=== PATIENT | male | born 1975 | race Caucasian/White ===

== ENCOUNTER 2019-08-04 17:36 | Inpatient (IN) | payer SELFPAY ==
[~2019-08-04] VITALS: Ht 182.9 cm; Wt 83.3 kg
[2019-08-04] MEDS ORDERED: IV NORMAL SALINE 1000ML BAG 1,000 ML IV ONE ×3 (18:00→19:30)
[2019-08-04 18:09] LABS: BASO % 0 % (0-3); EOS % 0 % (0-3); HEMATOCRIT 42.1 % (39.0-53.0); HEMOGLOBIN 14.2 g/dL (13.0-17.5); LYMPH # 1.2 x10^3/uL (1.0-4.8); LYMPH % 12 % (24-48); MEAN CORPUSCULAR HEMOGLOBIN 35 pg (25-35); MEAN CORPUSCULAR HGB CONC 34 g/dL (31-37); MEAN CORPUSCULAR VOLUME 105 fL (79-100); MONO # 1.1 x10^3/uL (0.0-1.1); MONO % 11 % (0-9); NEUT # 7.7 x10^3/uL (1.8-7.7); NEUT % 77 % (31-73); PLATELET COUNT 104 x10^3/uL (140-400); RED BLOOD COUNT 4.02 x10^6/uL (4.30-5.70); RED CELL DISTRIBUTION WIDTH 13.3 % (11.5-14.5)
[2019-08-04 18:19] LABS: PROTHROMBIN TIME PATIENT 12.9 SEC (11.7-14.0)
[2019-08-04 18:31] LABS: ALBUMIN 3.5 g/dL (3.4-5.0); ALBUMIN/GLOBULIN RATIO 0.7 (1.0-1.7); CREATININE 1.1 mg/dL (0.7-1.3); GFR 73.1; MAGNESIUM 1.5 mg/dL (1.8-2.4); TOTAL BILIRUBIN 0.8 mg/dL (0.2-1.0); TOTAL PROTEIN 8.7 g/dL (6.4-8.2)
--- NOTE | 2019-08-04 18:35 | RAD ---
PORTABLE CHEST 1V History: Fever Comparison: None. Findings: No consolidation or pleural effusion. Normal heart size. No pneumothorax. Impression: 1. No acute cardiopulmonary process. Electronically signed by: Lisandro Rodriguez DO (08/04/2019 6:32 PM) [facility]
[2019-08-04 18:36] LABS: POTASSIUM 2.9 mmol/L (3.5-5.1)
[2019-08-04] MEDS ORDERED: POTASSIUM BICARB 20 MEQ EFFERVESCENT TABLET. PO ONE (18:45)
[2019-08-04 19:17] LABS: C-REACTIVE PROTEIN 22.3 mg/L (0-3.3)
--- NOTE | 2019-08-04 19:29 | PHYS DOC ---
Past Medical History Past Medical History: No Pertinent History Past Surgical History: No Surgical History Smoking Status: Never Smoker Alcohol Use: Occasionally General Adult EDM: Chief Complaint: DYSPNEA/RESPIRATOY DISTRESS HPI: HPI: Patient is a 43 year old male with unknown medical history who presents to the ED today with multiple complaints. Patient appears altered. He himself states he has had nausea, vomiting ,cough, SOA, fevers and chills for 1 month. He states he has been quarantining at his house for the last 1 month. He then wonders of another conversations that is not related to the visit, at times does not follow directions trying to get out of bed. At some point he stated he felt weak and hence the reason he called 911. Review of Systems: Review of Systems: Constitutional: Reports fever and chills Eyes: Denies change in visual acuity. [] HENT: Denies nasal congestion or sore throat. [] Respiratory: Reports cough and shortness of breath Cardiovascular: Denies chest pain or edema. [] GI: Denies abdominal pain, nausea, vomiting, bloody stools or diarrhea. [] : Denies dysuria. [] Musculoskeletal: Denies back pain or joint pain. [] Integument: Denies rash. [] Neurologic: Altered mental status. Denies headache, focal weakness or sensory changes. [] Endocrine: Denies polyuria or polydipsia. [] Lymphatic: Denies swollen glands. [] Psychiatric: Denies depression or anxiety. [] Heart Score: Risk Factors: Risk Factors: DM, Current or recent (<one month) smoker, HTN, HLP, family history of CAD, obesity. Risk Scores: Score 0 - 3: 2.5% MACE over next 6 weeks - Discharge Home Score 4 - 6: 20.3% MACE over next 6 weeks - Admit for Clinical Observation Score 7 - 10: 72.7% MACE over next 6 weeks - Early Invasive Strategies Current Medications: Current Medications Medications (Trade) Dose Ordered Sig/Cris Start Time Stop Time Status Last Admin Dose Admin Acetaminophen (Tylenol) 650 mg PRN Q4HRS PRN 08/04/19 19:30 08/05/19 19:29 Azithromycin 250 ml @ 250 mls/hr 1X ONCE 08/04/19 19:30 08/04/19 20:29 Ceftriaxone Sodium (Rocephin) 1 gm 1X ONCE 08/04/19 19:30 08/04/19 19:31 Ondansetron HCl (Zofran) 4 mg PRN Q8HRS PRN 08/04/19 19:30 08/05/19 19:29 Potassium Bicarbonate (Potassium Effervescent Tablet) 40 meq 1X ONCE 08/04/19 18:45 08/04/19 18:47 DC 08/04/19 19:02 40 MEQ Potassium Chloride/Sodium Chloride 1,000 ml @ 75 mls/hr 1X ONCE 08/04/19 21:00 08/05/19 10:19 Sodium Chloride 1,000 ml @ 1,000 mls/hr 1X ONCE 08/04/19 19:30 08/04/19 20:29 Allergies: Allergies: Allergies Coded Allergies Type Severity Reaction Last Updated Verified No Known Drug Allergies 08/04/19 No Physical Exam: PE: Constitutional: Well developed, well nourished, no acute distress, non-toxic appearance. [] HENT: Normocephalic, atraumatic, bilateral external ears normal, oropharynx moist, no oral exudates, nose normal. [] Eyes: PERRLA, EOMI, conjunctiva normal, no discharge. [] Neck: Normal range of motion, no tenderness, supple, no stridor. [] Cardiovascular:Heart rate regular rhythm, no murmur [] Lungs & Thorax: Bilateral breath sounds clear to auscultation [] Abdomen: Bowel sounds normal, soft, no tenderness, no masses, no pulsatile masses. [] Skin: Warm, dry, no erythema, no rash. [] Back: No tenderness, no CVA tenderness. [] Extremities: No tenderness, no cyanosis, no clubbing, ROM intact, no edema. [] Neurologic: Alert and oriented X 1, not following directions at times, normal motor function, normal sensory function, no focal deficits noted. [] Psychologic: flat Current Patient Data: Labs: Laboratory Tests Test 08/04/19 17:50 08/04/19 18:35 White Blood Count 10.0 x10^3/uL (4.0-11.0) Red Blood Count 4.02 x10^6/uL (4.30-5.70) L Hemoglobin 14.2 g/dL (13.0-17.5) Hematocrit 42.1 % (39.0-53.0) Mean Corpuscular Volume 105 fL (79-100) H Mean Corpuscular Hemoglobin 35 pg (25-35) Mean Corpuscular Hemoglobin Concent 34 g/dL (31-37) Red Cell Distribution Width 13.3 % (11.5-14.5) Platelet Count 104 x10^3/uL (140-400) L Neutrophils (%) (Auto) 77 % (31-73) H Lymphocytes (%) (Auto) 12 % (24-48) L Monocytes (%) (Auto) 11 % (0-9) H Eosinophils (%) (Auto) 0 % (0-3) Basophils (%) (Auto) 0 % (0-3) Neutrophils # (Auto) 7.7 x10^3/uL (1.8-7.7) Lymphocytes # (Auto) 1.2 x10^3/uL (1.0-4.8) Monocytes # (Auto) 1.1 x10^3/uL (0.0-1.1) Eosinophils # (Auto) 0.0 x10^3/uL (0.0-0.7) Basophils # (Auto) 0.0 x10^3/uL (0.0-0.2) Prothrombin Time 12.9 SEC (11.7-14.0) Prothrombin Time INR 1.0 (0.8-1.1) Activated Partial Thromboplast Time 28 SEC (24-38) Sodium Level 137 mmol/L (136-145) Potassium Level 2.9 mmol/L (3.5-5.1) *L Chloride Level 94 mmol/L (98-107) L Carbon Dioxide Level 20 mmol/L (21-32) L Anion Gap 23 (6-14) H Blood Urea Nitrogen 7 mg/dL (8-26) L Creatinine 1.1 mg/dL (0.7-1.3) Estimated GFR (Cockcroft-Gault) 73.1 BUN/Creatinine Ratio 6 (6-20) Glucose Level 153 mg/dL (70-99) H Lactic Acid Level 14.5 mmol/L (0.4-2.0) *H Calcium Level 9.0 mg/dL (8.5-10.1) Magnesium Level 1.5 mg/dL (1.8-2.4) L Ferritin 1689 ng/mL (26-388) H Total Bilirubin 0.8 mg/dL (0.2-1.0) Aspartate Amino Transferase (AST) 186 U/L (15-37) H Alanine Aminotransferase (ALT) 128 U/L (16-63) H Alkaline Phosphatase 106 U/L (46-116) Creatine Kinase 1184 U/L (39-308) H Creatine Kinase MB (Mass) 12.4 ng/mL (0.0-3.6) H Creatine Kinase MB Relative Index 1.0 % (0-4) Troponin I Quantitative < 0.017 ng/mL (0.000-0.055) C-Reactive Protein, Quantitative 22.3 mg/L (0-3.3) H UZ-Wbs-L-Type Natriuretic Peptide 58 pg/mL (0-124) Total Protein 8.7 g/dL (6.4-8.2) H Albumin 3.5 g/dL (3.4-5.0) Albumin/Globulin Ratio 0.7 (1.0-1.7) L Lipase 359 U/L (73-393) Procalcitonin 0.23 ng/mL (0.00-0.10) H Thyroid Stimulating Hormone (TSH) 1.181 uIU/mL (0.358-3.74) Ammonia 32 mcmol/L (11-34) Laboratory Tests 08/04/19 17:50 Laboratory Tests 08/04/19 17:50 Vital Signs: Vital Signs Date Time Temp Pulse Resp B/P (MAP) Pulse Ox O2 Delivery O2 Flow Rate FiO2 08/04/19 18:37 107 170/97 (121) 95 08/04/19 18:01 98.9 32 Room Air 98.9 EKG: EKG: [] Radiology/Procedures: Radiology/Procedures: []PROCEDURE: PORTABLE CHEST 1V PORTABLE CHEST 1V History: Fever Comparison: None. Findings: No consolidation or pleural effusion. Normal heart size. No pneumothorax. Impression: 1. No acute cardiopulmonary process. Electronically signed by: Lisandro Haas DO (08/04/2019 6:32 PM) [facility] DICTATED and SIGNED BY: LISANDRO HAAS DO DATE: 08/04/191831 Course & Med Decision Making: Course & Med Decision Making Pertinent Labs and Imaging studies reviewed. (See chart for details) This is a 43-year-old male patient presenting to the ED today with multiple complaints. Patient is altered on arrival to the ED. He is able to state he has had nausea vomiting fever chills for 1 month and today he was weak. He w joshua off into other conversations very easily and sometimes hard to reorient. Vitals on arrival to the ED temperature 98.9, heart rate 115, blood pressure 176/113, respirations 32 on room air, O2 sats 95% Chest x-ray interpreted by radiologist is negative for any acute findings, CT of the head is still pending. CBC with a normal WBC, CMP with K of 2.9 given 40 meq of K in the ED, glucose 153 with Anion gap of 23 likely dehydration, AST 186, ALT 128, CK 1184, lactic 14.5 repeat lactic ordered with IV fluids, Ferritin 1689, C-reactive 22.3 COVID 19 ordered Rocephin and Azithromycin ordered Spoke with Dr. Ayala who accepted patient for admission Dragon Disclaimer: Radha Disclaimer: This electronic medical record was generated, in whole or in part, using a voice recognition dictation system. Date and Time of Reassessment Date: August 04, 2019 Time: 19:40 Fluid Challenge Is the fluid challenge complet: No IBW Target Volume Used: Yes BMI > 30: No Vital Signs Vital Signs: Vital Signs Date Time Temp Pulse Resp B/P (MAP) Pulse Ox O2 Delivery O2 Flow Rate FiO2 08/04/19 18:37 107 170/97 (121) 95 08/04/19 18:01 98.9 32 Room Air 98.9 Temperature Source: Oral Respirations Respiratory Effort: Normal Respiratory Pattern: Normal Cardiovascular Pulse Rhythm: Regular Heart: Nml rate, reg. rhythm Lung Sounds Breath Sounds: Clear Capillary Refil Capillary Refill: Rt Hand > 3 seconds Peripheral Pulse Pulse Location: Monitor Pulse Strength: Normal (2+) Pulse Assessment Method: Monitor Integumentary Skin: Warm Skin Moisture: Dry Skin Turgor: Normal Skin Color: warm Fingernail Color: WNL Departure Departure Impression: Primary Impression: AMS (altered mental status) Qualified Codes: R41.82 - Altered mental status, unspecified Additional Impressions: Person under investigation for COVID-19 Shortness of breath Cough Rhabdomyolysis Qualified Codes: M62.82 - Rhabdomyolysis Sepsis Qualified Codes: A41.9 - Sepsis, unspecified organism Hypokalemia Disposition: ADMITTED INPATIENT Condition: STABLE Referrals: UNKNOWN PCP NAME (PCP) CHIO JORDAN APRN August 04, 2019 19:29
[2019-08-04] MEDS ORDERED: ONDANSETRON PF 4 MG/2 ML VIAL. IV PRN ×2 (19:30→20:30)
[2019-08-04] MEDS ORDERED: AZITHRMYCN 500MG IVPB FOR OMNI 250 ML IV ONE (19:30)
[2019-08-04] MEDS ORDERED: ACETAMINOPHEN 325 MG TABLET. PO PRN (19:30)
[2019-08-04] MEDS ORDERED: cefTRIAXone IV Push 1 GM VIAL. IVP ONE (19:30)
[2019-08-04] MEDS ORDERED: ALBUTEROL SULFATE 2.5 MG/3 ML NEBU. NEB PRN (20:30)
[2019-08-04] MEDS ORDERED: DOCUSATE SODIUM 100 MG CAPSULE. PO PRN (20:30)
[2019-08-04] MEDS: IV NORMAL SALINE 1000ML BAG 1,000 ML IV SCH ×3 (20:30→21:22)
[2019-08-04] MEDS ORDERED: SODIUM PHOSPHATES 19/7GM 133 ML ENEMA. PR PRN (20:30)
[2019-08-04] MEDS ORDERED: guaiFENesin ORAL 200 MG/10 ML LIQUID. PO PRN (20:30)
[2019-08-04] MEDS ORDERED: MAG HYDROX/ALUMINUM HYD/SIMETH 30 ML ORAL.SUSP PO PRN (20:30)
[2019-08-04] MEDS ORDERED: 0.9 % SODIUM CHLORIDE 10 ML DISP.SYRIN. IV PRN (20:30)
[2019-08-04] MEDS ORDERED: VANCOMYCIN 1GM IVPB FOR OMNI 250 ML IV ONE (21:00)
[2019-08-04] MEDS: hydrALAZINE 20 MG/ML VIAL. IVP PRN (21:14)
[2019-08-04] MEDS: ENOXAPARIN 40 MG/0.4 ML SYRINGE. SQ SCH (21:15)
[2019-08-04 21:16] LABS: D-DIMER 3.69 ug/mlFEU (0.00-0.50)
[2019-08-04] MEDS ORDERED: IV NORMAL SALINE 500ML BAG 500 ML IV PRN (21:30)
[2019-08-04] MEDS ORDERED: CEFEPIME HCL IV Push 1 GM VIAL. IVP SCH (22:00)
--- NOTE | 2019-08-04 23:25 | RAD ---
CT scan of the head without contrast 08/04/2019 Clinical History: Altered mental status. Technique: Unenhanced, contiguous, 5 mm axial sections were obtained through the head. One or more of the following individualized dose reduction techniques were utilized for this study: 1. Automated exposure control. 2. Adjustment of the mA and/or kV according to patient size. 3. Use of iterative reconstruction technique. Findings: There is generalized parenchymal atrophy. No acute parenchymal abnormality is seen. No extra-axial fluid collection is noted. No skull fracture is seen. Impression: No acute intracranial abnormality is seen. Electronically signed by: Domingo Reynolds MD (08/04/2019 11:22 PM) [id number]
--- NOTE | 2019-08-04 23:30 | NUR ---
The patient, ZHAO MCLEAN, 43 y/o, M admitted by [facility] SMITH MD, was given written information regarding hospital policies, unit procedures and contact persons. Valuables were checked and left with him.
[2019-08-04 23:45] VITALS: BP 134/80
[2019-08-05] VITALS (7 sets, daily range): BP systolic 125–182; BP diastolic 72–104
[2019-08-05] MEDS: CEFEPIME HCL IV Push 2 GM VIAL. IVP SCH ×4 (00:50→21:32)
[2019-08-05] MEDS: IV NORMAL SALINE 1000ML BAG 1,000 ML IV SCH ×2 (00:58→21:30)
[2019-08-05] MEDS: ACETAMINOPHEN 325 MG TABLET. PO PRN ×2 (01:33→11:41)
[2019-08-05 04:55] LABS: BASO % 0 % (0-3); EOS % 0 % (0-3); HEMATOCRIT 37.4 % (39.0-53.0); HEMOGLOBIN 12.8 g/dL (13.0-17.5); LYMPH # 0.9 x10^3/uL (1.0-4.8); LYMPH % 10 % (24-48); MEAN CORPUSCULAR HEMOGLOBIN 35 pg (25-35); MEAN CORPUSCULAR HGB CONC 34 g/dL (31-37); MEAN CORPUSCULAR VOLUME 102 fL (79-100); MONO # 0.9 x10^3/uL (0.0-1.1); MONO % 10 % (0-9); NEUT # 7.5 x10^3/uL (1.8-7.7); NEUT % 80 % (31-73); PLATELET COUNT 85 x10^3/uL (140-400); RED BLOOD COUNT 3.66 x10^6/uL (4.30-5.70); RED CELL DISTRIBUTION WIDTH 13.2 % (11.5-14.5); WHITE BLOOD COUNT 9.4 x10^3/uL (4.0-11.0)
[2019-08-05 05:12] LABS: CALCIUM 8.1 mg/dL (8.5-10.1); CREATININE 0.7 mg/dL (0.7-1.3); GFR 123.1
[2019-08-05 05:21] LABS: POTASSIUM 2.8 mmol/L (3.5-5.1)
--- NOTE | 2019-08-05 06:57 | EKG ---
[facility] [address] [place] [address] Test Date: 2019-08-04 Test Time: 17:48:51 Pat Name: ZHAO MCLEAN Department: Room: 2 Gender: M Manager Business Information: : 1975 Requested By: CHIO JORDAN Order Number: [id number] Reading MD: Solo Horton Measurements Intervals [place] Rate: 117 P: -62 MA: 100 QRS: 79 QRSD: 78 T: 56 QT: 302 QTc: 425 Interpretive Statements SINUS TACHYCARDIA Electronically Signed On 08-05-2019 8:27:44 CDT by Solo Horton
[2019-08-05] MEDS ORDERED: POTASSIUM BICARB 20 MEQ EFFERVESCENT TABLET. PO ONE ×2 (07:30→09:30)
[2019-08-05] MEDS: hydrALAZINE 20 MG/ML VIAL. IVP PRN ×2 (09:16→13:17)
[2019-08-05 11:35] LABS: BILIRUBIN,URINE NEGATIVE (NEG); CLARITY,URINE CLEAR; COLOR,URINE YELLOW; NITRITE,URINE NEGATIVE (NEG); PH,URINE 7.5 (<5.0-8.0); PROTEIN,URINE 30 mg/dL (NEG-TRACE); UROBILINOGEN,URINE 0.2 mg/dL (0.2 mg/dL)
[2019-08-05] MEDS: cloNIDine HCL 0.1 MG TABLET PO PRN (11:41)
[2019-08-05 11:42] LABS: BARBITURATES NEG (NEG); BENZODIAZEPINES NEG (NEG); CANNABINOIDS NEG (NEG); COCAINE NEG (NEG); METHADONE NEG (NEG); OPIATES NEG (NEG); PHENCYCLIDINE NEG (NEG)
[2019-08-05 11:43] LABS: AMPHETAMINE/METHAMPHETAMINE NEG (NEG)
[2019-08-05] MEDS ORDERED: VANCOMYCIN 1 GM in IV NORMAL SALINE 250ML 250 ML IV SCH (12:00)
[2019-08-05] MEDS: VANCOMYCIN PER PHARMACY MC PRN (12:02)
--- NOTE | 2019-08-05 12:16 | NUR ---
SS following for discharge planning. SS reviewed pt chart and discussed with pt RN. Pt is from home and is currently on room air. Pt is COVID19 pending. SS will continue to follow for discharge planning.
[2019-08-05 12:21] LABS: BACTERIA,URINE 0 /HPF (0-FEW); RBC,URINE 0 /HPF (0-2); SQUAMOUS EPITHELIAL CELL,UR FEW /LPF; WBC,URINE 0 /HPF (0-4)
--- NOTE | 2019-08-05 12:26 | NUR ---
Pharmacy Vancomycin Dosing Note S:Consulted to monitor and dose vancomycin started 08/05/19. O:ZHAO MCLEAN is a 43 year old M with Bacteremia . Height: 6 feet, 0 inches Weight: 86.3 kg [place] Body Weight: 73.10 Adjusted Body Weight: 78.38 Dosing Weight: Actual Other Antibiotics: CEFEPIME LABS: Last BUN: 5 Last Creatinine: 0.7 Creatinine Clearance: >120 mL/min Last WBC: 9.4 Last Procalcitonin: 0.23 Tmax (past 24 hours): 99.6 Microbiology: 08/04 GPC 03/19 BLOOD I/O: 2710/650 Drug Levels: Last level: on at Last dose given 08/05/19 at 0057 Vancomycin Dosing: Loading Dose: x1 Dosing Weight: Actual Target Trough: 15-20 A: Based on: WEIGHT, PHYSICIAN PREFERENCE FOR Q12H DOSING, P: 1. INITIATE Vancomycin 1250 mg IV q12h 2. Follow up Trough level on 08/07/19 at 0000 3. Pharmacy will continue to monitor, follow and adjust therapy as needed. ANUJ PAL RPH, 08/05/19 [id number]
[2019-08-05] MEDS ORDERED: VANCOMYCIN 1.25 GM in IV NORMAL SALINE 250ML 250 ML IV SCH (12:30)
[2019-08-05] MEDS: VANCOMYCIN 1.25 GM in IV NORMAL SALINE 250ML 250 ML IV SCH ×2 (12:45→23:57)
--- NOTE | 2019-08-05 13:54 | CONS ---
DATE OF CONSULTATION: 08/05/2019 REFERRING PHYSICIAN: Christopher Ayala MD REASON FOR CONSULTATION: COVID suspect. HISTORY OF PRESENT ILLNESS: A 43-year-old male with no significant past medical history, comes to the ED with multiple complaints. He has not been feeling well for the last 3 weeks with nausea, vomiting, diarrhea, cough, shortness of breath, some intermittent fever and chills. He has been quarantined at home for about 3 weeks and has been wondering that he may have caught up something at work. He feels weak. He was found to have a fever of 99.6. White count of 10, hemoglobin of 14.2, hematocrit 42, platelets of 104. Potassium of 2.9, sodium of 137, creatinine of 1.1. Lactate of 14.5, ferritin 1689, bilirubin 0.8, AST 186, ALT 128, alkaline phosphatase 106. CK 1184, albumin 3.5, lipase 359. Procalcitonin 0.23. Ammonia 32. The patient got a dose of azithromycin, was started on cefepime. ID consult has been requested for antibiotic management. Blood culture today 1/4 bottles is positive for Gram-positive cocci in clusters. The patient underwent a head CT for altered mental status, which did not show any acute intracranial process. Chest x-ray showed no acute cardiopulmonary process. ID consult has been requested for antibiotic management. Today, the patient states he continues to have nausea, vomiting, diarrhea. Denies any abdominal pain. Denies any headache. Has some cough. Denies any chest pain. Does have generalized aches and pains. Denies any sick contact. Denies any new medication. PAST MEDICAL HISTORY: Positive for borderline high blood pressure. ALLERGIES: No known drug allergies. SOCIAL HISTORY: Denies smoking, ETOH or illicit drug use. Lives with his father, his and two kids. 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 REVIEW OF SYSTEMS: Negative except for above in HPI. PHYSICAL EXAMINATION: VITAL SIGNS: Temperature 99.2, T-max 99.6, pulse 96, respiratory rate 18, blood pressure 169/100, oxygen saturation 98% on room air. GENERAL: Alert, oriented x 3 male, in no acute distress, lying comfortably in bed, nontoxic appearing. HEENT: Normocephalic, atraumatic, anicteric. No thrush. NECK: Supple, no JVD. LUNGS: Clear bilaterally. No wheezing. HEART: S1, S2. No gallops or murmurs. ABDOMEN: Soft, nontender, nondistended, no rebound, no guarding. EXTREMITIES: No edema, no cyanosis. DERMATOLOGIC: Warm, dry. No generalized rash. NEUROLOGIC: Alert and oriented x 3, grossly nonfocal. PSYCHIATRIC: Cooperative, appropriate for mood and affect. LABORATORY DATA: WBC 9.4, hemoglobin 12.8, it was 14.2, hematocrit 37.4, platelets 85. Sodium 137, potassium 2.9, chloride 94, bicarbonate 20, BUN 7, creatinine 1.1. Lactate was 14.5, repeat is 1.3, ferritin 1689. C-reactive protein 22.3. Procalcitonin 0.23. AST 186, ALT 128. CK 1184. Troponin normal. Total protein 8.7, albumin 3.5, lipase 359. TSH within normal limits. UDS negative. MICROBIOLOGY: Blood culture 1/4 bottles positive for Gram-positive cocci in clusters. IMAGING: CT head as above. Chest x-ray negative for acute infiltrate. IMPRESSION: 1. Febrile illness present prior to admission. 2. Nausea, vomiting, diarrhea. 3. Abnormal liver function tests. 4. Anemia and thrombocytopenia. 5. Lactic acidosis, now resolved. 6. Bacteremia 1/4 bottles, Gram-positive cocci in clusters could be contaminant. 7. Rhabdomyolysis. 8. Hypokalemia. RECOMMENDATIONS: 1. Continue empiric cefepime. 2. dose IV vancomycin for now. 3. Monitor renal functions per pharmacy protocol. 4. Maintain fluid and electrolyte balance. 5. Obtain stool cultures,WBC, stool for C. diff, Cryptosporidium and Giardia antigen. 6. Follow up abdominal ultrasound. 7. Maintain aspiration precaution. 8. Follow up labs and cultures. 9. Continue supportive care. Thank you for allowing me to participate in this patient's care. If you have any questions, do not hesitate to contact me. ZAK BREEN MD DR: GENARO/carla JOB#: [id number] / [id number] DIANA
--- NOTE | 2019-08-05 14:44 | PDOC1 ---
History and Physical Date of Admission Date of Admission 08/05/2019 Identification/Chief Complaint Chief Complaint Fever Source Source: Chart review, Patient History of Present Illness History of Present Illness Patient is a 43 yea rold male with nos significant past medical history who was in his usual state of health until more or less 3 weeks prior to his admission when he reportes hsaving intermittent "sweating episodes". He seems quite upset durint the interview and has a myriad of complaints which do not seem to correlate to one another. He referes having headaches some post nasal drip but no history of allergies or post nasal drip. He does refer some cough and sputum production with clear sputum but no pleurisy. he denies sick contacts, he denies quantified fever but does refer feeling intermittently "feverish". Patient denies odynophagia no lymphadenopathy, no shortness of breath at the beginning of his symptoms but now has progressed to feeling quite dyspneic with minimal exertion. He refers feeling "wiped out" He also refers having nausea and vomiting over the last week with very little intake, some loose stools as well, which have subsided as of the time of my visit. Patient denies hematemesis, no hematochezia no black tarry stools. The patient denies travels outside the area. He believes he may have contracted "something" at his worksite, he has been furloughed for 3 weeks now. The patient refers having "collapsed" on several ocassions while trying to go to the bathroom and he felt so weak to the point he could not get up from the floor. the family members had to call EMS and he gets quite teary eyed relating the story especially when he tells how EMs had to "pick him up" from the ground and carry him on a stretcher to the ambulance. He was worked up n the Ed for altered mental status and had a ct of the head done with no significant findings. no real incfectious proces seeemsto be isolated at the present time but did have one out of 4 BC bottles positive. We will continue to provide supportive measures, plan of care discussed in detail I ahve addressed all concerns to the best of my abilities. Past Medical History Past Medical History Reviewed and found negative Family History Family History: Family History Unknown, Other (Reviewed and found negative noncontributory to the present) Current Problem List Problem List Problems Medical Problems: (1) AMS (altered mental status) Status: Acute (2) Cough Status: Acute (3) Hypokalemia Status: Acute (4) Person under investigation for COVID-19 Status: Acute (5) Rhabdomyolysis Status: Acute (6) Sepsis Status: Acute (7) Shortness of breath Status: Acute Current Medications Current Medications Current Medications Medications (Trade) Dose Ordered Sig/Cris Start Time Stop Time Status Last Admin Dose Admin Acetaminophen (Tylenol) 650 mg PRN Q4HRS PRN 08/04/19 20:30 08/05/19 11:41 650 MG Al Hydroxide/Mg Hydroxide (Mylanta Plus Xs) 30 ml PRN DAILY PRN 08/04/19 20:30 Albuterol Sulfate (Ventolin Neb Soln) 2.5 mg PRN Q4HRS PRN 08/04/19 20:30 Azithromycin 250 ml @ 250 mls/hr 1X ONCE 08/04/19 19:30 08/04/19 20:29 DC 08/04/19 19:30 250 MLS/HR Cefepime HCl (Maxipime) 2 gm Q8HRS 08/04/19 22:00 08/05/19 13:16 2 GM Ceftriaxone Sodium (Rocephin) 1 gm 1X ONCE 08/04/19 19:30 08/04/19 19:31 DC 08/04/19 20:34 1 GM Clonidine HCl (Catapres) 0.1 mg PRN Q6HRS PRN 08/04/19 20:30 08/05/19 11:41 0.1 MG Docusate Sodium (Colace) 100 mg PRN BID PRN 08/04/19 20:30 Enoxaparin Sodium (Lovenox 40mg Syringe) 40 mg Q24H 08/04/19 21:00 08/04/19 21:15 40 MG Guaifenesin (Robitussin) 200 mg PRN Q4HRS PRN 08/04/19 20:30 Hydralazine HCl (Apresoline Inj) 10 mg PRN Q4HRS PRN 08/04/19 20:30 08/05/19 13:17 10 MG Ondansetron HCl (Zofran) 4 mg PRN Q4HRS PRN 08/04/19 20:30 Potassium Bicarbonate (Potassium Effervescent Tablet) 20 meq 1X ONCE 08/05/19 09:30 08/05/19 09:31 DC 08/05/19 11:15 20 MEQ Potassium Chloride/Sodium Chloride 1,000 ml @ 75 mls/hr 1X ONCE 08/04/19 21:00 08/05/19 10:19 DC 08/04/19 21:56 75 MLS/HR Sodium Monofluorophosphate (Fleet Adult) 133 ml PRN DAILY PRN 08/04/19 20:30 Sodium Chloride 1,000 ml @ 100 mls/hr Q10H 08/05/19 11:00 08/05/19 00:58 100 MLS/HR Sodium Chloride (Normal Saline Flush) 3 ml QSHIFT PRN 08/04/19 20:30 Vancomycin HCl (Vanco Per Pharmacy) 1 each PRN DAILY PRN 08/05/19 12:00 08/05/19 12:02 1 EACH Vancomycin HCl (Vancomycin Trough Level) 1 each 1X ONCE 08/07/19 00:00 08/07/19 00:01 Vancomycin HCl 1.25 gm/Sodium Chloride 250 ml @ 167 mls/hr Q12H 08/05/19 12:30 08/05/19 12:45 167 MLS/HR Vancomycin HCl 1 gm/Sodium Chloride 250 ml @ 250 mls/hr Q12H 08/05/19 12:00 UNV Allergies Allergies Allergies Coded Allergies Type Severity Reaction Last Updated Verified No Known Drug Allergies 08/04/19 No ROS Review of System CONSTITUTIONAL: No fever or chills EYES: No recent changes SKIN: No rash or itching CARDIOVASCULAR: No chest pain, syncope, palpitations, or edema RESPIRATORY: No SOB or cough GASTROINTESTINAL: No nausea, vomiting or abdominal pain NEUROLOGICAL: No headaches or weakness ENDOCRINE: No cold or heat intolerance GENITOURINARY: No urgency or frequency of urination MUSCULOSKELETAL: No back pain or joint pain LYMPHATICS: No enlarged lymph nodes PSYCHIATRIC: No anxiety or depression Physical Exam Physical Exam GEN.: No apparent distress. Alert and oriented. HEENT: Head is normocephalic, atraumatic NECK: Supple. LUNGS: Clear to auscultation. HEART: RRR, S1, S2 present. Peripheral pulses intact ABDOMEN: Soft, nontender. Positive bowel sounds. EXTREMITIES: Without any cyanosis. NEUROLOGIC: Normal speech, normal tone PSYCHIATRIC: Normal affect, normal mood. SKIN: No ulcerations Vitals Vitals Vital Signs Date Time Temp Pulse Resp B/P (MAP) Pulse Ox O2 Delivery O2 Flow Rate FiO2 08/05/19 13:17 120 196/101 08/05/19 11:58 Room Air 08/05/19 11:00 98.8 16 98 98.8 Labs Labs Laboratory Tests Test 08/04/19 17:50 08/04/19 18:35 08/05/19 04:00 08/05/19 04:05 White Blood Count 10.0 x10^3/uL (4.0-11.0) 9.4 x10^3/uL (4.0-11.0) Red Blood Count 4.02 x10^6/uL (4.30-5.70) 3.66 x10^6/uL (4.30-5.70) Hemoglobin 14.2 g/dL (13.0-17.5) 12.8 g/dL (13.0-17.5) Hematocrit 42.1 % (39.0-53.0) 37.4 % (39.0-53.0) Mean Corpuscular Volume 105 fL (79-100) 102 fL (79-100) Mean Corpuscular Hemoglobin 35 pg (25-35) 35 pg (25-35) Mean Corpuscular Hemoglobin Concent 34 g/dL (31-37) 34 g/dL (31-37) Red Cell Distribution Width 13.3 % (11.5-14.5) 13.2 % (11.5-14.5) Platelet Count 104 x10^3/uL (140-400) 85 x10^3/uL (140-400) Neutrophils (%) (Auto) 77 % (31-73) 80 % (31-73) Lymphocytes (%) (Auto) 12 % (24-48) 10 % (24-48) Monocytes (%) (Auto) 11 % (0-9) 10 % (0-9) Eosinophils (%) (Auto) 0 % (0-3) 0 % (0-3) Basophils (%) (Auto) 0 % (0-3) 0 % (0-3) Neutrophils # (Auto) 7.7 x10^3/uL (1.8-7.7) 7.5 x10^3/uL (1.8-7.7) Lymphocytes # (Auto) 1.2 x10^3/uL (1.0-4.8) 0.9 x10^3/uL (1.0-4.8) Monocytes # (Auto) 1.1 x10^3/uL (0.0-1.1) 0.9 x10^3/uL (0.0-1.1) Eosinophils # (Auto) 0.0 x10^3/uL (0.0-0.7) 0.0 x10^3/uL (0.0-0.7) Basophils # (Auto) 0.0 x10^3/uL (0.0-0.2) 0.0 x10^3/uL (0.0-0.2) Prothrombin Time 12.9 SEC (11.7-14.0) Prothromb Time International Ratio 1.0 (0.8-1.1) Activated Partial Thromboplast Time 28 SEC (24-38) Fibrinogen 830 mg/dL (200-440) D-Dimer (Opal) 3.69 ug/mlFEU (0.00-0.50) Sodium Level 137 mmol/L (136-145) 136 mmol/L (136-145) Potassium Level 2.9 mmol/L (3.5-5.1) 2.8 mmol/L (3.5-5.1) Chloride Level 94 mmol/L (98-107) 99 mmol/L (98-107) Carbon Dioxide Level 20 mmol/L (21-32) 26 mmol/L (21-32) Anion Gap 23 (6-14) 11 (6-14) Blood Urea Nitrogen 7 mg/dL (8-26) 5 mg/dL (8-26) Creatinine 1.1 mg/dL (0.7-1.3) 0.7 mg/dL (0.7-1.3) Estimated GFR (Cockcroft-Gault) 73.1 123.1 BUN/Creatinine Ratio 6 (6-20) Glucose Level 153 mg/dL (70-99) 85 mg/dL (70-99) Lactic Acid Level 14.5 mmol/L (0.4-2.0) 1.3 mmol/L (0.4-2.0) Calcium Level 9.0 mg/dL (8.5-10.1) 8.1 mg/dL (8.5-10.1) Magnesium Level 1.5 mg/dL (1.8-2.4) Ferritin 1689 ng/mL (26-388) Total Bilirubin 0.8 mg/dL (0.2-1.0) Aspartate Amino Transf (AST/SGOT) 186 U/L (15-37) Alanine Aminotransferase (ALT/SGPT) 128 U/L (16-63) Alkaline Phosphatase 106 U/L (46-116) Creatine Kinase 1184 U/L (39-308) Creatine Kinase MB (Mass) 12.4 ng/mL (0.0-3.6) Creatine Kinase MB Relative Index 1.0 % (0-4) Troponin I Quantitative < 0.017 ng/mL (0.000-0.055) C-Reactive Protein, Quantitative 22.3 mg/L (0-3.3) ML-Lcu-R-Type Natriuretic Peptide 58 pg/mL (0-124) Total Protein 8.7 g/dL (6.4-8.2) Albumin 3.5 g/dL (3.4-5.0) Albumin/Globulin Ratio 0.7 (1.0-1.7) Lipase 359 U/L (73-393) Procalcitonin 0.23 ng/mL (0.00-0.10) Thyroid Stimulating Hormone (TSH) 1.181 uIU/mL (0.358-3.74) Ammonia 32 mcmol/L (11-34) Test 08/05/19 11:00 Urine Collection Type Unknown Urine Color Yellow Urine Clarity Clear Urine pH 7.5 (<5.0-8.0) Urine Specific [place] 1.015 (1.000-1.030) Urine Protein 30 mg/dL (NEG-TRACE) Urine Glucose (UA) Negative mg/dL (NEG) Urine Ketones (Stick) 15 mg/dL (NEG) Urine Blood Trace (NEG) Urine Nitrite Negative (NEG) Urine Bilirubin Negative (NEG) Urine Urobilinogen Dipstick 0.2 mg/dL (0.2 mg/dL) Urine Leukocyte Esterase Negative (NEG) Urine RBC 0 /HPF (0-2) Urine WBC 0 /HPF (0-4) Urine Squamous Epithelial Cells Few /LPF Urine Bacteria 0 /HPF (0-FEW) Urine Opiates Screen Neg (NEG) Urine Methadone Screen Neg (NEG) Urine Barbiturates Neg (NEG) Urine Phencyclidine Screen Neg (NEG) Urine Amphetamine/Methamphetamine Neg (NEG) Urine Benzodiazepines Screen Neg (NEG) Urine Cocaine Screen Neg (NEG) Urine Cannabinoids Screen Neg (NEG) Urine Ethyl Alcohol Neg (NEG) Laboratory Tests Test 08/04/19 17:50 08/04/19 18:35 08/05/19 04:00 08/05/19 04:05 White Blood Count 10.0 x10^3/uL (4.0-11.0) 9.4 x10^3/uL (4.0-11.0) Red Blood Count 4.02 x10^6/uL (4.30-5.70) 3.66 x10^6/uL (4.30-5.70) Hemoglobin 14.2 g/dL (13.0-17.5) 12.8 g/dL (13.0-17.5) Hematocrit 42.1 % (39.0-53.0) 37.4 % (39.0-53.0) Mean Corpuscular Volume 105 fL (79-100) 102 fL (79-100) Mean Corpuscular Hemoglobin 35 pg (25-35) 35 pg (25-35) Mean Corpuscular Hemoglobin Concent 34 g/dL (31-37) 34 g/dL (31-37) Red Cell Distribution Width 13.3 % (11.5-14.5) 13.2 % (11.5-14.5) Platelet Count 104 x10^3/uL (140-400) 85 x10^3/uL (140-400) Neutrophils (%) (Auto) 77 % (31-73) 80 % (31-73) Lymphocytes (%) (Auto) 12 % (24-48) 10 % (24-48) Monocytes (%) (Auto) 11 % (0-9) 10 % (0-9) Eosinophils (%) (Auto) 0 % (0-3) 0 % (0-3) Basophils (%) (Auto) 0 % (0-3) 0 % (0-3) Neutrophils # (Auto) 7.7 x10^3/uL (1.8-7.7) 7.5 x10^3/uL (1.8-7.7) Lymphocytes # (Auto) 1.2 x10^3/uL (1.0-4.8) 0.9 x10^3/uL (1.0-4.8) Monocytes # (Auto) 1.1 x10^3/uL (0.0-1.1) 0.9 x10^3/uL (0.0-1.1) Eosinophils # (Auto) 0.0 x10^3/uL (0.0-0.7) 0.0 x10^3/uL (0.0-0.7) Basophils # (Auto) 0.0 x10^3/uL (0.0-0.2) 0.0 x10^3/uL (0.0-0.2) Prothrombin Time 12.9 SEC (11.7-14.0) Prothromb Time International Ratio 1.0 (0.8-1.1) Activated Partial Thromboplast Time 28 SEC (24-38) Fibrinogen 830 mg/dL (200-440) D-Dimer (Opal) 3.69 ug/mlFEU (0.00-0.50) Sodium Level 137 mmol/L (136-145) 136 mmol/L (136-145) Potassium Level 2.9 mmol/L (3.5-5.1) 2.8 mmol/L (3.5-5.1) Chloride Level 94 mmol/L (98-107) 99 mmol/L (98-107) Carbon Dioxide Level 20 mmol/L (21-32) 26 mmol/L (21-32) Anion Gap 23 (6-14) 11 (6-14) Blood Urea Nitrogen 7 mg/dL (8-26) 5 mg/dL (8-26) Creatinine 1.1 mg/dL (0.7-1.3) 0.7 mg/dL (0.7-1.3) Estimated GFR (Cockcroft-Gault) 73.1 123.1 BUN/Creatinine Ratio 6 (6-20) Glucose Level 153 mg/dL (70-99) 85 mg/dL (70-99) Lactic Acid Level 14.5 mmol/L (0.4-2.0) 1.3 mmol/L (0.4-2.0) Calcium Level 9.0 mg/dL (8.5-10.1) 8.1 mg/dL (8.5-10.1) Magnesium Level 1.5 mg/dL (1.8-2.4) Ferritin 1689 ng/mL (26-388) Total Bilirubin 0.8 mg/dL (0.2-1.0) Aspartate Amino Transf (AST/SGOT) 186 U/L (15-37) Alanine Aminotransferase (ALT/SGPT) 128 U/L (16-63) Alkaline Phosphatase 106 U/L (46-116) Creatine Kinase 1184 U/L (39-308) Creatine Kinase MB (Mass) 12.4 ng/mL (0.0-3.6) Creatine Kinase MB Relative Index 1.0 % (0-4) Troponin I Quantitative < 0.017 ng/mL (0.000-0.055) C-Reactive Protein, Quantitative 22.3 mg/L (0-3.3) ND-Hqx-M-Type Natriuretic Peptide 58 pg/mL (0-124) Total Protein 8.7 g/dL (6.4-8.2) Albumin 3.5 g/dL (3.4-5.0) Albumin/Globulin Ratio 0.7 (1.0-1.7) Lipase 359 U/L (73-393) Procalcitonin 0.23 ng/mL (0.00-0.10) Thyroid Stimulating Hormone (TSH) 1.181 uIU/mL (0.358-3.74) Ammonia 32 mcmol/L (11-34) Test 08/05/19 11:00 Urine Collection Type Unknown Urine Color Yellow Urine Clarity Clear Urine pH 7.5 (<5.0-8.0) Urine Specific [place] 1.015 (1.000-1.030) Urine Protein 30 mg/dL (NEG-TRACE) Urine Glucose (UA) Negative mg/dL (NEG) Urine Ketones (Stick) 15 mg/dL (NEG) Urine Blood Trace (NEG) Urine Nitrite Negative (NEG) Urine Bilirubin Negative (NEG) Urine Urobilinogen Dipstick 0.2 mg/dL (0.2 mg/dL) Urine Leukocyte Esterase Negative (NEG) Urine RBC 0 /HPF (0-2) Urine WBC 0 /HPF (0-4) Urine Squamous Epithelial Cells Few /LPF Urine Bacteria 0 /HPF (0-FEW) Urine Opiates Screen Neg (NEG) Urine Methadone Screen Neg (NEG) Urine Barbiturates Neg (NEG) Urine Phencyclidine Screen Neg (NEG) Urine Amphetamine/Methamphetamine Neg (NEG) Urine Benzodiazepines Screen Neg (NEG) Urine Cocaine Screen Neg (NEG) Urine Cannabinoids Screen Neg (NEG) Urine Ethyl Alcohol Neg (NEG) VTE Prophylaxis Ordered VTE Prophylaxis Devices: No VTE Pharmacological Prophylaxi: Yes Assessment/Plan Assessment/Plan Altered mental status resolved Positive blood culture Febrile illness? rule out COVID 19 Nausea, vomiting, diarrhea. seems to have subsided, will continue to monitor Macrocytic anemia elevated lactic acid which is resolved, porbably secondary to emesis and poor oral intake with moderate to severe dehydration One set of blood cultures positive. Contaminant most likely Elevated CPK secondary to dehydration and retching effort Hypokalemia secondary to emesis and diarrhea Melania: replace electrolytes, Supportive measures Follow results of blood cultures Follow results of COVID-19 testing IV fluid resuscitation Further recommendations based on the clinical course Reassess in the a.m. DVT prophylaxis with LovenoGIOVANY Mccormick MD August 05, 2019 14:44
[2019-08-05] MEDS ORDERED: ENOXAPARIN 40 MG/0.4 ML SYRINGE. SQ SCH (14:45)
[2019-08-05] MEDS ORDERED: LORazepam 1 MG TABLET PO PRN (15:15)
[2019-08-05] MEDS ORDERED: METOPROLOL TARTRATE 5 MG/5 ML VIAL. IVP PRN (17:30)
--- NOTE | 2019-08-05 18:27 | NUR ---
CALLED pt sON (Alden) [phone] NO ANSWER AND MAILBOX FULL; CALLED PT DAUGHTER (MARQUEZ) [phone] NO ANSWER AND MAILBOX FULL; NOTIFIED PATRICIA PINEDA REGARDING PATIENT WILL BE TRANSFERRED TO [facility] ON 08/05. Addendum: 08/05/19 at 1846 by NBA MAYFIELD RN RN WRONG PATIENT RECORD---
[2019-08-05] MEDS: LACTOBACILLUS RHAMNOSUS GG 1 CAPSULE. PO SCH (20:36)
[2019-08-05] MEDS: ENOXAPARIN 40 MG/0.4 ML SYRINGE. SQ SCH (20:37)
[2019-08-05] MEDS: LORazepam 1 MG TABLET PO PRN (20:37)
[2019-08-05] MEDS: NICOTINE 21MG PATCH. TD SCH (20:38)
[2019-08-06] MEDS ORDERED: LORazepam 1 MG TABLET PO PRN (02:30)
[2019-08-06] MEDS ORDERED: diphenhydrAMINE 50 MG/ML VIAL IVP PRN (02:30)
[2019-08-06] MEDS: HALOPERIDOL LACTATE 5 MG/ML VIAL. IVP PRN ×2 (02:50→22:21)
[2019-08-06 03:00] VITALS: BP 135/92
[2019-08-06] MEDS: THIAMINE INJ 100 MG in IV DEXTROSE 5% 50 ML IV SCH ×2 (03:13→08:05)
[2019-08-06] MEDS: ZIPRASIDONE IM 20 MG VIAL. IM ONE ×2 (03:17→04:31)
[2019-08-06 05:08] LABS: CREATININE 0.9 mg/dL (0.7-1.3); GFR 92.1
[2019-08-06] MEDS: CEFEPIME HCL IV Push 2 GM VIAL. IVP SCH ×2 (05:37→13:58)
[2019-08-06 07:00] VITALS: BP 151/97
[2019-08-06] MEDS: NICOTINE 21MG PATCH. TD SCH (08:04)
[2019-08-06] MEDS: IV NORMAL SALINE 1000ML BAG 1,000 ML IV SCH ×2 (08:05→20:42)
[2019-08-06] MEDS: LACTOBACILLUS RHAMNOSUS GG 1 CAPSULE. PO SCH ×2 (08:05→20:46)
[2019-08-06 10:57] VITALS: BP 134/79
[2019-08-06] MEDS: VANCOMYCIN 1.25 GM in IV NORMAL SALINE 250ML 250 ML IV SCH (11:19)
[2019-08-06] MEDS: VANCOMYCIN PER PHARMACY MC PRN (11:32)
--- NOTE | 2019-08-06 12:44 | PDOC ---
Infectious Disease Note Subjective: Subjective Patient is confused and paranoid this morning Says" held against his will here at the hospital" Wants to be discharged AMA Discussed with nursing staff Patient was alert oriented x3 as per night nurse ,but this morning as above behavior Patient refuses to answer any ROS questions Vital Signs: Vital Signs Vital Signs Date Time Temp Pulse Resp B/P (MAP) Pulse Ox O2 Delivery O2 Flow Rate FiO2 08/06/19 10:57 97.0 81 18 134/79 (97) 97 Room Air 97.0 Physical Exam: PHYSICAL EXAM GENERAL: Alert, awake, lying in bed Appears comfortable nontoxic appearing. Patient refused for exam On room air Heart regular rhythm on telemetry Abdomen appears flat No edema Derm no generalized rash Medications: Inpatient Meds: Current Medications Medications (Trade) Dose Ordered Sig/Cris Start Time Stop Time Status Last Admin Dose Admin Acetaminophen (Tylenol) 650 mg PRN Q4HRS PRN 08/04/19 20:30 08/05/19 11:41 650 MG Al Hydroxide/Mg Hydroxide (Mylanta Plus Xs) 30 ml PRN DAILY PRN 08/04/19 20:30 Albuterol Sulfate (Ventolin Neb Soln) 2.5 mg PRN Q4HRS PRN 08/04/19 20:30 Azithromycin 250 ml @ 250 mls/hr 1X ONCE 08/04/19 19:30 08/04/19 20:29 DC 08/04/19 19:30 250 MLS/HR Cefepime HCl (Maxipime) 2 gm Q8HRS 08/04/19 22:00 08/06/19 05:37 2 GM Ceftriaxone Sodium (Rocephin) 1 gm 1X ONCE 08/04/19 19:30 08/04/19 19:31 DC 08/04/19 20:34 1 GM Clonidine HCl (Catapres) 0.1 mg PRN Q6HRS PRN 08/04/19 20:30 08/05/19 11:41 0.1 MG Diphenhydramine HCl (Benadryl) 25 mg PRN Q15MIN PRN 08/06/19 02:30 08/06/19 02:50 25 MG Docusate Sodium (Colace) 100 mg PRN BID PRN 08/04/19 20:30 Enoxaparin Sodium (Lovenox 40mg Syringe) 40 mg Q24H 08/05/19 14:45 UNV Guaifenesin (Robitussin) 200 mg PRN Q4HRS PRN 08/04/19 20:30 Haloperidol Lactate (Haldol Inj) 5 mg PRN Q4HRS PRN 08/06/19 02:30 08/06/19 02:50 5 MG Hydralazine HCl (Apresoline Inj) 10 mg PRN Q4HRS PRN 08/04/19 20:30 08/05/19 13:17 10 MG Lactobacillus Rhamnosus (Culturelle) 1 cap BID 08/05/19 21:00 08/06/19 08:05 1 CAP Lorazepam (Ativan Inj) 4 mg PRN Q1HR PRN 08/06/19 03:15 08/06/19 12:03 4 MG Lorazepam (Ativan) 4 mg PRN Q1HR PRN 08/06/19 02:30 Metoprolol Tartrate (Lopressor Vial) 5 mg PRN Q5MIN PRN 08/05/19 17:30 08/05/19 17:33 5 MG Nicotine (Nicoderm Cq 21mg) 1 patch DAILY 08/05/19 20:30 08/06/19 08:04 1 PATCH Ondansetron HCl (Zofran) 4 mg PRN Q4HRS PRN 08/04/19 20:30 Potassium Bicarbonate (Potassium Effervescent Tablet) 20 meq 1X ONCE 08/05/19 09:30 08/05/19 09:31 DC 08/05/19 11:15 20 MEQ Potassium Chloride/Sodium Chloride 1,000 ml @ 75 mls/hr 1X ONCE 08/04/19 21:00 08/05/19 10:19 DC 08/04/19 21:56 75 MLS/HR Sodium Monofluorophosphate (Fleet Adult) 133 ml PRN DAILY PRN 08/04/19 20:30 Sodium Chloride 1,000 ml @ 100 mls/hr Q10H 08/05/19 11:00 08/06/19 08:05 100 MLS/HR Sodium Chloride (Normal Saline Flush) 3 ml QSHIFT PRN 08/04/19 20:30 Thiamine HCl 100 mg/Dextrose 51 ml @ 102 mls/hr DAILY 08/06/19 03:30 08/06/19 08:05 102 MLS/HR Vancomycin HCl (Vanco Per Pharmacy) 1 each PRN DAILY PRN 08/05/19 12:00 08/06/19 11:49 DC 08/06/19 11:32 1 EACH Vancomycin HCl (Vancomycin Trough Level) 1 each 1X ONCE 08/07/19 00:00 08/06/19 11:48 DC Vancomycin HCl 1.25 gm/Sodium Chloride 250 ml @ 167 mls/hr Q12H 08/05/19 12:30 08/06/19 11:47 DC 08/06/19 11:19 167 MLS/HR Vancomycin HCl 1 gm/Sodium Chloride 250 ml @ 250 mls/hr Q12H 08/05/19 12:00 UNV Ziprasidone (Geodon Im) 20 mg 1X ONCE 08/06/19 03:30 08/06/19 03:31 DC 08/06/19 04:31 20 MG Labs: Lab Laboratory Tests Test 08/05/19 15:05 08/06/19 04:30 Potassium Level 3.2 mmol/L (3.5-5.1) Creatinine 0.9 mg/dL (0.7-1.3) Estimated GFR (Cockcroft-Gault) 92.1 Objective: Assessment: Encephalopathy fluctuating Paranoia History of nausea and vomiting improved Diarrhea present on admission Abnormal liver function test Anemia and thrombocytopenia Lactic acidosis, now resolved. Staph hominis bacteremia 1/4 bottles, likely contaminant. Rhabdomyolysis. Hypokalemia. Plan: Plan of Care Follow-up COVID-19 Maintain isolation precautions per protocol DC IV cefepime and vancomycin Follow-up labs and cultures including stool studies Follow up abdominal ultrasound still pending. Maintain aspiration precaution. Continue supportive care. Discussed with nursing staff ZAK BREEN MD August 06, 2019 12:44
--- NOTE | 2019-08-06 13:00 | NUR ---
Nursing: Patient confused, impulsive, hallucinating, reaching for things in the air, talking to himself, thinking he is riding in an elevator. See [place] documentation, PRN ativan given. Patient called the [facility] police department from his cell phone stating he is trapped in a room. 1:1 observation. High fall risk. Will continue to monitor.
--- NOTE | 2019-08-06 13:44 | NUR ---
Covid result negative per lab documentation
[2019-08-06 15:00] VITALS: BP 133/78
--- NOTE | 2019-08-06 16:10 | RAD ---
Complete abdominal ultrasound dated 08/06/2019. No comparison available. Clinical data indication: Elevated liver function tests. FINDINGS: Liver is of diffuse increased echogenicity, compatible with fatty infiltration. No apparent hepatic mass. Intrahepatic and extra hepatic biliary tree are normal in caliber. The common bile duct measures 4 mm. The gallbladder is contracted. No apparent gallstone or gallbladder wall thickening. No pericholecystic fluid. Right kidney measures 12.1 cm in length. Left kidney measures 13.3 cm in length. No hydronephrosis. Pancreas appears somewhat enlarged and is of decreased echogenicity relative to the liver. No apparent mass or peripancreatic inflammatory changes. Spleen is homogeneous in echogenicity and measures 10.7 cm in length. Limited visualized portions of aorta and IVC unremarkable. No significant ascites. IMPRESSION: 1. Pancreas is somewhat enlarged and of decreased echogenicity, nonspecific. Consider acute pancreatitis. Correlate with amylase and lipase. 2. Hepatomegaly and hepatic steatosis. 3. Limited evaluation the gallbladder due to gallbladder collapse. No apparent cholelithiasis or gallbladder wall thickening. Electronically signed by: Jacinto Kennedy MD (08/06/2019 4:07 PM) OMARI
--- NOTE | 2019-08-06 16:40 | NUR ---
ASSUMED PATIENT CARE AT THIS TIME PATIENT WAS TRANSFERRED FROM ROOM 672 TO 648 DUE TO NEGATIVE COVID-19 RESULT, PATIENT IS A 1;1 WITH SITTER AT THE BEDSIDE, PATIENT IS CONFUSED AND HALLUCINATING AT THIS TIME, BELIEVES HE IS SOMEWHERE ELSE AND TALKING TO PEOPLE WHO ARE NOT HERE. PATIENT IS THRASHING AROUND IN THE BED AND WAILING HIS ARMS AND LEGS ALL OVER, SIDRAILS PADDED PER THIS BODYWORK THERAPIST AND SITTER, COMFORT MEASURES GIVEN AND REASSURANCE, WILL REVIEW MEDICATIONS AT THIS TIME.
--- NOTE | 2019-08-06 18:55 | PDOC ---
PROGRESS NOTES Chief Complaint Chief Complaint Altered mental status resolved Positive blood culture Febrile illness etiology undetermined his COVID 19 is negative. Nausea, vomiting, diarrhea. seems to have subsided, will continue to monitor Macrocytic anemia elevated lactic acid which is resolved, porbably secondary to emesis and poor o ral intake with moderate to severe dehydration One set of blood cultures positive. Contaminant most likely Elevated CPK secondary to dehydration and retching effort Hypokalemia secondary to emesis and diarrhea Melania: replace electrolytes, Supportive measures Follow results of blood cultures d c antibiotics and observe IV fluid resuscitation Further recommendations based on the clinical course Reassess in the a.m. DVT prophylaxis with Lovenox History of Present Illness History of Present Illness Agitated earlier in the day please see sales consultant insurance notes at the time of my visit the patient seems to be calm cool and collected. No acute events reported overnight, case discussed with nursing staff patient in no acute distress no c omplaints during my visit Vitals Vitals Vital Signs Date Time Temp Pulse Resp B/P (MAP) Pulse Ox O2 Delivery O2 Flow Rate FiO2 08/06/19 15:00 98.0 92 20 133/78 (96) 97 Room Air 98.0 Physical Exam Physical Exam GENERAL: Alert, awake, lying in bed Appears comfortable nontoxic appearing. Patient refused for exam On room air Heart regular rhythm on telemetry Abdomen appears flat No edema Derm no generalized rash Labs LABS Laboratory Tests Test 08/06/19 04:30 Creatinine 0.9 mg/dL (0.7-1.3) Estimated GFR (Cockcroft-Gault) 92.1 Gamma Glutamyl Transpeptidase 494 U/L (10-85) Review of Systems Review of Systems Pertinent as per HPI otherwise 14 point review of system is negative Assessment and Plan Assessmemt and Plan Problems Medical Problems: (1) AMS (altered mental status) Status: Acute (2) Cough Status: Acute (3) Hypokalemia Status: Acute (4) Person under investigation for COVID-19 Status: Acute (5) Rhabdomyolysis Status: Acute (6) Sepsis Status: Acute (7) Shortness of breath Status: Acute Comment Review of Relevant I have reviewed the following items bonnie (where applicable) has been applied. Labs Laboratory Tests Test 08/05/19 04:00 08/05/19 04:05 08/05/19 11:00 08/05/19 12:21 White Blood Count 9.4 x10^3/uL (4.0-11.0) Red Blood Count 3.66 x10^6/uL (4.30-5.70) Hemoglobin 12.8 g/dL (13.0-17.5) Hematocrit 37.4 % (39.0-53.0) Mean Corpuscular Volume 102 fL (79-100) Mean Corpuscular Hemoglobin 35 pg (25-35) Mean Corpuscular Hemoglobin Concent 34 g/dL (31-37) Red Cell Distribution Width 13.2 % (11.5-14.5) Platelet Count 85 x10^3/uL (140-400) Neutrophils (%) (Auto) 80 % (31-73) Lymphocytes (%) (Auto) 10 % (24-48) Monocytes (%) (Auto) 10 % (0-9) Eosinophils (%) (Auto) 0 % (0-3) Basophils (%) (Auto) 0 % (0-3) Neutrophils # (Auto) 7.5 x10^3/uL (1.8-7.7) Lymphocytes # (Auto) 0.9 x10^3/uL (1.0-4.8) Monocytes # (Auto) 0.9 x10^3/uL (0.0-1.1) Eosinophils # (Auto) 0.0 x10^3/uL (0.0-0.7) Basophils # (Auto) 0.0 x10^3/uL (0.0-0.2) Sodium Level 136 mmol/L (136-145) Potassium Level 2.8 mmol/L (3.5-5.1) Chloride Level 99 mmol/L (98-107) Carbon Dioxide Level 26 mmol/L (21-32) Anion Gap 11 (6-14) Blood Urea Nitrogen 5 mg/dL (8-26) Creatinine 0.7 mg/dL (0.7-1.3) Estimated GFR (Cockcroft-Gault) 123.1 Glucose Level 85 mg/dL (70-99) Calcium Level 8.1 mg/dL (8.5-10.1) Lactic Acid Level 1.3 mmol/L (0.4-2.0) Urine Collection Type Unknown Urine Color Yellow Urine Clarity Clear Urine pH 7.5 (<5.0-8.0) Urine Specific [place] 1.015 (1.000-1.030) Urine Protein 30 mg/dL (NEG-TRACE) Urine Glucose (UA) Negative mg/dL (NEG) Urine Ketones (Stick) 15 mg/dL (NEG) Urine Blood Trace (NEG) Urine Nitrite Negative (NEG) Urine Bilirubin Negative (NEG) Urine Urobilinogen Dipstick 0.2 mg/dL (0.2 mg/dL) Urine Leukocyte Esterase Negative (NEG) Urine RBC 0 /HPF (0-2) Urine WBC 0 /HPF (0-4) Urine Squamous Epithelial Cells Few /LPF Urine Bacteria 0 /HPF (0-FEW) Urine Opiates Screen Neg (NEG) Urine Methadone Screen Neg (NEG) Urine Barbiturates Neg (NEG) Urine Phencyclidine Screen Neg (NEG) Urine Amphetamine/Methamphetamine Neg (NEG) Urine Benzodiazepines Screen Neg (NEG) Urine Cocaine Screen Neg (NEG) Urine Cannabinoids Screen Neg (NEG) Urine Ethyl Alcohol Neg (NEG) Clostridium difficile Toxin (PCR) Negative (NEGATIVE) Giardia Antigen Negative (Negative) Test 08/05/19 15:05 08/06/19 04:30 Potassium Level 3.2 mmol/L (3.5-5.1) Creatinine 0.9 mg/dL (0.7-1.3) Estimated GFR (Cockcroft-Gault) 92.1 Gamma Glutamyl Transpeptidase 494 U/L (10-85) Laboratory Tests Test 08/06/19 04:30 Creatinine 0.9 mg/dL (0.7-1.3) Estimated GFR (Cockcroft-Gault) 92.1 Gamma Glutamyl Transpeptidase 494 U/L (10-85) Microbiology 08/05/19 Fecal Leukocyte Stain - Final, Complete 08/04/19 Blood Culture - Preliminary, Resulted NO GROWTH AFTER 2 DAYS Medications Current Medications Sodium Chloride 1,000 ml @ 1,000 mls/hr 1X ONCE IV Last administered on 08/04/19at 18:40; Start 08/04/19 at 18:00; Stop 08/04/19 at 18:59; Status DC Potassium Bicarbonate (Potassium Effervescent Tablet) 40 meq 1X ONCE PO Last administered on 08/04/19at 19:02; Start 08/04/19 at 18:45; Stop 08/04/19 at 18:47; Status DC Sodium Chloride 1,000 ml @ 1,000 mls/hr 1X ONCE IV Last administered on 08/04/19at 20:35; Start 08/04/19 at 19:30; Stop 08/04/19 at 20:29; Status DC Ondansetron HCl (Zofran) 4 mg PRN Q8HRS PRN IV NAUSEA/VOMITING; Start 08/04/19 at 19:30; Stop 08/04/19 at 20:26; Status DC Acetaminophen (Tylenol) 650 mg PRN Q4HRS PRN PO FEVER > 100.3'F; Start 08/04/19 at 19:30; Stop 08/04/19 at 20:26; Status DC Potassium Chloride/Sodium Chloride 1,000 ml @ 75 mls/hr 1X ONCE IV Last administered on 08/04/19at 21:56; Start 08/04/19 at 21:00; Stop 08/05/19 at 10:19; Status DC Sodium Chloride 1,000 ml @ 1,000 mls/hr 1X ONCE IV Last administered on 08/04/19at 22:01; Start 08/04/19 at 19:30; Stop 08/04/19 at 20:29; Status DC Ceftriaxone Sodium (Rocephin) 1 gm 1X ONCE IVP Last administered on 08/04/19at 20:34; Start 08/04/19 at 19:30; Stop 08/04/19 at 19:31; Status DC Azithromycin 250 ml @ 250 mls/hr 1X ONCE IV Last administered on 08/04/19at 19:30; Start 08/04/19 at 19:30; Stop 08/04/19 at 20:29; Status DC Cefepime HCl (Maxipime) 1 gm Q8HRS IVP ; Start 08/04/19 at 22:00; Stop 08/04/19 at 20:18; Status DC Sodium Chloride 1,000 ml @ 2,340 mls/hr Q26M IV ; Start 08/04/19 at 20:30; Stop 08/04/19 at 21:30; Status DC Sodium Chloride 500 ml @ 1,000 mls/hr PRN Q30MIN PRN IV SEE COMMENTS; Start 08/04/19 at 21:30 Cefepime HCl (Maxipime) 2 gm Q8HRS IVP Last administered on 08/06/19at 13:58; Start 08/04/19 at 22:00; Stop 08/06/19 at 15:03; Status DC Hydralazine HCl (Apresoline Inj) 10 mg PRN Q4HRS PRN IVP ELEVATED BP, SEE COMMENTS Last administered on 08/05/19at 13:17; Start 08/04/19 at 20:30 Sodium Chloride (Normal Saline Flush) 3 ml QSHIFT PRN IV AFTER MEDS AND BLOOD DRAWS; Start 08/04/19 at 20:30 Sodium Chloride 1,000 ml @ 100 mls/hr Q10H IV Last administered on 08/06/19at 08:05; Start 08/05/19 at 11:00 Ondansetron HCl (Zofran) 4 mg PRN Q4HRS PRN IV NAUSEA/VOMITING; Start 08/04/19 at 20:30 Acetaminophen (Tylenol) 650 mg PRN Q4HRS PRN PO TEMP OVER 100.4F OR MILD PAIN Last administered on 08/05/19at 11:41; Start 08/04/19 at 20:30 Al Hydroxide/Mg Hydroxide (Mylanta Plus Xs) 30 ml PRN DAILY PRN PO HEARTBURN / GAS; Start 08/04/19 at 20:30 Clonidine HCl (Catapres) 0.1 mg PRN Q6HRS PRN PO SBP>160 OR DBP>90 Last administered on 08/05/19at 11:41; Start 08/04/19 at 20:30 Sodium Monofluorophosphate (Fleet Adult) 133 ml PRN DAILY PRN NC CONSTIPATION; Start 08/04/19 at 20:30 Docusate Sodium (Colace) 100 mg PRN BID PRN PO HARD STOOLS; Start 08/04/19 at 20:30 Albuterol Sulfate (Ventolin Neb Soln) 2.5 mg PRN Q4HRS PRN NEB SHORTNESS OF BREATH; Start 08/04/19 at 20:30 Guaifenesin (Robitussin) 200 mg PRN Q4HRS PRN PO COUGH; Start 08/04/19 at 20:30 Enoxaparin Sodium (Lovenox 40mg Syringe) 40 mg Q24H SQ Last administered on 08/05/19at 20:37; Start 08/04/19 at 21:00 Vancomycin HCl 250 ml @ 250 mls/hr 1X ONCE IV Last administered on 08/05/19at 00:57; Start 08/04/19 at 21:00; Stop 08/04/19 at 21:59; Status DC Potassium Bicarbonate (Potassium Effervescent Tablet) 40 meq 1X ONCE PO Last administered on 08/05/19at 09:15; Start 08/05/19 at 07:30; Stop 08/05/19 at 07:31; Status DC Potassium Bicarbonate (Potassium Effervescent Tablet) 20 meq 1X ONCE PO Last administered on 08/05/19at 11:15; Start 08/05/19 at 09:30; Stop 08/05/19 at 09:31; Status DC Vancomycin HCl 1 gm/Sodium Chloride 250 ml @ 250 mls/hr Q12H IV ; Start 08/05/19 at 12:00; Status UNV Vancomycin HCl (Vanco Per Pharmacy) 1 each PRN DAILY PRN MC SEE COMMENTS Last administered on 08/06/19at 11:32; Start 08/05/19 at 12:00; Stop 08/06/19 at 11:49; Status DC Vancomycin HCl 1.25 gm/Sodium Chloride 250 ml @ 167 mls/hr Q12H IV ; Start 08/05/19 at 12:30; Stop 08/05/19 at 12:01; Status DC Vancomycin HCl (Vancomycin Trough Level) 1 each 1X ONCE MC ; Start 08/07/19 at 00:00; Stop 08/06/19 at 11:48; Status DC Vancomycin HCl 1.25 gm/Sodium Chloride 250 ml @ 167 mls/hr Q12H IV Last administered on 08/06/19at 11:19; Start 08/05/19 at 12:30; Stop 08/06/19 at 11:4 7; Status DC Enoxaparin Sodium (Lovenox 40mg Syringe) 40 mg Q24H SQ ; Start 08/05/19 at 14:45; Status UNV Lorazepam (Ativan) 1 mg PRN Q8HRS PRN PO ANXIETY / AGITATION Last administered on 08/05/19at 15:15; Start 08/05/19 at 15:15; Stop 08/05/19 at 20:06; Status DC Lactobacillus Rhamnosus (Culturelle) 1 cap BID PO Last administered on 08/06/19at 08:05; Start 08/05/19 at 21:00 Metoprolol Tartrate (Lopressor Vial) 5 mg PRN Q5MIN PRN IVP TACHYCARDIA Last administered on 08/05/19at 17:33; Start 08/05/19 at 17:30 Lorazepam (Ativan) 1 mg PRN Q4HRS PRN PO ANXIETY / AGITATION Last administered on 08/05/19at 20:37; Start 08/05/19 at 20:15 Nicotine (Nicoderm Cq 21mg) 1 patch DAILY TD Last administered on 08/06/19at 08:04; Start 08/05/19 at 20:30 Lorazepam (Ativan Inj) 2 mg PRN Q1HR PRN IV For CIWA 8-14 Last administered on 08/06/19at 02:50; Start 08/05/19 at 22:30 Lorazepam (Ativan) 4 mg PRN Q1HR PRN PO For CIWA 8-14; Start 08/06/19 at 02:30 Haloperidol Lactate (Haldol Inj) 5 mg PRN Q4HRS PRN IVP Hallucinatns,Confu sn,Delirium Last administered on 08/06/19at 02:50; Start 08/06/19 at 02:30 Diphenhydramine HCl (Benadryl) 25 mg PRN Q15MIN PRN IVP EPS symptoms 2'Haldol admin Last administered on 08/06/19at 02:50; Start 08/06/19 at 02:30 Ziprasidone (Geodon Im) 20 mg 1X ONCE IM Last administered on 08/06/19 04:31; Start 08/06/19 at 03:30; Stop 08/06/19 at 03:31; Status DC Thiamine HCl 100 mg/Dextrose 51 ml @ 102 mls/hr DAILY IV Last administered on 08/06/19at 08:05; Start 08/06/19 at 03:30 Lorazepam (Ativan Inj) 4 mg PRN Q1HR PRN IV For CIWA 15 or greater Last administered on 08/06/19at 17:40; Start 08/06/19 at 03:15 Vitals/I & O Vital Sign - Last 24 Hours 08/05/19 08/05/19 08/05/19 08/06/19 19:44 19:48 23:01 03:00 Temp 99.4 99.4 98.9 99.4 99.4 98.9 Pulse 110 84 98 Resp 16 18 20 B/P (MAP) 125/73 (90) 134/72 (92) 135/92 (106) Pulse Ox 97 96 98 O2 Delivery Room Air Room Air Room Air Room Air 08/06/19 08/06/19 08/06/19 08/06/19 07:00 08:10 10:57 15:00 Temp 96.5 97.0 98.0 96.5 97.0 98.0 Pulse 100 81 92 Resp 20 18 20 B/P (MAP) 151/97 (115) 134/79 (97) 133/78 (96) Pulse Ox 100 97 97 O2 Delivery Room Air Room Air Room Air Room Air Intake and Output 08/05/19 08/05/19 08/06/19 14:59 22:59 06:59 Intake Total 500 ml 320 ml 1450 ml Output Total 450 ml 300 ml 500 ml Balance 50 ml 20 ml 950 ml GIOVANY HAZEL MD August 06, 2019 18:55
[2019-08-06] MEDS ORDERED: POTASSIUM CHLORIDE 20MEQ 100 ML IV ONE ×2 (20:15→22:15)
[2019-08-06] MEDS ORDERED: MAGNESIUM SULFATE 2GM 50 ML IV ONE (20:15)
[2019-08-06 20:25] VITALS: BP 148/97
[2019-08-06] MEDS: ENOXAPARIN 40 MG/0.4 ML SYRINGE. SQ SCH (20:37)
[2019-08-06] MEDS: cloNIDine HCL 0.2 MG TABLET PO SCH (20:46)
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
[2019-08-06 23:18] VITALS: BP 127/87
[2019-08-07] MEDS: HALOPERIDOL LACTATE 5 MG/ML VIAL. IVP PRN ×2 (02:29→10:39)
[2019-08-07 03:54] VITALS: BP 140/89
[2019-08-07] MEDS: IV NORMAL SALINE 1000ML BAG 1,000 ML IV SCH ×2 (06:36→13:00)
[2019-08-07 07:08] VITALS: BP 130/93
[2019-08-07] MEDS: cloNIDine HCL 0.2 MG TABLET PO SCH ×3 (07:21→21:32)
--- NOTE | 2019-08-07 07:55 | NUR ---
Notified by Charge Nurse of pt with lab results of blood cultures positive. Called and left message with answering service and Physician paged before this nurse left and received ok orders to start Vanco. by pharmacy.
[2019-08-07] MEDS: LACTOBACILLUS RHAMNOSUS GG 1 CAPSULE. PO SCH ×2 (07:56→21:00)
[2019-08-07] MEDS: NICOTINE 21MG PATCH. TD SCH (07:56)
[2019-08-07] MEDS: VANCOMYCIN PER PHARMACY MC PRN (08:35)
--- NOTE | 2019-08-07 08:38 | NUR ---
Pharmacy Vancomycin Dosing Note S: Consulted to monitor and dose vancomycin started 08/05/19. O: ZHAO MCLEAN is a 43 year old M with bacteremia. Other Antibiotics: N/A LABS: Last BUN: 5 Last Creatinine: 0.8 Creatinine Clearance: > 100 mL/min Last WBC: 9.4 Last Procalcitonin: 0.23 Tmax (past 24 hours): 98.1 Microbiology: BLOOD CX (08/04): STAPH HOMINIS I/O: 2270/1250 Vancomycin Dosing: Dosing Weight: Actual Target Trough: 15-20 A: Patient requires restart of vancomycin due to new positive blood cultures on 08/06. Patient's SCr is 0.8 with an eCrCl of > 100 ml/min. Initiate the following, dosed with aggressive frequency for bacteremia: P: 1. Initiate Vancomycin 1000 mg IV q8h 2. Follow up Trough level on 08/08/19 at 0730 3. Pharmacy will continue to monitor, follow and adjust therapy as needed. LIZBETH AGUILAR [facility], 08/07/19 [id number]
[2019-08-07] MEDS: THIAMINE INJ 100 MG in IV DEXTROSE 5% 50 ML IV SCH (09:00)
[2019-08-07] MEDS: VANCOMYCIN 1 GM in IV NORMAL SALINE 250ML 250 ML IV SCH ×2 (09:03→16:29)
[2019-08-07] MEDS: MULTIVIT INFUSN,ADULT 4,VIT K 10 ML, THIAMINE INJ 100 MG, FOLIC ACID INJ 1 MG in IV NOR... IV SCH (09:03)
--- NOTE | 2019-08-07 09:14 | PDOC ---
Infectious Disease Note Subjective Subjective 1:1 observation + confusion and hallucination No fever, vomiting or diarrhea reported ROS ROS unobtainable Vital Sign Vital Signs Vital Signs Date Time Temp Pulse Resp B/P (MAP) Pulse Ox O2 Delivery O2 Flow Rate FiO2 08/07/19 07:21 130/93 08/07/19 07:08 97.7 98 18 99 Room Air 97.7 Physical Exam PHYSICAL EXAM GENERAL: Resting quietly, did not awaken LUNGS: Clear, nonlabored CV: S1 S2 ABD: Nondistended EXT: No edema Labs Lab Laboratory Tests Test 08/07/19 04:15 Creatinine 0.8 mg/dL (0.7-1.3) Estimated GFR (Cockcroft-Gault) 105.5 IMPRESSION: 1. Pancreas is somewhat enlarged and of decreased echogenicity, nonspecific. Consider acute pancreatitis. Correlate with amylase and lipase. 2. Hepatomegaly and hepatic steatosis. 3. Limited evaluation the gallbladder due to gallbladder collapse. No apparent cholelithiasis or gallbladder wall thickening. Micro Microbiology 08/06/19 Blood Culture - Preliminary, Resulted NO GROWTH AFTER 1 DAY 08/03. BLOOD CULTURE Final GRAM POSITIVE COCCI IN CLUSTERS IN 1 OF 4 BOTTLES(AEROBIC);REPRESENTING 2 SETS DRAWN. THE RESULT WAS CALLED TO [facility]()ON 08/05/19 AT 0957 BY Mian HEADLEY. THE BLOOD CULTURE HAS BEEN SENT TO [facility] FOR FURTHER WORKUP. AMMENDED REPORT: SECOND BOTTLE OF THIS SET IS NOW POSITIVE, ALSO WITH GRAM POSITIVE COCCI IN CLUSTERS. 2 OF 4 BOTTLES. ONE OF TWO SETS. CALLED TO JOSE CARLOS CHAVEZ RN ON 6 SOUTH AT 6:30 ON 08/07/19 [facility] BLOOD CULTURE LC Final Final [STAPHYLOCOCCUS HOMINIS] Growth of organism in only one of multiple sets; isolation does not necessarily indicate infection. Contact Objective Assessment Encephalopathy fluctuating Paranoia History of nausea and vomiting improved Diarrhea present on admission. C. diff & Giardia negative Abnormal liver function test; abnormal ultrasound report Anemia and thrombocytopenia Lactic acidosis, now resolved. Staph hominis bacteremia 1/4 bottles, likely contaminant from 08/03. Now reported 2 of 4 bottles. Rhabdomyolysis. Hypokalemia. Plan Plan of Care vanc per pharmacy protocol, restarted 08/06 f/u [facility] COVID-19 neg, 08/03 Monitor labs and cultures Maintain aspiration precautions Supportive care. D/w nursing Attending Co-Sign The patient was seen and examined at the bedside. The chart was reviewed. The case was discussed with SNAKE CHARMER. Agree with the plan of care f/u bc ,likely contaminant monitor renal functions closely maintain adequate fluid balance U/S Abn pancreas ИРИНА BRITTON APRN August 07, 2019 09:14 ZAK BREEN MD August 07, 2019 12:26
--- NOTE | 2019-08-07 10:24 | NUR ---
IP:Pt is COVID negative.
--- NOTE | 2019-08-07 10:38 | PDOC ---
PROGRESS NOTES Chief Complaint Chief Complaint IMPRESSION Altered mental status hx severe alcohol abuse ACUTE METABOLIC ENCEPHALOPATHY Positive blood culture? contaminent Febrile illness etiology undetermined his COVID 19 is negative. Blood culture 1/4 bottles is positive for Gram-positive cocci in clusters.SECOND BOTTLE OF THIS SET IS NOW POSITIVE, ALSO WITh GRAM POSITIVE COCCI IN CLUSTERS. Nausea, vomiting, diarrhea. seems to have subsided, will continue to monitor Macrocytic anemia WITH THROMBOCYTOPENIA elevated lactic acid which is resolved, porbably secondary to emesis and poor oral intake with moderate to severe dehydration Elevated CPK secondary to dehydration and retching effort Hypokalemia secondary to emesis and diarrhea transaminitis sec to ETOH likely Hepatomegaly and hepatic steatosis. ELEVATED D-DIMER 08/06 drinks 2 pints a day of vodka, denies tick bites, or exposure to deers, rabbits, has not hunted since he was a child Plan: replace electrolytes, banana bag Supportive measures Follow results of blood cultures cont iv vancomycin IV fluid resuscitation 1:1 nursing DVT prophylaxis with Lovenox GI CONSULT NEUROLOGY CONSULT CARDIOLOGY CONSULT ECHO CPK B12 38 min pt exam, chart review, > 50% of time spent with exam, chart review, pt care coordination History of Present Illness History of Present Illness Agitated earlier in the day please see eligibility consultant notes at the time of my visit the patient seems to be calm cool and collected. No acute events reported overnight, case discussed with nursing staff patient in no acute distress no complaints during my visit Vitals Vitals Vital Signs Date Time Temp Pulse Resp B/P (MAP) Pulse Ox O2 Delivery O2 Flow Rate FiO2 08/07/19 07:21 130/93 08/07/19 07:08 97.7 98 18 99 Room Air 97.7 Physical Exam Physical Exam GENERAL: Resting quietly, thinks he is at home, known current year LUNGS: Clear, nonlabored CV: S1 S2 ABD: Nondistended EXT: No edema + confusion and hallucination General: Alert, Cooperative, mild distress, Other (mild-mod tremor , not oriented to place) Heart: Regular rate, Normal S1 Lungs: Clear Abdomen: Normal bowel sounds, Soft Extremities: No cyanosis, No edema, No tenderness/swelling Skin: No rashes Labs LABS REASON: TRANSAMINITIS PROCEDURE: ABDOMEN COMPLETE Complete abdominal ultrasound dated 08/06/2019. No comparison available. Clinical data indication: Elevated liver function tests. FINDINGS: Liver is of diffuse increased echogenicity, compatible with fatty infiltration. No apparent hepatic mass. Intrahepatic and extra hepatic biliary tree are normal in caliber. The common bile duct measures 4 mm. The gallbladder is contracted. No apparent gallstone or gallbladder wall thickening. No pericholecystic fluid. Right kidney measures 12.1 cm in length. Left kidney measures 13.3 cm in length. No hydronephrosis. Pancreas appears somewhat enlarged and is of decreased echogenicity relative to the liver. No apparent mass or peripancreatic inflammatory changes. Spleen is homogeneous in echogenicity and measures 10.7 cm in length. Limited visualized portions of aorta and IVC unremarkable. No significant ascites. IMPRESSION: 1. Pancreas is somewhat enlarged and of decreased echogenicity, nonspecific. Consider acute pancreatitis. Correlate with amylase and lipase. 2. Hepatomegaly and hepatic steatosis. 3. Limited evaluation the gallbladder due to gallbladder collapse. No apparent cholelithiasis or gallbladder wall thickening. Electronically signed by: Jacinto Kennedy MD (08/06/2019 4:07 PM) [facility] [place] and SIGNED BY: AJCINTO KENNEDY MD DATE: 08/06/191606 Procedure Result BLOOD CULTURE Final GRAM POSITIVE COCCI IN CLUSTERS IN 1 OF 4 BOTTLES(AEROBIC);REPRESENTING 2 SETS DRAWN. THE RESULT WAS CALLED TO [facility] [place](6)ON 08/05/19 AT 0957 BY Mian HEADLEY. THE BLOOD CULTURE HAS BEEN SENT TO [facility] FOR FURTHER WORKUP. AMMENDED REPORT: SECOND BOTTLE OF THIS SET IS NOW POSITIVE, ALSO WITH GRAM POSITIVE COCCI IN CLUSTERS. 2 OF 4 BOTTLES. ONE OF TWO SETS. CALLED TO JOSE CARLOS CHAVEZ RN ON 6 [address]OUTH AT 6:30 ON 08/07/19 [facility] * This is a corrected result. * A prior result that was reported as final has been changed. -------- ---- STATUS: ADM IN ORD. PHYSICIAN: CHIO JORDAN APRN REASON: AMS PROCEDURE: CT HEAD WO CONTRAST CT scan of the head without contrast 08/04/2019 Clinical History: Altered mental status. Technique: Unenhanced, contiguous, 5 mm axial sections were obtained through the head. One or more of the following individualized dose reduction techniques were utilized for this study: 1. Automated exposure control. 2. Adjustment of the mA and/or kV according to patient size. 3. Use of iterative reconstruction technique. Findings: There is generalized parenchymal atrophy. No acute parenchymal abnormality is seen. No extra-axial fluid collection is noted. No skull fracture is seen. Impression: No acute intracranial abnormality is seen. Electronically signed by: Domingo Reynolds MD (08/04/2019 11:22 PM) [id number] DICTATED and SIGNED BY: DOMINGO REYNOLDS MD DATE: 08/04/192321 Laboratory Tests Test 08/07/19 04:15 Creatinine 0.8 mg/dL (0.7-1.3) Estimated GFR (Cockcroft-Gault) 105.5 Assessment and Plan Assessmemt and Plan Problems Medical Problems: (1) AMS (altered mental status) Status: Acute (2) Cough Status: Acute (3) Hypokalemia Status: Acute (4) Person under investigation for COVID-19 Status: Acute (5) Rhabdomyolysis Status: Acute (6) Sepsis Status: Acute (7) Shortness of breath Status: Acute Comment Review of Relevant I have reviewed the following items bonnie (where applicable) has been applied. Labs Laboratory Tests Test 08/05/19 11:00 08/05/19 12:21 08/05/19 15:05 08/06/19 04:30 Urine Collection Type Unknown Urine Color Yellow Urine Clarity Clear Urine pH 7.5 (<5.0-8.0) Urine Specific [place] 1.015 (1.000-1.030) Urine Protein 30 mg/dL (NEG-TRACE) Urine Glucose (UA) Negative mg/dL (NEG) Urine Ketones (Stick) 15 mg/dL (NEG) Urine Blood Trace (NEG) Urine Nitrite Negative (NEG) Urine Bilirubin Negative (NEG) Urine Urobilinogen Dipstick 0.2 mg/dL (0.2 mg/dL) Urine Leukocyte Esterase Negative (NEG) Urine RBC 0 /HPF (0-2) Urine WBC 0 /HPF (0-4) Urine Squamous Epithelial Cells Few /LPF Urine Bacteria 0 /HPF (0-FEW) Urine Opiates Screen Neg (NEG) Urine Methadone Screen Neg (NEG) Urine Barbiturates Neg (NEG) Urine Phencyclidine Screen Neg (NEG) Urine Amphetamine/Methamphetamine Neg (NEG) Urine Benzodiazepines Screen Neg (NEG) Urine Cocaine Screen Neg (NEG) Urine Cannabinoids Screen Neg (NEG) Urine Ethyl Alcohol Neg (NEG) Clostridium difficile Toxin (PCR) Negative (NEGATIVE) Giardia Antigen Negative (Negative) Potassium Level 3.2 mmol/L (3.5-5.1) Creatinine 0.9 mg/dL (0.7-1.3) Estimated GFR (Cockcroft-Gault) 92.1 Gamma Glutamyl Transpeptidase 494 U/L (10-85) Test 08/07/19 04:15 Creatinine 0.8 mg/dL (0.7-1.3) Estimated GFR (Cockcroft-Gault) 105.5 Laboratory Tests Test 08/07/19 04:15 Creatinine 0.8 mg/dL (0.7-1.3) Estimated GFR (Cockcroft-Gault) 105.5 Microbiology 08/06/19 Blood Culture - Preliminary, Resulted NO GROWTH AFTER 1 DAY 08/05/19 Fecal Leukocyte Stain - Final, Complete Medications Current Medications Sodium Chloride 1,000 ml @ 1,000 mls/hr 1X ONCE IV Last administered on 08/04/19at 18:40; Start 08/04/19 at 18:00; Stop 08/04/19 at 18:59; Status DC Potassium Bicarbonate (Potassium Effervescent Tablet) 40 meq 1X ONCE PO Last administered on 08/04/19at 19:02; Start 08/04/19 at 18:45; Stop 08/04/19 at 18:47; Status DC Sodium Chloride 1,000 ml @ 1,000 mls/hr 1X ONCE IV Last administered on 08/04/19at 20:35; Start 08/04/19 at 19:30; Stop 08/04/19 at 20:29; Status DC Ondansetron HCl (Zofran) 4 mg PRN Q8HRS PRN IV NAUSEA/VOMITING; Start 08/04/19 at 19:30; Stop 08/04/19 at 20:26; Status DC Acetaminophen (Tylenol) 650 mg PRN Q4HRS PRN PO FEVER > 100.3'F; Start 08/04/19 at 19:30; Stop 08/04/19 at 20:26; Status DC Potassium Chloride/Sodium Chloride 1,000 ml @ 75 mls/hr 1X ONCE IV Last a dministered on 08/04/19at 21:56; Start 08/04/19 at 21:00; Stop 08/05/19 at 10:19; Status DC Sodium Chloride 1,000 ml @ 1,000 mls/hr 1X ONCE IV Last administered on 08/04/19at 22:01; Start 08/04/19 at 19:30; Stop 08/04/19 at 20:29; Status DC Ceftriaxone Sodium (Rocephin) 1 gm 1X ONCE IVP Last administered on 08/04/19at 20:34; Start 08/04/19 at 19:30; Stop 08/04/19 at 19:31; Status DC Azithromycin 250 ml @ 250 mls/hr 1X ONCE IV Last administered on 08/04/19at 19:30; Start 08/04/19 at 19:30; Stop 08/04/19 at 20:29; Status DC Cefepime HCl (Maxipime) 1 gm Q8HRS IVP ; Start 08/04/19 at 22:00; Stop 08/04/19 at 20:18; Status DC Sodium Chloride 1,000 ml @ 2,340 mls/hr Q26M IV ; Start 08/04/19 at 20:30; Stop 08/04/19 at 21:30; Status DC Sodium Chloride 500 ml @ 1,000 mls/hr PRN Q30MIN PRN IV SEE COMMENTS; Start 08/04/19 at 21:30 Cefepime HCl (Maxipime) 2 gm Q8HRS IVP Last administered on 08/06/19at 13:58; Start 08/04/19 at 22:00; Stop 08/06/19 at 15:03; Status DC Hydralazine HCl (Apresoline Inj) 10 mg PRN Q4HRS PRN IVP ELEVATED BP, SEE COMMENTS Last administered on 08/05/19at 13:17; Start 08/04/19 at 20:30 Sodium Chloride (Normal Saline Flush) 3 ml QSHIFT PRN IV AFTER MEDS AND BLOOD DRAWS; Start 08/04/19 at 20:30 Sodium Chloride 1,000 ml @ 100 mls/hr Q10H IV Last administered on 08/07/19at 06:36; Start 08/05/19 at 11:00 Ondansetron HCl (Zofran) 4 mg PRN Q4HRS PRN IV NAUSEA/VOMITING; Start 08/04/19 at 20:30 Acetaminophen (Tylenol) 650 mg PRN Q4HRS PRN PO TEMP OVER 100.4F OR MILD PAIN Last administered on 08/05/19at 11:41; Start 08/04/19 at 20:30 Al Hydroxide/Mg Hydroxide (Mylanta Plus Xs) 30 ml PRN DAILY PRN PO HEARTBURN / GAS; Start 08/04/19 at 20:30 Clonidine HCl (Catapres) 0.1 mg PRN Q6HRS PRN PO SBP>160 OR DBP>90 Last administered on 08/05/19at 11:41; Start 08/04/19 at 20:30 Sodium Monofluorophosphate (Fleet Adult) 133 ml PRN DAILY PRN WI CONSTIPATION; Start 08/04/19 at 20:30 Docusate Sodium (Colace) 100 mg PRN BID PRN PO HARD STOOLS; Start 08/04/19 at 20:30 Albuterol Sulfate (Ventolin Neb Soln) 2.5 mg PRN Q4HRS PRN NEB SHORTNESS OF BREATH; Start 08/04/19 at 20:30 Guaifenesin (Robitussin) 200 mg PRN Q4HRS PRN PO COUGH; Start 08/04/19 at 20:30 Enoxaparin Sodium (Lovenox 40mg Syringe) 40 mg Q24H SQ Last administered on 08/06/19at 20:37; Start 08/04/19 at 21:00 Vancomycin HCl 250 ml @ 250 mls/hr 1X ONCE IV Last administered on 08/05/19at 00:57; Start 08/04/19 at 21:00; Stop 08/04/19 at 21:59; Status DC Potassium Bicarbonate (Potassium Effervescent Tablet) 40 meq 1X ONCE PO Last administered on 08/05/19at 09:15; Start 08/05/19 at 07:30; Stop 08/05/19 at 07:31; Status DC Potassium Bicarbonate (Potassium Effervescent Tablet) 20 meq 1X ONCE PO Last administered on 08/05/19at 11:15; Start 08/05/19 at 09:30; Stop 08/05/19 at 09:31; Status DC Vancomycin HCl 1 gm/Sodium Chloride 250 ml @ 250 mls/hr Q12H IV ; Start 08/05/19 at 12:00; Status UNV Vancomycin HCl (Vanco Per Pharmacy) 1 each PRN DAILY PRN MC SEE COMMENTS Last administered on 08/06/19at 11:32; Start 08/05/19 at 12:00; Stop 08/06/19 at 11:49; Status DC Vancomycin HCl 1.25 gm/Sodium Chloride 250 ml @ 167 mls/hr Q12H IV ; Start 08/05/19 at 12:30; Stop 08/05/19 at 12:01; Status DC Vancomycin HCl (Vancomycin Trough Level) 1 each 1X ONCE MC ; Start 08/07/19 at 00:00; Stop 08/06/19 at 11:48; Status DC Vancomycin HCl 1.25 gm/Sodium Chloride 250 ml @ 167 mls/hr Q12H IV Last administered on 08/06/19at 11:19; Start 08/05/19 at 12:30; Stop 08/06/19 at 11:47; Status DC Enoxaparin Sodium (Lovenox 40mg Syringe) 40 mg Q24H SQ ; Start 08/05/19 at 14:45; Status UNV Lorazepam (Ativan) 1 mg PRN Q8HRS PRN PO ANXIETY / AGITATION Last administered on 08/05/19at 15:15; Start 08/05/19 at 15:15; Stop 08/05/19 at 20:06; Status DC Lactobacillus Rhamnosus (Culturelle) 1 cap BID PO Last administered on 08/06/19at 20:46; Start 08/05/19 at 21:00 Metoprolol Tartrate (Lopressor Vial) 5 mg PRN Q5MIN PRN IVP TACHYCARDIA Last administered on 08/05/19at 17:33; Start 08/05/19 at 17:30 Lorazepam (Ativan) 1 mg PRN Q4HRS PRN PO ANXIETY / AGITATION Last administered on 08/05/19at 20:37; Start 08/05/19 at 20:15 Nicotine (Nicoderm Cq 21mg) 1 patch DAILY TD Last administered on 08/07/19 07:56; Start 08/05/19 at 20:30 Lorazepam (Ativan Inj) 2 mg PRN Q1HR PRN IV For CIWA 8-14 Last administered on 08/06/19at 02:50; Start 08/05/19 at 22:30 Lorazepam (Ativan) 4 mg PRN Q1HR PRN PO For CIWA 8-14; Start 08/06/19 at 02:30 Haloperidol Lactate (Haldol Inj) 5 mg PRN Q4HRS PRN IVP Hallucinatns,Confusn,Delirium Last administered on 08/07/19at 02:29; Start 08/06/19 at 02:30 Diphenhydramine HCl (Benadryl) 25 mg PRN Q15MIN PRN IVP EPS symptoms 2'Haldol admin Last administered on 08/06/19at 02:50; Start 08/06/19 at 02:30 Ziprasidone (Geodon Im) 20 mg 1X ONCE IM Last administered on 08/06/19at 04:31; Start 08/06/19 at 03:30; Stop 08/06/19 at 03:31; Status DC Thiamine HCl 100 mg/Dextrose 51 ml @ 102 mls/hr DAILY IV Last administered on 08/06/19at 08:05; Start 08/06/19 at 03:30; Stop 08/07/19 at 09:52; Status DC Lorazepam (Ativan Inj) 4 mg PRN Q1HR PRN IV For CIWA 15 or greater Last administered on 08/07/19at 07:56; Start 08/06/19 at 03:15 Potassium Chloride/Water 100 ml @ 50 mls/hr 1X ONCE IV Last administered on 5/23/20at 20:38; Start 08/06/19 at 20:15; Stop 08/06/19 at 22:14; Status DC Potassium Chloride/Water 100 ml @ 50 mls/hr 1X ONCE IV Last administered on 08/06/19at 22:39; Start 08/06/19 at 22:15; Stop 08/07/19 at 00:14; Status DC Magnesium Sulfate 50 ml @ 25 mls/hr 1X ONCE IV Last administered on 08/06/19at 20:37; Start 08/06/19 at 20:15; Stop 08/06/19 at 22:14; Status DC Clonidine HCl (Catapres) 0.2 mg Q8HRS PO Last administered on 08/07/19at 07:21; Start 08/06/19 at 22:00 Multivitamins 10 ml/Thiamine HCl 100 mg/Folic Acid 1 mg/Sodium Chloride 1,011.2 ml @ 0 mls/hr DAILY IV Last administered on 08/07/19at 09:03; Start 08/07/19 at 09:00 Vancomycin HCl (Vanco Per Pharmacy) 1 each PRN DAILY PRN MC SEE COMMENTS Last administered on 08/07/19at 08:35; Start 08/07/19 at 08:00 Vancomycin HCl 1 gm/Sodium Chloride 250 ml @ 250 mls/hr Q8H IV Last administered on 08/07/19at 09:03; Start 08/07/19 at 08:00 Vancomycin HCl (Vancomycin Trough Level) 1 each 1X ONCE MC ; Start 08/08/19 at 07:30; Stop 08/08/19 at 07:31 Vitals/I & O Vital Sign - Last 24 Hours 08/06/19 08/06/19 08/06/19 08/06/19 10:57 15:00 20:00 20:25 Temp 97.0 98.0 98.1 97.0 98.0 98.1 Pulse 81 92 120 Resp 18 20 22 B/P (MAP) 134/79 (97) 133/78 (96) 148/97 (114) Pulse Ox 97 97 97 O2 Delivery Room Air Room Air Room Air Room Air 08/06/19 08/06/19 08/07/19 08/07/19 20:46 23:18 03:54 07:08 Temp 97.7 98.1 97.7 97.7 98.1 97.7 Pulse 95 110 98 Resp 18 20 18 B/P (MAP) 148/97 127/87 (100) 140/89 (106) 130/93 (105) Pulse Ox 96 97 99 O2 Delivery Room Air Room Air Room Air 08/07/19 07:21 B/P (MAP) 130/93 Intake and Output 08/06/19 08/06/19 08/07/19 15:00 23:00 07:00 Intake Total 200 ml 240 ml Output Total 200 ml Balance 200 ml 40 ml HOME SMITH MD August 07, 2019 10:38
[2019-08-07 10:54] VITALS: BP 137/86
[2019-08-07 11:00] LABS: BASO # 0.1 x10^3/uL (0.0-0.2); BASO % 1 % (0-3); EOS # 0.1 x10^3/uL (0.0-0.7); EOS % 2 % (0-3); HEMATOCRIT 39.5 % (39.0-53.0); HEMOGLOBIN 13.2 g/dL (13.0-17.5); LYMPH # 1.2 x10^3/uL (1.0-4.8); LYMPH % 17 % (24-48); MEAN CORPUSCULAR HEMOGLOBIN 36 pg (25-35); MEAN CORPUSCULAR HGB CONC 34 g/dL (31-37); MEAN CORPUSCULAR VOLUME 106 fL (79-100); MONO # 1.4 x10^3/uL (0.0-1.1); MONO % 19 % (0-9); NEUT # 4.6 x10^3/uL (1.8-7.7); NEUT % 62 % (31-73); PLATELET COUNT 133 x10^3/uL (140-400); RED BLOOD COUNT 3.73 x10^6/uL (4.30-5.70); RED CELL DISTRIBUTION WIDTH 13.3 % (11.5-14.5); WHITE BLOOD COUNT 7.4 x10^3/uL (4.0-11.0)
[2019-08-07 11:09] LABS: ALBUMIN 3.3 g/dL (3.4-5.0); ALBUMIN/GLOBULIN RATIO 0.8 (1.0-1.7); CALCIUM 8.7 mg/dL (8.5-10.1); CREATININE 0.8 mg/dL (0.7-1.3); GFR 105.5; POTASSIUM 3.9 mmol/L (3.5-5.1); TOTAL BILIRUBIN 0.9 mg/dL (0.2-1.0); TOTAL PROTEIN 7.7 g/dL (6.4-8.2)
[2019-08-07 11:58] LABS: % BANDS 5 % (0-9); % EOS 2 % (0-5); % LYMPHS 14 % (24-48); % MONOS 17 % (0-10); % SEGS 62 % (35-66)
[2019-08-07 12:00] LABS: PLT ESTIMATE DECREASED (ADEQUATE)
--- NOTE | 2019-08-07 12:33 | PDOC2 ---
GI CONSULT Reason For Consult: Elevated transaminases HPI: HPI: 43 y/o male initially admitted with prostrating illness associated with N, V, D. Developed AMS. Clinically seemed septic. Was COVID negative. Seems to be improving. Noted to have abnormal transaminases and we were asked to see. Seems fairly lucid today. Admits to daily alcohol use at home. Denies transfusion, IVDU, known exposure to viral agents, tattoos. No clear FH of liver issues. Denies heartburn, dysphagia, PUD, GB, pancreatic history. Smoker. Apart from current illness, free of chronic diarrhea or constipation. Denies any overt bleeding. No prior scopes. On labs, macrocytosis, thrombocytopenia, modest transaminitis with AST>ALT. AP and bilirubin normal. Ferritin elevated, but is rapid-phase reactant and not to be trusted in this setting. On sonogram, NAFLD. No biliary issues. Question of pancreatitis. PMH: PMH: None. No prior surgery. FH: Family History: No pertinent hx (GIFH negative) Social History: ALCOHOL: other (daily) Drugs: None ROS: GEN: Denies fevers, chills, sweats HEENT: Denies blurred vision, sore throat CV: Denies chest pain RESP: Denies shortness of air, cough GI: Per HPI : Denies hematuria, dysuria ENDO: Denies weight changes NEURO: Denies confusion, dizziness MSK: Denies weakness, joint pain/swelling SKIN: Denies jaundice, pruritus Vitals: Vitals: Vital Signs Date Time Temp Pulse Resp B/P (MAP) Pulse Ox O2 Delivery O2 Flow Rate FiO2 08/07/19 10:54 97.7 117 20 137/86 (103) 96 Room Air 97.7 Labs: Labs: Laboratory Tests Test 08/07/19 04:15 White Blood Count 7.4 x10^3/uL (4.0-11.0) Red Blood Count 3.73 x10^6/uL (4.30-5.70) Hemoglobin 13.2 g/dL (13.0-17.5) Hematocrit 39.5 % (39.0-53.0) Mean Corpuscular Volume 106 fL (79-100) Mean Corpuscular Hemoglobin 36 pg (25-35) Mean Corpuscular Hemoglobin Concent 34 g/dL (31-37) Red Cell Distribution Width 13.3 % (11.5-14.5) Platelet Count 133 x10^3/uL (140-400) Neutrophils (%) (Auto) 62 % (31-73) Lymphocytes (%) (Auto) 17 % (24-48) Monocytes (%) (Auto) 19 % (0-9) Eosinophils (%) (Auto) 2 % (0-3) Basophils (%) (Auto) 1 % (0-3) Neutrophils # (Auto) 4.6 x10^3/uL (1.8-7.7) Lymphocytes # (Auto) 1.2 x10^3/uL (1.0-4.8) Monocytes # (Auto) 1.4 x10^3/uL (0.0-1.1) Eosinophils # (Auto) 0.1 x10^3/uL (0.0-0.7) Basophils # (Auto) 0.1 x10^3/uL (0.0-0.2) Segmented Neutrophils % 62 % (35-66) Band Neutrophils % 5 % (0-9) Lymphocytes % 14 % (24-48) Monocytes % 17 % (0-10) Eosinophils % 2 % (0-5) Platelet Estimate Decreased (ADEQUATE) Macrocytosis Slight Sodium Level 139 mmol/L (136-145) Potassium Level 3.9 mmol/L (3.5-5.1) Chloride Level 102 mmol/L (98-107) Carbon Dioxide Level 19 mmol/L (21-32) Anion Gap 18 (6-14) Blood Urea Nitrogen 8 mg/dL (8-26) Creatinine 0.8 mg/dL (0.7-1.3) Estimated GFR (Cockcroft-Gault) 105.5 BUN/Creatinine Ratio 10 (6-20) Glucose Level 76 mg/dL (70-99) Calcium Level 8.7 mg/dL (8.5-10.1) Total Bilirubin 0.9 mg/dL (0.2-1.0) Aspartate Amino Transf (AST/SGOT) 193 U/L (15-37) Alanine Aminotransferase (ALT/SGPT) 105 U/L (16-63) Alkaline Phosphatase 81 U/L (46-116) Creatine Kinase 3288 U/L (39-308) Total Protein 7.7 g/dL (6.4-8.2) Albumin 3.3 g/dL (3.4-5.0) Albumin/Globulin Ratio 0.8 (1.0-1.7) Allergies: Coded Allergies: No Known Drug Allergies (Unverified , 08/04/19) Medications: Current Medications Medications (Trade) Dose Ordered Sig/Cris Route PRN Reason Start Time Stop Time Status Last Admin Dose Admin Potassium Chloride/Water 100 ml @ 50 mls/hr 1X ONCE IV 08/06/19 20:15 08/06/19 22:14 DC 08/06/19 20:38 Potassium Chloride/Water 100 ml @ 50 mls/hr 1X ONCE IV 08/06/19 22:15 08/07/19 00:14 DC 08/06/19 22:39 Magnesium Sulfate 50 ml @ 25 mls/hr 1X ONCE IV 08/06/19 20:15 08/06/19 22:14 DC 08/06/19 20:37 Clonidine HCl (Catapres) 0.2 mg Q8HRS PO 08/06/19 22:00 08/07/19 07:21 Multivitamins 10 ml/Thiamine HCl 100 mg/Folic Acid 1 mg/Sodium Chloride 1,011.2 ml @ 0 mls/hr DAILY IV 08/07/19 09:00 08/07/19 09:03 Vancomycin HCl (Vanco Per Pharmacy) 1 each PRN DAILY PRN MC SEE COMMENTS 08/07/19 08:00 08/07/19 08:35 Vancomycin HCl 1 gm/Sodium Chloride 250 ml @ 250 mls/hr Q8H IV 08/07/19 08:00 08/07/19 09:03 PE: GEN: NAD HEENT: Atraumatic, PERRLA LUNGS: CTAB HEART: RRR, no murmurs ABD: NABS, S/ND/NT, no masses EXTREMITY: No edema SKIN: No rashes, no jaundice NEURO/PSYCH: A & O 3 A/P: A/P: IMP: History, labs favor alcoholic liver disease. Pancytopenia may be from this; no clear clinical signs of established cirrhosis. REC: Continue banana bag, other withdrawal precautions. Will check iron studies and viral markers for completeness' sake. Curtail drinking. Continue other support. JULIUS TIWARI MD August 07, 2019 12:33
--- NOTE | 2019-08-07 13:57 | PDOC2 ---
NEUROLOGY CONSULT Date of Admission Date of Admission DATE: 08/07/19 TIME: 13:48 Reason for Consult Reason for Consult: Metabolic encephalopathy Referring Physician Referring Physician: Dr. Ayala Source Source: Chart review History of Present Illness History of Present Illness The patient is a 43-year-old male admitted 2 days ago for various symptoms including sweating episodes, headaches, cough, sputum production, feeling feverish, dyspnea, feeling wiped out, nausea, vomiting, loose stools, episodes of intense weakness. He has been found to have positive blood cultures thought to be contaminant, COVID19 negative, fevers, macrocytic anemia with thrombocytopenia, lactic acidosis which resolved, elevated CPK, hypokalemia, transaminitis, hepatomegaly, hepatic steatosis, elevated d-dimer. As it turns out he drinks 2 pints a day of vodka per day. Currently he has received Ativan and Haldol and and is unable to provide me any further history. He is on 1:1 n ursing. Past Medical History GI: GERD Psych: Anxiety, Addictions, Depression Past Surgical History Past Surgical History: No pertinent history Family History Family History: Other (Unobtainable) Social History Social History Unobtainable Current Medications Current Medications Current Medications Sodium Chloride 1,000 ml @ 1,000 mls/hr 1X ONCE IV Last administered on 08/04/19at 18:40; Start 08/04/19 at 18:00; Stop 08/04/19 at 18:59; Status DC Potassium Bicarbonate (Potassium Effervescent Tablet) 40 meq 1X ONCE PO Last administered on 08/04/19at 19:02; Start 08/04/19 at 18:45; Stop 08/04/19 at 18:47; Status DC Sodium Chloride 1,000 ml @ 1,000 mls/hr 1X ONCE IV Last administered on 08/04/19at 20:35; Start 08/04/19 at 19:30; Stop 08/04/19 at 20:29; Status DC Ondansetron HCl (Zofran) 4 mg PRN Q8HRS PRN IV NAUSEA/VOMITING; Start 08/04/19 at 19:30; Stop 08/04/19 at 20:26; Status DC Acetaminophen (Tylenol) 650 mg PRN Q4HRS PRN PO FEVER > 100.3'F; Start 08/04/19 at 19:30; Stop 08/04/19 at 20:26; Status DC Potassium Chloride/Sodium Chloride 1,000 ml @ 75 mls/hr 1X ONCE IV Last administered on 08/04/19at 21:56; Start 08/04/19 at 21:00; Stop 08/05/19 at 10:19; Status DC Sodium Chloride 1,000 ml @ 1,000 mls/hr 1X ONCE IV Last administered on 08/04/19at 22:01; Start 08/04/19 at 19:30; Stop 08/04/19 at 20:29; Status DC Ceftriaxone Sodium (Rocephin) 1 gm 1X ONCE IVP Last administered on 08/04/19at 20:34; Start 08/04/19 at 19:30; Stop 08/04/19 at 19:31; Status DC Azithromycin 250 ml @ 250 mls/hr 1X ONCE IV Last administered on 08/04/19at 19:30; Start 08/04/19 at 19:30; Stop 08/04/19 at 20:29; Status DC Cefepime HCl (Maxipime) 1 gm Q8HRS IVP ; Start 08/04/19 at 22:00; Stop 08/04/19 at 20:18; Status DC Sodium Chloride 1,000 ml @ 2,340 mls/hr Q26M IV ; Start 08/04/19 at 20:30; Stop 08/04/19 at 21:30; Status DC Sodium Chloride 500 ml @ 1,000 mls/hr PRN Q30MIN PRN IV SEE COMMENTS; Start 08/04/19 at 21:30 Cefepime HCl (Maxipime) 2 gm Q8HRS IVP Last administered on 08/06/19at 13:58; Start 08/04/19 at 22:00; Stop 08/06/19 at 15:03; Status DC Hydralazine HCl (Apresoline Inj) 10 mg PRN Q4HRS PRN IVP ELEVATED BP, SEE COMMENTS Last administered on 08/05/19at 13:17; Start 08/04/19 at 20:30 Sodium Chloride (Normal Saline Flush) 3 ml QSHIFT PRN IV AFTER MEDS AND BLOOD DRAWS; Start 08/04/19 at 20:30 Sodium Chloride 1,000 ml @ 100 mls/hr Q10H IV Last administered on 08/07/19at 06:36; Start 08/05/19 at 11:00 Ondansetron HCl (Zofran) 4 mg PRN Q4HRS PRN IV NAUSEA/VOMITING; Start 08/04/19 at 20:30 Acetaminophen (Tylenol) 650 mg PRN Q4HRS PRN PO TEMP OVER 100.4F OR MILD PAIN Last administered on 08/05/19at 11:41; Start 08/04/19 at 20:30 Al Hydroxide/Mg Hydroxide (Mylanta Plus Xs) 30 ml PRN DAILY PRN PO HEARTBURN / GAS; Start 08/04/19 at 20:30 Clonidine HCl (Catapres) 0.1 mg PRN Q6HRS PRN PO SBP>160 OR DBP>90 Last administered on 08/05/19at 11:41; Start 08/04/19 at 20:30 Sodium Monofluorophosphate (Fleet Adult) 133 ml PRN DAILY PRN [place] CONSTIPATION; Start 08/04/19 at 20:30 Docusate Sodium (Colace) 100 mg PRN BID PRN PO HARD STOOLS; Start 08/04/19 at 20:30 Albuterol Sulfate (Ventolin Neb Soln) 2.5 mg PRN Q4HRS PRN NEB SHORTNESS OF BREATH; Start 08/04/19 at 20:30 Guaifenesin (Robitussin) 200 mg PRN Q4HRS PRN PO COUGH; Start 08/04/19 at 20:30 Enoxaparin Sodium (Lovenox 40mg Syringe) 40 mg Q24H SQ Last administered on 08/06/19at 20:37; Start 08/04/19 at 21:00 Vancomycin HCl 250 ml @ 250 mls/hr 1X ONCE IV Last administered on 08/05/19at 00:57; Start 08/04/19 at 21:00; Stop 08/04/19 at 21:59; Status DC Potassium Bicarbonate (Potassium Effervescent Tablet) 40 meq 1X ONCE PO Last administered on 08/05/19at 09:15; Start 08/05/19 at 07:30; Stop 08/05/19 at 07:31; Status DC Potassium Bicarbonate (Potassium Effervescent Tablet) 20 meq 1X ONCE PO Last administered on 08/05/19at 11:15; Start 08/05/19 at 09:30; Stop 08/05/19 at 09:31; Status DC Vancomycin HCl 1 gm/Sodium Chloride 250 ml @ 250 mls/hr Q12H IV ; Start 08/05/19 at 12:00; Status UNV Vancomycin HCl (Vanco Per Pharmacy) 1 each PRN DAILY PRN MC SEE COMMENTS Last administered on 08/06/19at 11:32; Start 08/05/19 at 12:00; Stop 08/06/19 at 11:49; Status DC Vancomycin HCl 1.25 gm/Sodium Chloride 250 ml @ 167 mls/hr Q12H IV ; Start 08/05/19 at 12:30; Stop 08/05/19 at 12:01; Status DC Vancomycin HCl (Vancomycin Trough Level) 1 each 1X ONCE MC ; Start 08/07/19 at 00:00; Stop 08/06/19 at 11:48; Status DC Vancomycin HCl 1.25 gm/Sodium Chloride 250 ml @ 167 mls/hr Q12H IV Last administered on 08/06/19at 11:19; Start 08/05/19 at 12:30; Stop 08/06/19 at 11:47; Status DC Enoxaparin Sodium (Lovenox 40mg Syringe) 40 mg Q24H SQ ; Start 08/05/19 at 14:45; Status UNV Lorazepam (Ativan) 1 mg PRN Q8HRS PRN PO ANXIETY / AGITATION Last administered on 08/05/19at 15:15; Start 08/05/19 at 15:15; Stop 08/05/19 at 20:06; Status DC Lactobacillus Rhamnosus (Culturelle) 1 cap BID PO Last administered on 08/06/19at 20:46; Start 08/05/19 at 21:00 Metoprolol Tartrate (Lopressor Vial) 5 mg PRN Q5MIN PRN IVP TACHYCARDIA Last administered on 08/05/19at 17:33; Start 08/05/19 at 17:30 Lorazepam (Ativan) 1 mg PRN Q4HRS PRN PO ANXIETY / AGITATION Last administered on 08/05/19at 20:37; Start 08/05/19 at 20:15 Nicotine (Nicoderm Cq 21mg) 1 patch DAILY TD Last administered on 08/07/19at 07:56; Start 08/05/19 at 20:30 Lorazepam (Ativan Inj) 2 mg PRN Q1HR PRN IV For CIWA 8-14 Last administered on 08/06/19at 02:50; Start 08/05/19 at 22:30 Lorazepam (Ativan) 4 mg PRN Q1HR PRN PO For CIWA 8-14; Start 08/06/19 at 02:30 Haloperidol Lactate (Haldol Inj) 5 mg PRN Q4HRS PRN IVP Hallucinatns,Confusn,Delirium Last administered on 08/07/19at 10:39; Start 08/06/19 at 02:30 Diphenhydramine HCl (Benadryl) 25 mg PRN Q15MIN PRN IVP EPS symptoms 2'Haldol admin Last administered on 08/06/19at 02:50; Start 08/06/19 at 02:30 Ziprasidone (Geodon Im) 20 mg 1X ONCE IM Last administered on 08/06/19 04:31; Start 08/06/19 at 03:30; Stop 08/06/19 at 03:31; Status DC Thiamine HCl 100 mg/Dextrose 51 ml @ 102 mls/hr DAILY IV Last administered on 08/06/19at 08:05; Start 08/06/19 at 03:30; Stop 08/07/19 at 09:52; Status DC Lorazepam (Ativan Inj) 4 mg PRN Q1HR PRN IV For CIWA 15 or greater Last administered on 08/07/19at 07:56; Start 08/06/19 at 03:15 Potassium Chloride/Water 100 ml @ 50 mls/hr 1X ONCE IV Last administered on 08/06/19at 20:38; Start 08/06/19 at 20:15; Stop 08/06/19 at 22:14; Status DC Potassium Chloride/Water 100 ml @ 50 mls/hr 1X ONCE IV Last administered on 08/06/19at 22:39; Start 08/06/19 at 22:15; Stop 08/07/19 at 00:14; Status DC Magnesium Sulfate 50 ml @ 25 mls/hr 1X ONCE IV Last administered on 08/06/19at 20:37; Start 08/06/19 at 20:15; Stop 08/06/19 at 22:14; Status DC Clonidine HCl (Catapres) 0.2 mg Q8HRS PO Last administered on 08/07/19at 07:21; Start 08/06/19 at 22:00 Multivitamins 10 ml/Thiamine HCl 100 mg/Folic Acid 1 mg/Sodium Chloride 1,011.2 ml @ 0 mls/hr DAILY IV Last administered on 08/07/19at 09:03; Start 08/07/19 at 09:00 Vancomycin HCl (Vanco Per Pharmacy) 1 each PRN DAILY PRN MC SEE COMMENTS Last administered on 08/07/19at 08:35; Start 08/07/19 at 08:00 Vancomycin HCl 1 gm/Sodium Chloride 250 ml @ 250 mls/hr Q8H IV Last administered on 08/07/19at 09:03; Start 08/07/19 at 08:00 Vancomycin HCl (Vancomycin Trough Level) 1 each 1X ONCE MC ; Start 08/08/19 at 07:30; Stop 08/08/19 at 07:31 Allergies Allergies: Coded Allergies: No Known Drug Allergies (Unverified , 08/04/19) ROS Review of System Unobtainable Physical Exam Physical Examination General: Well-developed, well-nourished white male in no acute distress HEENT: Normocephalic andatraumatic. Tympanic membranes clear. Neck: Supple without bruit, no meningismus Musculoskeletal: Stability:see neurologic. Gait exam:see neurologic. Tone:see neurologic.Strength:see neurologic. Neurological: Mental Status:orientation, memory, attention span/concentration, language, fund of knowledge: Sedated, barely stirs to loud voice, I did not want to awaken him as the one-to-one nurse says he just got to sleep after being agitated. Cranial Nerves:Pupils equal and reactive to light, extraocular movements areintact. There is no facial asymmetry.All other cranial related problems are negative except as mentioned before.Reflexes:1+ and symmetric with flexor plantar responses. Motor:Moves slightly, spontaneously, all extremities. Coordination and gait:Not cooperative. Sensory:Not cooperative. Vitals VITALS Vital Signs Date Time Temp Pulse Resp B/P (MAP) Pulse Ox O2 Delivery O2 Flow Rate FiO2 08/07/19 10:54 97.7 117 20 137/86 (103) 96 Room Air 97.7 Labs Labs Laboratory Tests Test 08/05/19 15:05 08/06/19 04:30 08/07/19 04:15 08/07/19 11:30 Potassium Level 3.2 mmol/L (3.5-5.1) 3.9 mmol/L (3.5-5.1) Creatinine 0.9 mg/dL (0.7-1.3) 0.8 mg/dL (0.7-1.3) Estimated GFR (Cockcroft-Gault) 92.1 105.5 Gamma Glutamyl Transpeptidase 494 U/L (10-85) White Blood Count 7.4 x10^3/uL (4.0-11.0) Red Blood Count 3.73 x10^6/uL (4.30-5.70) Hemoglobin 13.2 g/dL (13.0-17.5) Hematocrit 39.5 % (39.0-53.0) Mean Corpuscular Volume 106 fL (79-100) Mean Corpuscular Hemoglobin 36 pg (25-35) Mean Corpuscular Hemoglobin Concent 34 g/dL (31-37) Red Cell Distribution Width 13.3 % (11.5-14.5) Platelet Count 133 x10^3/uL (140-400) Neutrophils (%) (Auto) 62 % (31-73) Lymphocytes (%) (Auto) 17 % (24-48) Monocytes (%) (Auto) 19 % (0-9) Eosinophils (%) (Auto) 2 % (0-3) Basophils (%) (Auto) 1 % (0-3) Neutrophils # (Auto) 4.6 x10^3/uL (1.8-7.7) Lymphocytes # (Auto) 1.2 x10^3/uL (1.0-4.8) Monocytes # (Auto) 1.4 x10^3/uL (0.0-1.1) Eosinophils # (Auto) 0.1 x10^3/uL (0.0-0.7) Basophils # (Auto) 0.1 x10^3/uL (0.0-0.2) Segmented Neutrophils % 62 % (35-66) Band Neutrophils % 5 % (0-9) Lymphocytes % 14 % (24-48) Monocytes % 17 % (0-10) Eosinophils % 2 % (0-5) Platelet Estimate Decreased (ADEQUATE) Macrocytosis Slight Sodium Level 139 mmol/L (136-145) Chloride Level 102 mmol/L (98-107) Carbon Dioxide Level 19 mmol/L (21-32) Anion Gap 18 (6-14) Blood Urea Nitrogen 8 mg/dL (8-26) BUN/Creatinine Ratio 10 (6-20) Glucose Level 76 mg/dL (70-99) Calcium Level 8.7 mg/dL (8.5-10.1) Total Bilirubin 0.9 mg/dL (0.2-1.0) Aspartate Amino Transf (AST/SGOT) 193 U/L (15-37) Alanine Aminotransferase (ALT/SGPT) 105 U/L (16-63) Alkaline Phosphatase 81 U/L (46-116) Creatine Kinase 3288 U/L (39-308) Total Protein 7.7 g/dL (6.4-8.2) Albumin 3.3 g/dL (3.4-5.0) Albumin/Globulin Ratio 0.8 (1.0-1.7) Fibrinogen 702 mg/dL (200-440) Iron Level 53 ug/dL (65-175) Total Iron Binding Capacity 200 ug/dL (250-450) Iron Saturation 27 % (15-34) Test 08/07/19 12:35 Lactic Acid Level 0.8 mmol/L (0.4-2.0) Laboratory Tests Test 08/07/19 04:15 08/07/19 11:30 08/07/19 12:35 White Blood Count 7.4 x10^3/uL (4.0-11.0) Red Blood Count 3.73 x10^6/uL (4.30-5.70) Hemoglobin 13.2 g/dL (13.0-17.5) Hematocrit 39.5 % (39.0-53.0) Mean Corpuscular Volume 106 fL (79-100) Mean Corpuscular Hemoglobin 36 pg (25-35) Mean Corpuscular Hemoglobin Concent 34 g/dL (31-37) Red Cell Distribution Width 13.3 % (11.5-14.5) Platelet Count 133 x10^3/uL (140-400) Neutrophils (%) (Auto) 62 % (31-73) Lymphocytes (%) (Auto) 17 % (24-48) Monocytes (%) (Auto) 19 % (0-9) Eosinophils (%) (Auto) 2 % (0-3) Basophils (%) (Auto) 1 % (0-3) Neutrophils # (Auto) 4.6 x10^3/uL (1.8-7.7) Lymphocytes # (Auto) 1.2 x10^3/uL (1.0-4.8) Monocytes # (Auto) 1.4 x10^3/uL (0.0-1.1) Eosinophils # (Auto) 0.1 x10^3/uL (0.0-0.7) Basophils # (Auto) 0.1 x10^3/uL (0.0-0.2) Segmented Neutrophils % 62 % (35-66) Band Neutrophils % 5 % (0-9) Lymphocytes % 14 % (24-48) Monocytes % 17 % (0-10) Eosinophils % 2 % (0-5) Platelet Estimate Decreased (ADEQUATE) Macrocytosis Slight Sodium Level 139 mmol/L (136-145) Potassium Level 3.9 mmol/L (3.5-5.1) Chloride Level 102 mmol/L (98-107) Carbon Dioxide Level 19 mmol/L (21-32) Anion Gap 18 (6-14) Blood Urea Nitrogen 8 mg/dL (8-26) Creatinine 0.8 mg/dL (0.7-1.3) Estimated GFR (Cockcroft-Gault) 105.5 BUN/Creatinine Ratio 10 (6-20) Glucose Level 76 mg/dL (70-99) Calcium Level 8.7 mg/dL (8.5-10.1) Total Bilirubin 0.9 mg/dL (0.2-1.0) Aspartate Amino Transf (AST/SGOT) 193 U/L (15-37) Alanine Aminotransferase (ALT/SGPT) 105 U/L (16-63) Alkaline Phosphatase 81 U/L (46-116) Creatine Kinase 3288 U/L (39-308) Total Protein 7.7 g/dL (6.4-8.2) Albumin 3.3 g/dL (3.4-5.0) Albumin/Globulin Ratio 0.8 (1.0-1.7) Fibrinogen 702 mg/dL (200-440) Iron Level 53 ug/dL (65-175) Total Iron Binding Capacity 200 ug/dL (250-450) Iron Saturation 27 % (15-34) Lactic Acid Level 0.8 mmol/L (0.4-2.0) Images Images CT scan of the head without contrast 08/04/2019 Clinical History: Altered mental status. Technique: Unenhanced, contiguous, 5 mm axial sections were obtained through the head. One or more of the following individualized dose reduction techniques were utilized for this study: 1. Automated exposure control. 2. Adjustment of the mA and/or kV according to patient size. 3. Use of iterative reconstruction technique. Findings: There is generalized parenchymal atrophy. No acute parenchymal abnormality is seen. No extra-axial fluid collection is noted. No skull fracture is seen. Impression: No acute intracranial abnormality is seen. Assessment/Plan Assessment/Plan Impression: Alcoholism, hepatic encephalopathy, also has other medical issues as described Rhabdomyolysis, continues to have elevated CPK level Medical issues: fevers, macrocytic anemia with thrombocytopenia, lactic acidosis which resolved, elevated CPK, hypokalemia, transaminitis, hepatomegaly, hepatic steatosis, elevated d-dimer Recommendations: Reasonable to recheck ammonia level Hold on electroencephalogram as it would most likely simply show sedative artifact and my suspicion for ongoing seizures is very low. As you are doing, alcohol withdrawal protocol including sedatives and thiamine. Thank you for letting me help with the patient's care. DONAVON JENNINGS MD August 07, 2019 13:57
[2019-08-07 15:05] VITALS: BP 147/97
[2019-08-07 19:00] VITALS: BP 141/99
[2019-08-07] MEDS: ENOXAPARIN 40 MG/0.4 ML SYRINGE. SQ SCH (21:00)
[2019-08-07 23:30] VITALS: BP 141/93
[2019-08-08] MEDS: VANCOMYCIN 1 GM in IV NORMAL SALINE 250ML 250 ML IV SCH (00:36)
[2019-08-08 02:35] VITALS: BP 140/86
[2019-08-08] MEDS: IV NORMAL SALINE 1000ML BAG 1,000 ML IV SCH ×3 (03:49→19:00)
[2019-08-08] MEDS: cloNIDine HCL 0.2 MG TABLET PO SCH ×3 (06:00→20:02)
[2019-08-08 07:00] VITALS: BP 146/92
[2019-08-08 07:25] LABS: BASO # 0.1 x10^3/uL (0.0-0.2); BASO % 1 % (0-3); EOS # 0.4 x10^3/uL (0.0-0.7); EOS % 7 % (0-3); HEMATOCRIT 37.1 % (39.0-53.0); HEMOGLOBIN 12.7 g/dL (13.0-17.5); LYMPH % 19 % (24-48); MEAN CORPUSCULAR HEMOGLOBIN 36 pg (25-35); MEAN CORPUSCULAR HGB CONC 34 g/dL (31-37); MEAN CORPUSCULAR VOLUME 103 fL (79-100); MONO # 1.1 x10^3/uL (0.0-1.1); MONO % 19 % (0-9); NEUT % 54 % (31-73); PLATELET COUNT 152 x10^3/uL (140-400); RED BLOOD COUNT 3.59 x10^6/uL (4.30-5.70); RED CELL DISTRIBUTION WIDTH 12.8 % (11.5-14.5); WHITE BLOOD COUNT 5.6 x10^3/uL (4.0-11.0)
[2019-08-08 07:34] LABS: VANC TR 7.7 mcg/mL (10.0-20.0)
[2019-08-08 07:43] LABS: ALBUMIN 2.7 g/dL (3.4-5.0); ALBUMIN/GLOBULIN RATIO 0.7 (1.0-1.7); CREATININE 0.8 mg/dL (0.7-1.3); GFR 105.5; POTASSIUM 3.2 mmol/L (3.5-5.1); TOTAL BILIRUBIN 0.5 mg/dL (0.2-1.0); TOTAL PROTEIN 6.7 g/dL (6.4-8.2)
--- NOTE | 2019-08-08 08:21 | PDOC ---
Infectious Disease Note Subjective: Subjective 1:1 observation + confusion and hallucination No fever, vomiting or diarrhea reported Vital Signs: Vital Signs Vital Signs Date Time Temp Pulse Resp B/P (MAP) Pulse Ox O2 Delivery O2 Flow Rate FiO2 08/08/19 07:00 97.9 96 18 146/92 (110) 98 Room Air 97.9 Physical Exam: PHYSICAL EXAM GENERAL: Resting quietly, thinks he is at home, known current year LUNGS: Clear, nonlabored CV: S1 S2 ABD: Nondistended EXT: No edema + confusion and hallucination Medications: Inpatient Meds: Current Medications Medications (Trade) Dose Ordered Sig/Cris Start Time Stop Time Status Last Admin Dose Admin Acetaminophen (Tylenol) 650 mg PRN Q4HRS PRN 08/04/19 20:30 08/05/19 11:41 650 MG Al Hydroxide/Mg Hydroxide (Mylanta Plus Xs) 30 ml PRN DAILY PRN 08/04/19 20:30 Albuterol Sulfate (Ventolin Neb Soln) 2.5 mg PRN Q4HRS PRN 08/04/19 20:30 Azithromycin 250 ml @ 250 mls/hr 1X ONCE 08/04/19 19:30 08/04/19 20:29 DC 08/04/19 19:30 250 MLS/HR Cefepime HCl (Maxipime) 2 gm Q8HRS 08/04/19 22:00 08/06/19 15:03 DC 08/06/19 13:58 2 GM Ceftriaxone Sodium (Rocephin) 1 gm 1X ONCE 08/04/19 19:30 08/04/19 19:31 DC 08/04/19 20:34 1 GM Clonidine HCl (Catapres) 0.2 mg Q8HRS 08/06/19 22:00 08/07/19 14:56 0.2 MG Diphenhydramine HCl (Benadryl) 25 mg PRN Q15MIN PRN 08/06/19 02:30 08/06/19 02:50 25 MG Docusate Sodium (Colace) 100 mg PRN BID PRN 08/04/19 20:30 Enoxaparin Sodium (Lovenox 40mg Syringe) 40 mg Q24H 08/05/19 14:45 UNV Guaifenesin (Robitussin) 200 mg PRN Q4HRS PRN 08/04/19 20:30 Haloperidol Lactate (Haldol Inj) 5 mg PRN Q4HRS PRN 08/06/19 02:30 08/07/19 10:39 5 MG Hydralazine HCl (Apresoline Inj) 10 mg PRN Q4HRS PRN 08/04/19 20:30 08/05/19 13:17 10 MG Lactobacillus Rhamnosus (Culturelle) 1 cap BID 08/05/19 21:00 08/06/19 20:46 1 CAP Lorazepam (Ativan Inj) 4 mg PRN Q1HR PRN 08/06/19 03:15 08/07/19 16:23 4 MG Lorazepam (Ativan) 4 mg PRN Q1HR PRN 08/06/19 02:30 Magnesium Sulfate 50 ml @ 25 mls/hr 1X ONCE 08/06/19 20:15 08/06/19 22:14 DC 08/06/19 20:37 25 MLS/HR Metoprolol Tartrate (Lopressor Vial) 5 mg PRN Q5MIN PRN 08/05/19 17:30 08/05/19 17:33 5 MG Multivitamins 10 ml/Thiamine HCl 100 mg/Folic Acid 1 mg/Sodium Chloride 1,011.2 ml @ 0 mls/hr DAILY 08/07/19 09:00 08/07/19 09:03 100 MLS/HR Nicotine (Nicoderm Cq 21mg) 1 patch DAILY 08/05/19 20:30 08/07/19 07:56 1 PATCH Ondansetron HCl (Zofran) 4 mg PRN Q4HRS PRN 08/04/19 20:30 Potassium Bicarbonate (Potassium Effervescent Tablet) 20 meq 1X ONCE 08/05/19 09:30 08/05/19 09:31 DC 08/05/19 11:15 20 MEQ Potassium Chloride/Sodium Chloride 1,000 ml @ 75 mls/hr 1X ONCE 08/04/19 21:00 08/05/19 10:19 DC 08/04/19 21:56 75 MLS/HR Potassium Chloride/Water 100 ml @ 50 mls/hr 1X ONCE 08/06/19 22:15 08/07/19 00:14 DC 08/06/19 22:39 50 MLS/HR Sodium Monofluorophosphate (Fleet Adult) 133 ml PRN DAILY PRN 08/04/19 20:30 Sodium Chloride 1,000 ml @ 100 mls/hr Q10H 08/05/19 11:00 08/08/19 03:49 100 MLS/HR Sodium Chloride (Normal Saline Flush) 3 ml QSHIFT PRN 08/04/19 20:30 Thiamine HCl 100 mg/Dextrose 51 ml @ 102 mls/hr DAILY 08/06/19 03:30 08/07/19 09:52 DC 08/06/19 08:05 102 MLS/HR Vancomycin HCl (Vanco Per Pharmacy) 1 each PRN DAILY PRN 08/07/19 08:00 08/07/19 08:35 1 EACH Vancomycin HCl (Vancomycin Trough Level) 1 each 1X ONCE 08/08/19 07:30 08/08/19 07:31 DC Vancomycin HCl 1.25 gm/Sodium Chloride 250 ml @ 167 mls/hr Q12H 08/05/19 12:30 08/06/19 11:47 DC 08/06/19 11:19 167 MLS/HR Vancomycin HCl 1 gm/Sodium Chloride 250 ml @ 250 mls/hr Q8H 08/07/19 08:00 08/08/19 00:36 250 MLS/HR Ziprasidone (Geodon Im) 20 mg 1X ONCE 08/06/19 03:30 08/06/19 03:31 DC 08/06/19 04:31 20 MG Labs: Lab Laboratory Tests Test 08/07/19 11:30 08/07/19 12:35 08/08/19 07:14 Erythrocyte Sedimentation Rate 57 (0-15) Fibrinogen 702 mg/dL (200-440) Iron Level 53 ug/dL (65-175) Total Iron Binding Capacity 200 ug/dL (250-450) Iron Saturation 27 % (15-34) Lactic Acid Level 0.8 mmol/L (0.4-2.0) White Blood Count 5.6 x10^3/uL (4.0-11.0) Red Blood Count 3.59 x10^6/uL (4.30-5.70) Hemoglobin 12.7 g/dL (13.0-17.5) Hematocrit 37.1 % (39.0-53.0) Mean Corpuscular Volume 103 fL (79-100) Mean Corpuscular Hemoglobin 36 pg (25-35) Mean Corpuscular Hemoglobin Concent 34 g/dL (31-37) Red Cell Distribution Width 12.8 % (11.5-14.5) Platelet Count 152 x10^3/uL (140-400) Neutrophils (%) (Auto) 54 % (31-73) Lymphocytes (%) (Auto) 19 % (24-48) Monocytes (%) (Auto) 19 % (0-9) Eosinophils (%) (Auto) 7 % (0-3) Basophils (%) (Auto) 1 % (0-3) Neutrophils # (Auto) 3.0 x10^3/uL (1.8-7.7) Lymphocytes # (Auto) 1.0 x10^3/uL (1.0-4.8) Monocytes # (Auto) 1.1 x10^3/uL (0.0-1.1) Eosinophils # (Auto) 0.4 x10^3/uL (0.0-0.7) Basophils # (Auto) 0.1 x10^3/uL (0.0-0.2) Sodium Level 139 mmol/L (136-145) Potassium Level 3.2 mmol/L (3.5-5.1) Chloride Level 104 mmol/L (98-107) Carbon Dioxide Level 24 mmol/L (21-32) Anion Gap 11 (6-14) Blood Urea Nitrogen 12 mg/dL (8-26) Creatinine 0.8 mg/dL (0.7-1.3) Estimated GFR (Cockcroft-Gault) 105.5 BUN/Creatinine Ratio 15 (6-20) Glucose Level 106 mg/dL (70-99) Calcium Level 8.0 mg/dL (8.5-10.1) Total Bilirubin 0.5 mg/dL (0.2-1.0) Aspartate Amino Transf (AST/SGOT) 97 U/L (15-37) Alanine Aminotransferase (ALT/SGPT) 80 U/L (16-63) Alkaline Phosphatase 79 U/L (46-116) Ammonia 41 mcmol/L (11-34) Creatine Kinase 1660 U/L (39-308) Total Protein 6.7 g/dL (6.4-8.2) Albumin 2.7 g/dL (3.4-5.0) Albumin/Globulin Ratio 0.7 (1.0-1.7) Vancomycin Level Trough 7.7 mcg/mL (10.0-20.0) Vancomycin Last Dose Date 08/08/19 Vancomycin Last Dose Time 0000 Objective: Assessment: Encephalopathy fluctuating Paranoia History of nausea and vomiting improved Diarrhea present on admission. C. diff & Giardia negative Abnormal liver function test; abnormal ultrasound report, alcoholic liver disease Anemia and thrombocytopenia Lactic acidosis, now resolved. Staph hominis bacteremia 1/4 bottles, likely contaminant from 08/03. Now reported 2 of 4 bottles. Rhabdomyolysis. Hypokalemia. Plan: Plan of Care DC vancomycin COVID-19 neg, 08/03 Monitor labs and cultures Maintain aspiration precautions Undergoing treatment for alcohol withdrawal Supportive care. D/w nursing ZAK BREEN MD August 08, 2019 08:21
[2019-08-08] MEDS ORDERED: VANCOMYCIN 1.5 GM in IV NORMAL SALINE 500ML BAG 500 ML IV SCH (09:00)
[2019-08-08] MEDS: MULTIVIT INFUSN,ADULT 4,VIT K 10 ML, THIAMINE INJ 100 MG, FOLIC ACID INJ 1 MG in IV NOR... IV SCH (09:38)
[2019-08-08] MEDS: NICOTINE 21MG PATCH. TD SCH (09:39)
[2019-08-08] MEDS: LACTOBACILLUS RHAMNOSUS GG 1 CAPSULE. PO SCH ×2 (09:39→20:01)
--- NOTE | 2019-08-08 10:41 | PDOC ---
PROGRESS NOTES Chief Complaint Chief Complaint IMPRESSION Altered mental status hx severe alcohol abuse ACUTE METABOLIC ENCEPHALOPATHY Positive blood culture? contaminent Febrile illness etiology undetermined his COVID 19 is negative. Blood culture 1/4 bottles is positive for Gram-positive cocci in clusters.SECOND BOTTLE OF THIS SET IS NOW POSITIVE, ALSO WITh GRAM POSITIVE COCCI IN CLUSTERS. Nausea, vomiting, diarrhea. seems to have subsided, will continue to monitor Macrocytic anemia WITH THROMBOCYTOPENIA elevated lactic acid which is resolved, porbably secondary to emesis and poor oral intake with moderate to severe dehydration Elevated CPK secondary to dehydration and retching effort Hypokalemia secondary to emesis and diarrhea transaminitis sec to ETOH likely Hepatomegaly and hepatic steatosis. ELEVATED D-DIMER 08/06 drinks 2 pints a day of vodka, denies tick bites, or exposure to deers, rabbits, has not hunted since he was a child Plan: replace electrolytes, banana bag Supportive measures Follow results of blood cultures cont iv vancomycin IV fluid resuscitation 1:1 nursing DVT prophylaxis with Lovenox GI CONSULT NEUROLOGY CONSULT CARDIOLOGY CONSULT ECHO CPK B12 38 min pt exam, chart review, > 50% of time spent with exam, chart review, pt care coordination History of Present Illness History of Present Illness Mr Raymond is a 43 yo M w/ no PMHx comes to the ED with multiple complaints. He had not been feeling well for the last 3 weeks with nausea, vomiting, diarrhea, cough, shortness of breath, some intermittent fever and chills. He has been quarantined at home for about 3 weeks and has been wondering that he may have caught up something at work. He feels weak. He was found to have a fever of 99.6. White count of 10, hemoglobin of 14.2, hematocrit 42, platelets of 104. Potassium of 2.9, sodium of 137, creatinine of 1.1. Lactate of 14.5, ferritin 1689, bilirubin 0.8, AST 186, ALT 128, alkaline phosphatase 106. CK 1184, albumin 3.5, lipase 359. Procalcitonin 0.23. Ammonia 32. The patient got a dose of azithromycin, was started on cefepime. ID consult has been requested for antibiotic management. Neurology for confusion. Blood culture 1/4 bottles is positive for Gram-positive cocci in clusters. The patient underwent a head CT for altered mental status, which did not show any acute intracranial process. Chest x-ray showed no acute cardiopulmonary process. Abdominal imaging concerning for chronic pancreatitis and liver disease. 08/06: No acute events reported overnight, case discussed with nursing staff patient in no acute distress no complaints during my visit. Bowel movement x2 this morning. More alert today. He is shaking, weak. He tells me in the same sentence he was drinking 2 pints per day of hard alcohol, then tells me it has been 2 weeks, then notes it has been a month since he has had a drink. He notes his appetite has improved. Afebrile. Vitals Vitals Vital Signs Date Time Temp Pulse Resp B/P (MAP) Pulse Ox O2 Delivery O2 Flow Rate FiO2 08/08/19 07:00 97.9 96 18 146/92 (110) 98 Room Air 97.9 Physical Exam Physical Exam GENERAL: Resting quietly, thinks he is at home, known current year LUNGS: Clear, nonlabored CV: S1 S2 ABD: Nondistended EXT: No edema + confusion and hallucination General: Alert, Cooperative, mild distress, Other (mild-mod tremor , not oriented to place) Heart: Regular rate, Normal S1 Lungs: Clear Abdomen: Normal bowel sounds, Soft Extremities: No cyanosis, No edema, No tenderness/swelling Skin: No rashes Labs LABS Laboratory Tests Test 08/07/19 11:30 08/07/19 12:35 08/08/19 07:14 Erythrocyte Sedimentation Rate 57 (0-15) Fibrinogen 702 mg/dL (200-440) Iron Level 53 ug/dL (65-175) Total Iron Binding Capacity 200 ug/dL (250-450) Iron Saturation 27 % (15-34) Lactic Acid Level 0.8 mmol/L (0.4-2.0) White Blood Count 5.6 x10^3/uL (4.0-11.0) Red Blood Count 3.59 x10^6/uL (4.30-5.70) Hemoglobin 12.7 g/dL (13.0-17.5) Hematocrit 37.1 % (39.0-53.0) Mean Corpuscular Volume 103 fL (79-100) Mean Corpuscular Hemoglobin 36 pg (25-35) Mean Corpuscular Hemoglobin Concent 34 g/dL (31-37) Red Cell Distribution Width 12.8 % (11.5-14.5) Platelet Count 152 x10^3/uL (140-400) Neutrophils (%) (Auto) 54 % (31-73) Lymphocytes (%) (Auto) 19 % (24-48) Monocytes (%) (Auto) 19 % (0-9) Eosinophils (%) (Auto) 7 % (0-3) Basophils (%) (Auto) 1 % (0-3) Neutrophils # (Auto) 3.0 x10^3/uL (1.8-7.7) Lymphocytes # (Auto) 1.0 x10^3/uL (1.0-4.8) Monocytes # (Auto) 1.1 x10^3/uL (0.0-1.1) Eosinophils # (Auto) 0.4 x10^3/uL (0.0-0.7) Basophils # (Auto) 0.1 x10^3/uL (0.0-0.2) Sodium Level 139 mmol/L (136-145) Potassium Level 3.2 mmol/L (3.5-5.1) Chloride Level 104 mmol/L (98-107) Carbon Dioxide Level 24 mmol/L (21-32) Anion Gap 11 (6-14) Blood Urea Nitrogen 12 mg/dL (8-26) Creatinine 0.8 mg/dL (0.7-1.3) Estimated GFR (Cockcroft-Gault) 105.5 BUN/Creatinine Ratio 15 (6-20) Glucose Level 106 mg/dL (70-99) Calcium Level 8.0 mg/dL (8.5-10.1) Total Bilirubin 0.5 mg/dL (0.2-1.0) Aspartate Amino Transf (AST/SGOT) 97 U/L (15-37) Alanine Aminotransferase (ALT/SGPT) 80 U/L (16-63) Alkaline Phosphatase 79 U/L (46-116) Ammonia 41 mcmol/L (11-34) Creatine Kinase 1660 U/L (39-308) Total Protein 6.7 g/dL (6.4-8.2) Albumin 2.7 g/dL (3.4-5.0) Albumin/Globulin Ratio 0.7 (1.0-1.7) Vancomycin Level Trough 7.7 mcg/mL (10.0-20.0) Vancomycin Last Dose Date 08/08/19 Vancomycin Last Dose Time 0000 Assessment and Plan Assessmemt and Plan Problems Medical Problems: (1) AMS (altered mental status) Status: Acute (2) Cough Status: Acute (3) Hypokalemia Status: Acute (4) Person under investigation for COVID-19 Status: Acute (5) Rhabdomyolysis Status: Acute (6) Sepsis Status: Acute (7) Shortness of breath Status: Acute Comment Review of Relevant I have reviewed the following items bonnie (where applicable) has been applied. Labs Laboratory Tests Test 08/07/19 04:15 08/07/19 11:30 08/07/19 12:35 08/08/19 07:14 White Blood Count 7.4 x10^3/uL (4.0-11.0) 5.6 x10^3/uL (4.0-11.0) Red Blood Count 3.73 x10^6/uL (4.30-5.70) 3.59 x10^6/uL (4.30-5.70) Hemoglobin 13.2 g/dL (13.0-17.5) 12.7 g/dL (13.0-17.5) Hematocrit 39.5 % (39.0-53.0) 37.1 % (39.0-53.0) Mean Corpuscular Volume 106 fL (79-100) 103 fL (79-100) Mean Corpuscular Hemoglobin 36 pg (25-35) 36 pg (25-35) Mean Corpuscular Hemoglobin Concent 34 g/dL (31-37) 34 g/dL (31-37) Red Cell Distribution Width 13.3 % (11.5-14.5) 12.8 % (11.5-14.5) Platelet Count 133 x10^3/uL (140-400) 152 x10^3/uL (140-400) Neutrophils (%) (Auto) 62 % (31-73) 54 % (31-73) Lymphocytes (%) (Auto) 17 % (24-48) 19 % (24-48) Monocytes (%) (Auto) 19 % (0-9) 19 % (0-9) Eosinophils (%) (Auto) 2 % (0-3) 7 % (0-3) Basophils (%) (Auto) 1 % (0-3) 1 % (0-3) Neutrophils # (Auto) 4.6 x10^3/uL (1.8-7.7) 3.0 x10^3/uL (1.8-7.7) Lymphocytes # (Auto) 1.2 x10^3/uL (1.0-4.8) 1.0 x10^3/uL (1.0-4.8) Monocytes # (Auto) 1.4 x10^3/uL (0.0-1.1) 1.1 x10^3/uL (0.0-1.1) Eosinophils # (Auto) 0.1 x10^3/uL (0.0-0.7) 0.4 x10^3/uL (0.0-0.7) Basophils # (Auto) 0.1 x10^3/uL (0.0-0.2) 0.1 x10^3/uL (0.0-0.2) Segmented Neutrophils % 62 % (35-66) Band Neutrophils % 5 % (0-9) Lymphocytes % 14 % (24-48) Monocytes % 17 % (0-10) Eosinophils % 2 % (0-5) Platelet Estimate Decreased (ADEQUATE) Macrocytosis Slight Sodium Level 139 mmol/L (136-145) 139 mmol/L (136-145) Potassium Level 3.9 mmol/L (3.5-5.1) 3.2 mmol/L (3.5-5.1) Chloride Level 102 mmol/L (98-107) 104 mmol/L (98-107) Carbon Dioxide Level 19 mmol/L (21-32) 24 mmol/L (21-32) Anion Gap 18 (6-14) 11 (6-14) Blood Urea Nitrogen 8 mg/dL (8-26) 12 mg/dL (8-26) Creatinine 0.8 mg/dL (0.7-1.3) 0.8 mg/dL (0.7-1.3) Estimated GFR (Cockcroft-Gault) 105.5 105.5 BUN/Creatinine Ratio 10 (6-20) 15 (6-20) Glucose Level 76 mg/dL (70-99) 106 mg/dL (70-99) Calcium Level 8.7 mg/dL (8.5-10.1) 8.0 mg/dL (8.5-10.1) Total Bilirubin 0.9 mg/dL (0.2-1.0) 0.5 mg/dL (0.2-1.0) Aspartate Amino Transf (AST/SGOT) 193 U/L (15-37) 97 U/L (15-37) Alanine Aminotransferase (ALT/SGPT) 105 U/L (16-63) 80 U/L (16-63) Alkaline Phosphatase 81 U/L (46-116) 79 U/L (46-116) Creatine Kinase 3288 U/L (39-308) 1660 U/L (39-308) Total Protein 7.7 g/dL (6.4-8.2) 6.7 g/dL (6.4-8.2) Albumin 3.3 g/dL (3.4-5.0) 2.7 g/dL (3.4-5.0) Albumin/Globulin Ratio 0.8 (1.0-1.7) 0.7 (1.0-1.7) Erythrocyte Sedimentation Rate 57 (0-15) Fibrinogen 702 mg/dL (200-440) Iron Level 53 ug/dL (65-175) Total Iron Binding Capacity 200 ug/dL (250-450) Iron Saturation 27 % (15-34) Lactic Acid Level 0.8 mmol/L (0.4-2.0) Ammonia 41 mcmol/L (11-34) Vancomycin Level Trough 7.7 mcg/mL (10.0-20.0) Vancomycin Last Dose Date 08/08/19 Vancomycin Last Dose Time 0000 Laboratory Tests Test 08/07/19 11:30 08/07/19 12:35 08/08/19 07:14 Erythrocyte Sedimentation Rate 57 (0-15) Fibrinogen 702 mg/dL (200-440) Iron Level 53 ug/dL (65-175) Total Iron Binding Capacity 200 ug/dL (250-450) Iron Saturation 27 % (15-34) Lactic Acid Level 0.8 mmol/L (0.4-2.0) White Blood Count 5.6 x10^3/uL (4.0-11.0) Red Blood Count 3.59 x10^6/uL (4.30-5.70) Hemoglobin 12.7 g/dL (13.0-17.5) Hematocrit 37.1 % (39.0-53.0) Mean Corpuscular Volume 103 fL (79-100) Mean Corpuscular Hemoglobin 36 pg (25-35) Mean Corpuscular Hemoglobin Concent 34 g/dL (31-37) Red Cell Distribution Width 12.8 % (11.5-14.5) Platelet Count 152 x10^3/uL (140-400) Neutrophils (%) (Auto) 54 % (31-73) Lymphocytes (%) (Auto) 19 % (24-48) Monocytes (%) (Auto) 19 % (0-9) Eosinophils (%) (Auto) 7 % (0-3) Basophils (%) (Auto) 1 % (0-3) Neutrophils # (Auto) 3.0 x10^3/uL (1.8-7.7) Lymphocytes # (Auto) 1.0 x10^3/uL (1.0-4.8) Monocytes # (Auto) 1.1 x10^3/uL (0.0-1.1) Eosinophils # (Auto) 0.4 x10^3/uL (0.0-0.7) Basophils # (Auto) 0.1 x10^3/uL (0.0-0.2) Sodium Level 139 mmol/L (136-145) Potassium Level 3.2 mmol/L (3.5-5.1) Chloride Level 104 mmol/L (98-107) Carbon Dioxide Level 24 mmol/L (21-32) Anion Gap 11 (6-14) Blood Urea Nitrogen 12 mg/dL (8-26) Creatinine 0.8 mg/dL (0.7-1.3) Estimated GFR (Cockcroft-Gault) 105.5 BUN/Creatinine Ratio 15 (6-20) Glucose Level 106 mg/dL (70-99) Calcium Level 8.0 mg/dL (8.5-10.1) Total Bilirubin 0.5 mg/dL (0.2-1.0) Aspartate Amino Transf (AST/SGOT) 97 U/L (15-37) Alanine Aminotransferase (ALT/SGPT) 80 U/L (16-63) Alkaline Phosphatase 79 U/L (46-116) Ammonia 41 mcmol/L (11-34) Creatine Kinase 1660 U/L (39-308) Total Protein 6.7 g/dL (6.4-8.2) Albumin 2.7 g/dL (3.4-5.0) Albumin/Globulin Ratio 0.7 (1.0-1.7) Vancomycin Level Trough 7.7 mcg/mL (10.0-20.0) Vancomycin Last Dose Date 08/08/19 Vancomycin Last Dose Time 0000 Microbiology 08/06/19 Blood Culture - Preliminary, Resulted NO GROWTH AFTER 2 DAYS 08/05/19 Fecal Leukocyte Stain - Final, Complete Medications Current Medications Sodium Chloride 1,000 ml @ 1,000 mls/hr 1X ONCE IV Last administered on 08/04/19at 18:40; Start 08/04/19 at 18:00; Stop 08/04/19 at 18:59; Status DC Potassium Bicarbonate (Potassium Effervescent Tablet) 40 meq 1X ONCE PO Last administered on 08/04/19at 19:02; Start 08/04/19 at 18:45; Stop 08/04/19 at 18:47; Status DC Sodium Chloride 1,000 ml @ 1,000 mls/hr 1X ONCE IV Last administered on 08/04/19at 20:35; Start 08/04/19 at 19:30; Stop 08/04/19 at 20:29; Status DC Ondansetron HCl (Zofran) 4 mg PRN Q8HRS PRN IV NAUSEA/VOMITING; Start 08/04/19 at 19:30; Stop 08/04/19 at 20:26; Status DC Acetaminophen (Tylenol) 650 mg PRN Q4HRS PRN PO FEVER > 100.3'F; Start 08/04/19 at 19:30; Stop 08/04/19 at 20:26; Status DC Potassium Chloride/Sodium Chloride 1,000 ml @ 75 mls/hr 1X ONCE IV Last administered on 08/04/19at 21:56; Start 08/04/19 at 21:00; Stop 08/05/19 at 10:19; Status DC Sodium Chloride 1,000 ml @ 1,000 mls/hr 1X ONCE IV Last administered on 08/04/19at 22:01; Start 08/04/19 at 19:30; Stop 08/04/19 at 20:29; Status DC Ceftriaxone Sodium (Rocephin) 1 gm 1X ONCE IVP Last administered on 08/04/19at 20:34; Start 08/04/19 at 19:30; Stop 08/04/19 at 19:31; Status DC Azithromycin 250 ml @ 250 mls/hr 1X ONCE IV Last administered on 08/04/19at 19:30; Start 08/04/19 at 19:30; Stop 08/04/19 at 20:29; Status DC Cefepime HCl (Maxipime) 1 gm Q8HRS IVP ; Start 08/04/19 at 22:00; Stop 08/04/19 at 20:18; Status DC Sodium Chloride 1,000 ml @ 2,340 mls/hr Q26M IV ; Start 08/04/19 at 20:30; Stop 08/04/19 at 21:30; Status DC Sodium Chloride 500 ml @ 1,000 mls/hr PRN Q30MIN PRN IV SEE COMMENTS; Start 08/04/19 at 21:30 Cefepime HCl (Maxipime) 2 gm Q8HRS IVP Last administered on 08/06/19at 13:58; Start 08/04/19 at 22:00; Stop 08/06/19 at 15:03; Status DC Hydralazine HCl (Apresoline Inj) 10 mg PRN Q4HRS PRN IVP ELEVATED BP, SEE COMMENTS Last administered on 08/05/19at 13:17; Start 08/04/19 at 20:30 Sodium Chloride (Normal Saline Flush) 3 ml QSHIFT PRN IV AFTER MEDS AND BLOOD DRAWS; Start 08/04/19 at 20:30 Sodium Chloride 1,000 ml @ 100 mls/hr Q10H IV Last administered on 08/08/19at 09:39; Start 08/05/19 at 11:00 Ondansetron HCl (Zofran) 4 mg PRN Q4HRS PRN IV NAUSEA/VOMITING; Start 08/04/19 at 20:30 Acetaminophen (Tylenol) 650 mg PRN Q4HRS PRN PO TEMP OVER 100.4F OR MILD PAIN Last administered on 08/05/19at 11:41; Start 08/04/19 at 20:30 Al Hydroxide/Mg Hydroxide (Mylanta Plus Xs) 30 ml PRN DAILY PRN PO HEARTBURN / GAS; Start 08/04/19 at 20:30 Clonidine HCl (Catapres) 0.1 mg PRN Q6HRS PRN PO SBP>160 OR DBP>90 Last administered on 08/05/19at 11:41; Start 08/04/19 at 20:30 Sodium Monofluorophosphate (Fleet Adult) 133 ml PRN DAILY PRN [place] CONSTIPATION; Start 08/04/19 at 20:30 Docusate Sodium (Colace) 100 mg PRN BID PRN PO HARD STOOLS; Start 08/04/19 at 20:30 Albuterol Sulfate (Ventolin Neb Soln) 2.5 mg PRN Q4HRS PRN NEB SHORTNESS OF BREATH; Start 08/04/19 at 20:30 Guaifenesin (Robitussin) 200 mg PRN Q4HRS PRN PO COUGH; Start 08/04/19 at 20:30 Enoxaparin Sodium (Lovenox 40mg Syringe) 40 mg Q24H SQ Last administered on 08/06/19at 20:37; Start 08/04/19 at 21:00 Vancomycin HCl 250 ml @ 250 mls/hr 1X ONCE IV Last administered on 08/05/19at 00:57; Start 08/04/19 at 21:00; Stop 08/04/19 at 21:59; Status DC Potassium Bicarbonate (Potassium Effervescent Tablet) 40 meq 1X ONCE PO Last administered on 08/05/19at 09:15; Start 08/05/19 at 07:30; Stop 08/05/19 at 07:31; Status DC Potassium Bicarbonate (Potassium Effervescent Tablet) 20 meq 1X ONCE PO Last administered on 08/05/19at 11:15; Start 08/05/19 at 09:30; Stop 08/05/19 at 09:31; Status DC Vancomycin HCl 1 gm/Sodium Chloride 250 ml @ 250 mls/hr Q12H IV ; Start 08/05/19 at 12:00; Status UNV Vancomycin HCl (Vanco Per Pharmacy) 1 each PRN DAILY PRN MC SEE COMMENTS Last administered on 08/06/19at 11:32; Start 08/05/19 at 12:00; Stop 08/06/19 at 11:49; Status DC Vancomycin HCl 1.25 gm/Sodium Chloride 250 ml @ 167 mls/hr Q12H IV ; Start 08/05/19 at 12:30; Stop 08/05/19 at 12:01; Status DC Vancomycin HCl (Vancomycin Trough Level) 1 each 1X ONCE MC ; Start 08/07/19 at 00:00; Stop 08/06/19 at 11:48; Status DC Vancomycin HCl 1.25 gm/Sodium Chloride 250 ml @ 167 mls/hr Q12H IV Last administered on 08/06/19at 11:19; Start 08/05/19 at 12:30; Stop 08/06/19 at 11:47; Status DC Enoxaparin Sodium (Lovenox 40mg Syringe) 40 mg Q24H SQ ; Start 08/05/19 at 14:45; Status UNV Lorazepam (Ativan) 1 mg PRN Q8HRS PRN PO ANXIETY / AGITATION Last administered on 08/05/19at 15:15; Start 08/05/19 at 15:15; Stop 08/05/19 at 20:06; Status DC Lactobacillus Rhamnosus (Culturelle) 1 cap BID PO Last administered on 08/08/19at 09:39; Start 08/05/19 at 21:00 Metoprolol Tartrate (Lopressor Vial) 5 mg PRN Q5MIN PRN IVP TACHYCARDIA Last administered on 08/05/19at 17:33; Start 08/05/19 at 17:30 Lorazepam (Ativan) 1 mg PRN Q4HRS PRN PO ANXIETY / AGITATION Last administered on 08/05/19at 20:37; Start 08/05/19 at 20:15 Nicotine (Nicoderm Cq 21mg) 1 patch DAILY TD Last administered on 08/08/19at 09:39; Start 08/05/19 at 20:30 Lorazepam (Ativan Inj) 2 mg PRN Q1HR PRN IV For CIWA 8-14 Last administered on 08/06/19at 02:50; Start 08/05/19 at 22:30 Lorazepam (Ativan) 4 mg PRN Q1HR PRN PO For CIWA 8-14; Start 08/06/19 at 02:30 Haloperidol Lactate (Haldol Inj) 5 mg PRN Q4HRS PRN IVP Hallucinatns,Confusn,Delirium Last administered on 08/07/19at 10:39; Start 08/06/19 at 02:30 Diphenhydramine HCl (Benadryl) 25 mg PRN Q15MIN PRN IVP EPS symptoms 2'Haldol admin Last administered on 08/06/19at 02:50; Start 08/06/19 at 02:30 Ziprasidone (Geodon Im) 20 mg 1X ONCE IM Last administered on 08/06/19at 04:31; Start 08/06/19 at 03:30; Stop 08/06/19 at 03:31; Status DC Thiamine HCl 100 mg/Dextrose 51 ml @ 102 mls/hr DAILY IV Last administered on 08/06/19at 08:05; Start 08/06/19 at 03:30; Stop 08/07/19 at 09:52; Status DC Lorazepam (Ativan Inj) 4 mg PRN Q1HR PRN IV For CIWA 15 or greater Last administered on 08/07/19at 16:23; Start 08/06/19 at 03:15 Potassium Chloride/Water 100 ml @ 50 mls/hr 1X ONCE IV Last administered on 08/06/19at 20:38; Start 08/06/19 at 20:15; Stop 08/06/19 at 22:14; Status DC Potassium Chloride/Water 100 ml @ 50 mls/hr 1X ONCE IV Last administered on 08/06/19at 22:39; Start 08/06/19 at 22:15; Stop 08/07/19 at 00:14; Status DC Magnesium Sulfate 50 ml @ 25 mls/hr 1X ONCE IV Last administered on 08/06/19at 20:37; Start 08/06/19 at 20:15; Stop 08/06/19 at 22:14; Status DC Clonidine HCl (Catapres) 0.2 mg Q8HRS PO Last administered on 08/07/19at 14:56; Start 08/06/19 at 22:00 Multivitamins 10 ml/Thiamine HCl 100 mg/Folic Acid 1 mg/Sodium Chloride 1,011.2 ml @ 0 mls/hr DAILY IV Last administered on 08/08/19 09:38; Start 08/07/19 at 09:00 Vancomycin HCl (Vanco Per Pharmacy) 1 each PRN DAILY PRN MC SEE COMMENTS Last administered on 08/07/19at 08:35; Start 08/07/19 at 08:00 Vancomycin HCl 1 gm/Sodium Chloride 250 ml @ 250 mls/hr Q8H IV Last administered on 08/08/19at 00:36; Start 08/07/19 at 08:00; Stop 08/08/19 at 08:20; Status DC Vancomycin HCl (Vancomycin Trough Level) 1 each 1X ONCE MC ; Start 08/08/19 at 07:30; Stop 08/08/19 at 07:31; Status DC Vancomycin HCl 1.5 gm/Sodium Chloride 500 ml @ 250 mls/hr Q8H IV ; Start 08/08/19 at 09:00; Stop 08/08/19 at 09:35; Status DC Vancomycin HCl (Vancomycin Trough Level) 1 each 1X ONCE MC ; Start 08/09/19 at 08:30; Stop 08/09/19 at 08:31 Vitals/I & O Vital Sign - Last 24 Hours 08/07/19 08/07/19 08/07/19 08/07/19 10:54 14:56 15:05 19:00 Temp 97.7 97.5 97.8 97.7 97.5 97.8 Pulse 117 117 81 102 Resp 20 18 18 B/P (MAP) 137/86 (103) 137/86 147/97 (114) 141/99 (113) Pulse Ox 96 99 98 O2 Delivery Room Air Room Air Room Air 08/07/19 08/07/19 08/08/19 08/08/19 19:59 23:30 02:35 07:00 Temp 97.7 97.9 97.9 97.7 97.9 97.9 Pulse 92 100 96 Resp 18 18 18 B/P (MAP) 141/93 (109) 140/86 (104) 146/92 (110) Pulse Ox 98 98 98 O2 Delivery Room Air Room Air Room Air Room Air Intake and Output 08/07/19 08/07/19 08/08/19 15:00 23:00 07:00 Intake Total 600 ml 200 ml Output Total 350 ml 900 ml Balance 250 ml -700 ml JERRY ACEVES MD August 08, 2019 10:41
[2019-08-08 11:00] VITALS: BP 161/109
[2019-08-08] MEDS: VANCOMYCIN PER PHARMACY MC PRN (12:16)
--- NOTE | 2019-08-08 12:16 | NUR ---
Pharmacy Vancomycin Dosing Note S: Consulted to monitor and dose vancomycin started 08/05/19. O: ZHAO MCLEAN is a 43 year old M with possible bacteremia. Other Antibiotics: N/A LABS: Last BUN: 12 Last Creatinine: 0.8 Creatinine Clearance: > 100 mL/min Last WBC: 5.6 Last Procalcitonin: 0.23 Tmax (past 24 hours): 97.8 Microbiology: BLOOD CX (08/04): STAPH HOMINIS I/O: 600/500 Drug Levels: Last Trough level: 7.7 on 08/08/19 at 0730 Last dose given 08/08/19 at 0036 Vancomycin Dosing: Dosing Weight: Actual Target Trough: 15-20 A: Patient is receiving vancomycin 1000 mg IV q8hrs. A trough of 7.7 mcg/ml is below goal range for bacteremia. Renal function remains stable. P: 1. Initiate Vancomycin 1500 mg IV q8h 2. Follow up Trough level on 08/09/19 at 0830 3. Pharmacy will continue to monitor, follow and adjust therapy as needed. LIZBETH AGUILAR [facility], 08/08/19 [id number]
--- NOTE | 2019-08-08 13:21 | NUR ---
HIV antibody consent form faxed to [id number] and placed in pt's chart.
--- NOTE | 2019-08-08 13:31 | PDOC2 ---
CONSULT Date of Consult Date of Consult DATE: 08/08/19 TIME: 13:25 Reason for Consult Reason for Consult: Tachy arrhythmias Referring Physician Referring Physician: Dr. Ayala Identification/Chief Complaint Chief Complaint Initial presentation with shortness of breath, fever and weakness Source Source: Chart review, Patient History of Present Illness Reason for Visit: The patient is a 43-year-old male who was admitted on 08/04/2019 for decreased level of consciousness, fever, weakness and shortness of breath. The patient's chest x-ray showed no acute processes. He did have positive but blood cultures and has been seen and treated with antibiotics by the ID service. He also had rhabdomyolysis with a peak creatinine kinase of 3288 which is now decreased to 1660. He has ruled out for COVID 19. Today he reports feeling significantly better. He is also been found to have a history of alcohol abuse with possibly up to 1-2 bottles of vodka per day. He has been seen by GI and neurology and is on withdrawal precautions. From a cardiac viewpoint the patient is had episodes of tachycardia. These appear to meet mainly sinus tachycardia. No VT has been documented. Past Medical History GI: GERD Psych: Anxiety, Addictions, Depression Past Surgical History Past Surgical History: No pertinent history Family History Family History: Family History Unknown, Other (Reviewed and found negative noncontributory to the present) Social History ALCOHOL: heavy Drugs: None Current Problem List Problem List Problems Medical Problems: (1) AMS (altered mental status) Status: Acute (2) Cough Status: Acute (3) Hypokalemia Status: Acute (4) Person under investigation for COVID-19 Status: Acute (5) Rhabdomyolysis Status: Acute (6) Sepsis Status: Acute (7) Shortness of breath Status: Acute Current Medications Current Medications Current Medications Sodium Chloride 1,000 ml @ 1,000 mls/hr 1X ONCE IV Last administered on 08/04/19at 18:40; Start 08/04/19 at 18:00; Stop 08/04/19 at 18:59; Status DC Potassium Bicarbonate (Potassium Effervescent Tablet) 40 meq 1X ONCE PO Last administered on 08/04/19at 19:02; Start 08/04/19 at 18:45; Stop 08/04/19 at 18:47; Status DC Sodium Chloride 1,000 ml @ 1,000 mls/hr 1X ONCE IV Last administered on 08/04/19at 20:35; Start 08/04/19 at 19:30; Stop 08/04/19 at 20:29; Status DC Ondansetron HCl (Zofran) 4 mg PRN Q8HRS PRN IV NAUSEA/VOMITING; Start 08/04/19 at 19:30; Stop 08/04/19 at 20:26; Status DC Acetaminophen (Tylenol) 650 mg PRN Q4HRS PRN PO FEVER > 100.3'F; Start 08/04/19 at 19:30; Stop 08/04/19 at 20:26; Status DC Potassium Chloride/Sodium Chloride 1,000 ml @ 75 mls/hr 1X ONCE IV Last administered on 08/04/19at 21:56; Start 08/04/19 at 21:00; Stop 08/05/19 at 10:19; Status DC Sodium Chloride 1,000 ml @ 1,000 mls/hr 1X ONCE IV Last administered on 08/04/19at 22:01; Start 08/04/19 at 19:30; Stop 08/04/19 at 20:29; Status DC Ceftriaxone Sodium (Rocephin) 1 gm 1X ONCE IVP Last administered on 08/04/19at 20:34; Start 08/04/19 at 19:30; Stop 08/04/19 at 19:31; Status DC Azithromycin 250 ml @ 250 mls/hr 1X ONCE IV Last administered on 08/04/19at 19:30; Start 08/04/19 at 19:30; Stop 08/04/19 at 20:29; Status DC Cefepime HCl (Maxipime) 1 gm Q8HRS IVP ; Start 08/04/19 at 22:00; Stop 08/04/19 at 20:18; Status DC Sodium Chloride 1,000 ml @ 2,340 mls/hr Q26M IV ; Start 08/04/19 at 20:30; Stop 08/04/19 at 21:30; Status DC Sodium Chloride 500 ml @ 1,000 mls/hr PRN Q30MIN PRN IV SEE COMMENTS; Start 08/04/19 at 21:30 Cefepime HCl (Maxipime) 2 gm Q8HRS IVP Last administered on 08/06/19at 13:58; Start 08/04/19 at 22:00; Stop 08/06/19 at 15:03; Status DC Hydralazine HCl (Apresoline Inj) 10 mg PRN Q4HRS PRN IVP ELEVATED BP, SEE COMMENTS Last administered on 08/05/19at 13:17; Start 08/04/19 at 20:30 Sodium Chloride (Normal Saline Flush) 3 ml QSHIFT PRN IV AFTER MEDS AND BLOOD DRAWS; Start 08/04/19 at 20:30 Sodium Chloride 1,000 ml @ 100 mls/hr Q10H IV Last administered on 08/08/19at 09:39; Start 08/05/19 at 11:00 Ondansetron HCl (Zofran) 4 mg PRN Q4HRS PRN IV NAUSEA/VOMITING; Start 08/04/19 at 20:30 Acetaminophen (Tylenol) 650 mg PRN Q4HRS PRN PO TEMP OVER 100.4F OR MILD PAIN Last administered on 08/05/19at 11:41; Start 08/04/19 at 20:30 Al Hydroxide/Mg Hydroxide (Mylanta Plus Xs) 30 ml PRN DAILY PRN PO HEARTBURN / GAS; Start 08/04/19 at 20:30 Clonidine HCl (Catapres) 0.1 mg PRN Q6HRS PRN PO SBP>160 OR DBP>90 Last administered on 08/05/19at 11:41; Start 08/04/19 at 20:30 Sodium Monofluorophosphate (Fleet Adult) 133 ml PRN DAILY PRN [place] CONSTIPATION; Start 08/04/19 at 20:30 Docusate Sodium (Colace) 100 mg PRN BID PRN PO HARD STOOLS; Start 08/04/19 at 20:30 Albuterol Sulfate (Ventolin Neb Soln) 2.5 mg PRN Q4HRS PRN NEB SHORTNESS OF BREATH; Start 08/04/19 at 20:30 Guaifenesin (Robitussin) 200 mg PRN Q4HRS PRN PO COUGH; Start 08/04/19 at 20:30 Enoxaparin Sodium (Lovenox 40mg Syringe) 40 mg Q24H SQ Last administered on 08/06/19at 20:37; Start 08/04/19 at 21:00 Vancomycin HCl 250 ml @ 250 mls/hr 1X ONCE IV Last administered on 08/05/19at 00:57; Start 08/04/19 at 21:00; Stop 08/04/19 at 21:59; Status DC Potassium Bicarbonate (Potassium Effervescent Tablet) 40 meq 1X ONCE PO Last administered on 08/05/19at 09:15; Start 08/05/19 at 07:30; Stop 08/05/19 at 07:31; Status DC Potassium Bicarbonate (Potassium Effervescent Tablet) 20 meq 1X ONCE PO Last administered on 08/05/19at 11:15; Start 08/05/19 at 09:30; Stop 08/05/19 at 09:31; Status DC Vancomycin HCl 1 gm/Sodium Chloride 250 ml @ 250 mls/hr Q12H IV ; Start 08/05/19 at 12:00; Status UNV Vancomycin HCl (Vanco Per Pharmacy) 1 each PRN DAILY PRN MC SEE COMMENTS Last administered on 08/06/19at 11:32; Start 08/05/19 at 12:00; Stop 08/06/19 at 11:49; Status DC Vancomycin HCl 1.25 gm/Sodium Chloride 250 ml @ 167 mls/hr Q12H IV ; Start 08/05/19 at 12:30; Stop 08/05/19 at 12:01; Status DC Vancomycin HCl (Vancomycin Trough Level) 1 each 1X ONCE MC ; Start 08/07/19 at 00:00; Stop 08/06/19 at 11:48; Status DC Vancomycin HCl 1.25 gm/Sodium Chloride 250 ml @ 167 mls/hr Q12H IV Last administered on 08/06/19at 11:19; Start 08/05/19 at 12:30; Stop 08/06/19 at 11:47; Status DC Enoxaparin Sodium (Lovenox 40mg Syringe) 40 mg Q24H SQ ; Start 08/05/19 at 14:45; Status UNV Lorazepam (Ativan) 1 mg PRN Q8HRS PRN PO ANXIETY / AGITATION Last administered on 08/05/19at 15:15; Start 08/05/19 at 15:15; Stop 08/05/19 at 20:06; Status DC Lactobacillus Rhamnosus (Culturelle) 1 cap BID PO Last administered on 08/08/19at 09:39; Start 08/05/19 at 21:00 Metoprolol Tartrate (Lopressor Vial) 5 mg PRN Q5MIN PRN IVP TACHYCARDIA Last a dministered on 08/05/19at 17:33; Start 08/05/19 at 17:30 Lorazepam (Ativan) 1 mg PRN Q4HRS PRN PO ANXIETY / AGITATION Last administered on 08/05/19at 20:37; Start 08/05/19 at 20:15 Nicotine (Nicoderm Cq 21mg) 1 patch DAILY TD Last administered on 08/08/19 09:39; Start 08/05/19 at 20:30 Lorazepam (Ativan Inj) 2 mg PRN Q1HR PRN IV For CIWA 8-14 Last administered on 08/06/19at 02:50; Start 08/05/19 at 22:30 Lorazepam (Ativan) 4 mg PRN Q1HR PRN PO For CIWA 8-14; Start 08/06/19 at 02:30 Haloperidol Lactate (Haldol Inj) 5 mg PRN Q4HRS PRN IVP Hallucinatns,Confusn,Delirium Last administered on 08/07/19at 10:39; Start 08/06/19 at 02:30 Diphenhydramine HCl (Benadryl) 25 mg PRN Q15MIN PRN IVP EPS symptoms 2'Haldol admin Last administered on 08/06/19at 02:50; Start 08/06/19 at 02:30 Ziprasidone (Geodon Im) 20 mg 1X ONCE IM Last administered on 08/06/19at 04:31; Start 08/06/19 at 03:30; Stop 08/06/19 at 03:31; Status DC Thiamine HCl 100 mg/Dextrose 51 ml @ 102 mls/hr DAILY IV Last administered on 08/06/19at 08:05; Start 08/06/19 at 03:30; Stop 08/07/19 at 09:52; Status DC Lorazepam (Ativan Inj) 4 mg PRN Q1HR PRN IV For CIWA 15 or greater Last administered on 08/07/19at 16:23; Start 08/06/19 at 03:15 Potassium Chloride/Water 100 ml @ 50 mls/hr 1X ONCE IV Last administered on 08/06/19at 20:38; Start 08/06/19 at 20:15; Stop 08/06/19 at 22:14; Status DC Potassium Chloride/Water 100 ml @ 50 mls/hr 1X ONCE IV Last administered on 08/06/19at 22:39; Start 08/06/19 at 22:15; Stop 08/07/19 at 00:14; Status DC Magnesium Sulfate 50 ml @ 25 mls/hr 1X ONCE IV Last administered on 08/06/19at 20:37; Start 08/06/19 at 20:15; Stop 08/06/19 at 22:14; Status DC Clonidine HCl (Catapres) 0.2 mg Q8HRS PO Last administered on 08/07/19at 14:56; Start 08/06/19 at 22:00 Multivitamins 10 ml/Thiamine HCl 100 mg/Folic Acid 1 mg/Sodium Chloride 1,011.2 ml @ 0 mls/hr DAILY IV Last administered on 08/08/19at 09:38; Start 08/07/19 at 09:00 Vancomycin HCl (Vanco Per Pharmacy) 1 each PRN DAILY PRN MC SEE COMMENTS Last administered on 08/08/19at 12:16; Start 08/07/19 at 08:00; Stop 08/08/19 at 13:00; Status DC Vancomycin HCl 1 gm/Sodium Chloride 250 ml @ 250 mls/hr Q8H IV Last administered on 08/08/19at 00:36; Start 08/07/19 at 08:00; Stop 08/08/19 at 08:20; Status DC Vancomycin HCl (Vancomycin Trough Level) 1 each 1X ONCE MC ; Start 08/08/19 at 07:30; Stop 08/08/19 at 07:31; Status DC Vancomycin HCl 1.5 gm/Sodium Chloride 500 ml @ 250 mls/hr Q8H IV ; Start 08/08/19 at 09:00; Stop 08/08/19 at 09:35; Status DC Vancomycin HCl (Vancomycin Trough Level) 1 each 1X ONCE MC ; Start 08/09/19 at 08:30; Stop 08/09/19 at 08:31; Status Cancel Lactulose (Lactulose) 20 gm TID PO ; Start 08/08/19 at 14:00 Allergies Allergies: Coded Allergies: No Known Drug Allergies (Unverified , 08/04/19) ROS General: YES: Fatigue, Malaise Respiratory: YES: Shortness of breath Physical Exam General: mild distress HEENT: Atraumatic Lungs: Other (Mildly decreased breath sounds) Heart: Other (Regular rhythm rate of 96) Vitals VITALS Vital Signs Date Time Temp Pulse Resp B/P (MAP) Pulse Ox O2 Delivery O2 Flow Rate FiO2 08/08/19 11:00 97.8 98 18 161/109 (126) 98 Room Air 97.8 Labs Labs Laboratory Tests Test 08/07/19 04:15 08/07/19 11:30 08/07/19 12:35 08/08/19 07:14 White Blood Count 7.4 x10^3/uL (4.0-11.0) 5.6 x10^3/uL (4.0-11.0) Red Blood Count 3.73 x10^6/uL (4.30-5.70) 3.59 x10^6/uL (4.30-5.70) Hemoglobin 13.2 g/dL (13.0-17.5) 12.7 g/dL (13.0-17.5) Hematocrit 39.5 % (39.0-53.0) 37.1 % (39.0-53.0) Mean Corpuscular Volume 106 fL (79-100) 103 fL (79-100) Mean Corpuscular Hemoglobin 36 pg (25-35) 36 pg (25-35) Mean Corpuscular Hemoglobin Concent 34 g/dL (31-37) 34 g/dL (31-37) Red Cell Distribution Width 13.3 % (11.5-14.5) 12.8 % (11.5-14.5) Platelet Count 133 x10^3/uL (140-400) 152 x10^3/uL (140-400) Neutrophils (%) (Auto) 62 % (31-73) 54 % (31-73) Lymphocytes (%) (Auto) 17 % (24-48) 19 % (24-48) Monocytes (%) (Auto) 19 % (0-9) 19 % (0-9) Eosinophils (%) (Auto) 2 % (0-3) 7 % (0-3) Basophils (%) (Auto) 1 % (0-3) 1 % (0-3) Neutrophils # (Auto) 4.6 x10^3/uL (1.8-7.7) 3.0 x10^3/uL (1.8-7.7) Lymphocytes # (Auto) 1.2 x10^3/uL (1.0-4.8) 1.0 x10^3/uL (1.0-4.8) Monocytes # (Auto) 1.4 x10^3/uL (0.0-1.1) 1.1 x10^3/uL (0.0-1.1) Eosinophils # (Auto) 0.1 x10^3/uL (0.0-0.7) 0.4 x10^3/uL (0.0-0.7) Basophils # (Auto) 0.1 x10^3/uL (0.0-0.2) 0.1 x10^3/uL (0.0-0.2) Segmented Neutrophils % 62 % (35-66) Band Neutrophils % 5 % (0-9) Lymphocytes % 14 % (24-48) Monocytes % 17 % (0-10) Eosinophils % 2 % (0-5) Platelet Estimate Decreased (ADEQUATE) Macrocytosis Slight Sodium Level 139 mmol/L (136-145) 139 mmol/L (136-145) Potassium Level 3.9 mmol/L (3.5-5.1) 3.2 mmol/L (3.5-5.1) Chloride Level 102 mmol/L (98-107) 104 mmol/L (98-107) Carbon Dioxide Level 19 mmol/L (21-32) 24 mmol/L (21-32) Anion Gap 18 (6-14) 11 (6-14) Blood Urea Nitrogen 8 mg/dL (8-26) 12 mg/dL (8-26) Creatinine 0.8 mg/dL (0.7-1.3) 0.8 mg/dL (0.7-1.3) Estimated GFR (Cockcroft-Gault) 105.5 105.5 BUN/Creatinine Ratio 10 (6-20) 15 (6-20) Glucose Level 76 mg/dL (70-99) 106 mg/dL (70-99) Calcium Level 8.7 mg/dL (8.5-10.1) 8.0 mg/dL (8.5-10.1) Total Bilirubin 0.9 mg/dL (0.2-1.0) 0.5 mg/dL (0.2-1.0) Aspartate Amino Transf (AST/SGOT) 193 U/L (15-37) 97 U/L (15-37) Alanine Aminotransferase (ALT/SGPT) 105 U/L (16-63) 80 U/L (16-63) Alkaline Phosphatase 81 U/L (46-116) 79 U/L (46-116) Creatine Kinase 3288 U/L (39-308) 1660 U/L (39-308) Total Protein 7.7 g/dL (6.4-8.2) 6.7 g/dL (6.4-8.2) Albumin 3.3 g/dL (3.4-5.0) 2.7 g/dL (3.4-5.0) Albumin/Globulin Ratio 0.8 (1.0-1.7) 0.7 (1.0-1.7) Vitamin B12 Level 1423 pg/mL (247-911) Erythrocyte Sedimentation Rate 57 (0-15) Fibrinogen 702 mg/dL (200-440) Iron Level 53 ug/dL (65-175) Total Iron Binding Capacity 200 ug/dL (250-450) Iron Saturation 27 % (15-34) Hepatitis A IgM Antibody Nonreactive (Nonreactive) Hepatitis B Surface Antigen Nonreactive (Nonreactive) Hepatitis B Core IgM Antibody Nonreactive (Nonreactive) Hepatitis C IgG Antibody Nonreactive (Nonreactive) Lactic Acid Level 0.8 mmol/L (0.4-2.0) Ammonia 41 mcmol/L (11-34) Vancomycin Level Trough 7.7 mcg/mL (10.0-20.0) Vancomycin Last Dose Date 08/08/19 Vancomycin Last Dose Time 0000 Laboratory Tests Test 08/08/19 07:14 White Blood Count 5.6 x10^3/uL (4.0-11.0) Red Blood Count 3.59 x10^6/uL (4.30-5.70) Hemoglobin 12.7 g/dL (13.0-17.5) Hematocrit 37.1 % (39.0-53.0) Mean Corpuscular Volume 103 fL (79-100) Mean Corpuscular Hemoglobin 36 pg (25-35) Mean Corpuscular Hemoglobin Concent 34 g/dL (31-37) Red Cell Distribution Width 12.8 % (11.5-14.5) Platelet Count 152 x10^3/uL (140-400) Neutrophils (%) (Auto) 54 % (31-73) Lymphocytes (%) (Auto) 19 % (24-48) Monocytes (%) (Auto) 19 % (0-9) Eosinophils (%) (Auto) 7 % (0-3) Basophils (%) (Auto) 1 % (0-3) Neutrophils # (Auto) 3.0 x10^3/uL (1.8-7.7) Lymphocytes # (Auto) 1.0 x10^3/uL (1.0-4.8) Monocytes # (Auto) 1.1 x10^3/uL (0.0-1.1) Eosinophils # (Auto) 0.4 x10^3/uL (0.0-0.7) Basophils # (Auto) 0.1 x10^3/uL (0.0-0.2) Sodium Level 139 mmol/L (136-145) Potassium Level 3.2 mmol/L (3.5-5.1) Chloride Level 104 mmol/L (98-107) Carbon Dioxide Level 24 mmol/L (21-32) Anion Gap 11 (6-14) Blood Urea Nitrogen 12 mg/dL (8-26) Creatinine 0.8 mg/dL (0.7-1.3) Estimated GFR (Cockcroft-Gault) 105.5 BUN/Creatinine Ratio 15 (6-20) Glucose Level 106 mg/dL (70-99) Calcium Level 8.0 mg/dL (8.5-10.1) Total Bilirubin 0.5 mg/dL (0.2-1.0) Aspartate Amino Transf (AST/SGOT) 97 U/L (15-37) Alanine Aminotransferase (ALT/SGPT) 80 U/L (16-63) Alkaline Phosphatase 79 U/L (46-116) Ammonia 41 mcmol/L (11-34) Creatine Kinase 1660 U/L (39-308) Total Protein 6.7 g/dL (6.4-8.2) Albumin 2.7 g/dL (3.4-5.0) Albumin/Globulin Ratio 0.7 (1.0-1.7) Vancomycin Level Trough 7.7 mcg/mL (10.0-20.0) Vancomycin Last Dose Date 08/08/19 Vancomycin Last Dose Time 0000 Images Images Chest x-ray with no acute processes. Assessment/Plan Assessment/Plan 1. Initial decreased level of consciousness. Work-up has included a finding of severe alcohol abuse and the patient is on withdrawal precautions. Patient is also been evaluated the ID service. Level of consciousness is now returning to baseline. 2. Possible sepsis. Positive cultures. Antibiotics as per the ID service. 3. Rhabdomyolysis. Peak creatinine kinase of 3288. Posttreatment has now decreased to 1660. Continue present treatment. 4. COVID-19 negative. 5. Tach arrhythmias. Now on mild sinus tachycardia. Tachycardia secondary to underlying disease processes as above. Will continue on telemetry. Check echo. Continue to monitor lab. Thank you for allowing us to participate in the care of your patient. FLOR HICKEY MD August 08, 2019 13:31
--- NOTE | 2019-08-08 13:55 | PDOC ---
PROGRESS NOTES Assessment Problems Medical Problems: (1) AMS (altered mental status) Status: Acute (2) Cough Status: Acute (3) Hypokalemia Status: Acute (4) Person under investigation for COVID-19 Status: Acute (5) Rhabdomyolysis Status: Acute (6) Sepsis Status: Acute (7) Shortness of breath Status: Acute Alcoholism, hepatic encephalopathy, better, note elevated ammonia level today Rhabdomyolysis, continues to have elevated CPK level Medical issues: fevers, macrocytic anemia with thrombocytopenia, lactic acidosis which resolved, elevated CPK, hypokalemia, transaminitis, hepatomegaly, hepatic steatosis, elevated d-dimer Plan Alcohol withdrawal protocol including sedatives and thiamine. No additional neurological studies such as electroencephalogram or lumbar puncture are required. I admonished the patient to cease drinking alcohol as he has had severe damage to his liver. Subjective He says no one has told him that he has alcohol liver disease. Objective Vital Signs Date Time Temp Pulse Resp B/P (MAP) Pulse Ox O2 Delivery O2 Flow Rate FiO2 08/08/19 11:00 97.8 98 18 161/109 (126) 98 Room Air 97.8 Intake and Output 08/08/19 07:00 Intake Total 800 ml Output Total 1250 ml Balance -450 ml Intake Oral 800 ml Output Urine Total 1250 ml # Voids 4 # Bowel Movements 2 PHYSICAL EXAM Alert. Oriented to time, place and person. PERRL. EOMI. CN: no focal findings. Muscle tone: normal. Muscle strength: 5/5 DTR: 1+ Plantar reflex: Flexor Gait: not examined in bed. Sensory exam: no abnormal findings. No cerebellar signs elicited. Mild tremulousness Review of Relevant I have reviewed the following items bonnie (where applicable) has been applied. Labs Laboratory Tests Test 08/07/19 04:15 08/07/19 11:30 08/07/19 12:35 08/08/19 07:14 White Blood Count 7.4 x10^3/uL (4.0-11.0) 5.6 x10^3/uL (4.0-11.0) Red Blood Count 3.73 x10^6/uL (4.30-5.70) 3.59 x10^6/uL (4.30-5.70) Hemoglobin 13.2 g/dL (13.0-17.5) 12.7 g/dL (13.0-17.5) Hematocrit 39.5 % (39.0-53.0) 37.1 % (39.0-53.0) Mean Corpuscular Volume 106 fL (79-100) 103 fL (79-100) Mean Corpuscular Hemoglobin 36 pg (25-35) 36 pg (25-35) Mean Corpuscular Hemoglobin Concent 34 g/dL (31-37) 34 g/dL (31-37) Red Cell Distribution Width 13.3 % (11.5-14.5) 12.8 % (11.5-14.5) Platelet Count 133 x10^3/uL (140-400) 152 x10^3/uL (140-400) Neutrophils (%) (Auto) 62 % (31-73) 54 % (31-73) Lymphocytes (%) (Auto) 17 % (24-48) 19 % (24-48) Monocytes (%) (Auto) 19 % (0-9) 19 % (0-9) Eosinophils (%) (Auto) 2 % (0-3) 7 % (0-3) Basophils (%) (Auto) 1 % (0-3) 1 % (0-3) Neutrophils # (Auto) 4.6 x10^3/uL (1.8-7.7) 3.0 x10^3/uL (1.8-7.7) Lymphocytes # (Auto) 1.2 x10^3/uL (1.0-4.8) 1.0 x10^3/uL (1.0-4.8) Monocytes # (Auto) 1.4 x10^3/uL (0.0-1.1) 1.1 x10^3/uL (0.0-1.1) Eosinophils # (Auto) 0.1 x10^3/uL (0.0-0.7) 0.4 x10^3/uL (0.0-0.7) Basophils # (Auto) 0.1 x10^3/uL (0.0-0.2) 0.1 x10^3/uL (0.0-0.2) Segmented Neutrophils % 62 % (35-66) Band Neutrophils % 5 % (0-9) Lymphocytes % 14 % (24-48) Monocytes % 17 % (0-10) Eosinophils % 2 % (0-5) Platelet Estimate Decreased (ADEQUATE) Macrocytosis Slight Sodium Level 139 mmol/L (136-145) 139 mmol/L (136-145) Potassium Level 3.9 mmol/L (3.5-5.1) 3.2 mmol/L (3.5-5.1) Chloride Level 102 mmol/L (98-107) 104 mmol/L (98-107) Carbon Dioxide Level 19 mmol/L (21-32) 24 mmol/L (21-32) Anion Gap 18 (6-14) 11 (6-14) Blood Urea Nitrogen 8 mg/dL (8-26) 12 mg/dL (8-26) Creatinine 0.8 mg/dL (0.7-1.3) 0.8 mg/dL (0.7-1.3) Estimated GFR (Cockcroft-Gault) 105.5 105.5 BUN/Creatinine Ratio 10 (6-20) 15 (6-20) Glucose Level 76 mg/dL (70-99) 106 mg/dL (70-99) Calcium Level 8.7 mg/dL (8.5-10.1) 8.0 mg/dL (8.5-10.1) Total Bilirubin 0.9 mg/dL (0.2-1.0) 0.5 mg/dL (0.2-1.0) Aspartate Amino Transf (AST/SGOT) 193 U/L (15-37) 97 U/L (15-37) Alanine Aminotransferase (ALT/SGPT) 105 U/L (16-63) 80 U/L (16-63) Alkaline Phosphatase 81 U/L (46-116) 79 U/L (46-116) Creatine Kinase 3288 U/L (39-308) 1660 U/L (39-308) Total Protein 7.7 g/dL (6.4-8.2) 6.7 g/dL (6.4-8.2) Albumin 3.3 g/dL (3.4-5.0) 2.7 g/dL (3.4-5.0) Albumin/Globulin Ratio 0.8 (1.0-1.7) 0.7 (1.0-1.7) Vitamin B12 Level 1423 pg/mL (247-911) Erythrocyte Sedimentation Rate 57 (0-15) Fibrinogen 702 mg/dL (200-440) Iron Level 53 ug/dL (65-175) Total Iron Binding Capacity 200 ug/dL (250-450) Iron Saturation 27 % (15-34) Hepatitis A IgM Antibody Nonreactive (Nonreactive) Hepatitis B Surface Antigen Nonreactive (Nonreactive) Hepatitis B Core IgM Antibody Nonreactive (Nonreactive) Hepatitis C IgG Antibody Nonreactive (Nonreactive) Lactic Acid Level 0.8 mmol/L (0.4-2.0) Ammonia 41 mcmol/L (11-34) Vancomycin Level Trough 7.7 mcg/mL (10.0-20.0) Vancomycin Last Dose Date 08/08/19 Vancomycin Last Dose Time 0000 Laboratory Tests Test 08/08/19 07:14 White Blood Count 5.6 x10^3/uL (4.0-11.0) Red Blood Count 3.59 x10^6/uL (4.30-5.70) Hemoglobin 12.7 g/dL (13.0-17.5) Hematocrit 37.1 % (39.0-53.0) Mean Corpuscular Volume 103 fL (79-100) Mean Corpuscular Hemoglobin 36 pg (25-35) Mean Corpuscular Hemoglobin Concent 34 g/dL (31-37) Red Cell Distribution Width 12.8 % (11.5-14.5) Platelet Count 152 x10^3/uL (140-400) Neutrophils (%) (Auto) 54 % (31-73) Lymphocytes (%) (Auto) 19 % (24-48) Monocytes (%) (Auto) 19 % (0-9) Eosinophils (%) (Auto) 7 % (0-3) Basophils (%) (Auto) 1 % (0-3) Neutrophils # (Auto) 3.0 x10^3/uL (1.8-7.7) Lymphocytes # (Auto) 1.0 x10^3/uL (1.0-4.8) Monocytes # (Auto) 1.1 x10^3/uL (0.0-1.1) Eosinophils # (Auto) 0.4 x10^3/uL (0.0-0.7) Basophils # (Auto) 0.1 x10^3/uL (0.0-0.2) Sodium Level 139 mmol/L (136-145) Potassium Level 3.2 mmol/L (3.5-5.1) Chloride Level 104 mmol/L (98-107) Carbon Dioxide Level 24 mmol/L (21-32) Anion Gap 11 (6-14) Blood Urea Nitrogen 12 mg/dL (8-26) Creatinine 0.8 mg/dL (0.7-1.3) Estimated GFR (Cockcroft-Gault) 105.5 BUN/Creatinine Ratio 15 (6-20) Glucose Level 106 mg/dL (70-99) Calcium Level 8.0 mg/dL (8.5-10.1) Total Bilirubin 0.5 mg/dL (0.2-1.0) Aspartate Amino Transf (AST/SGOT) 97 U/L (15-37) Alanine Aminotransferase (ALT/SGPT) 80 U/L (16-63) Alkaline Phosphatase 79 U/L (46-116) Ammonia 41 mcmol/L (11-34) Creatine Kinase 1660 U/L (39-308) Total Protein 6.7 g/dL (6.4-8.2) Albumin 2.7 g/dL (3.4-5.0) Albumin/Globulin Ratio 0.7 (1.0-1.7) Vancomycin Level Trough 7.7 mcg/mL (10.0-20.0) Vancomycin Last Dose Date 08/08/19 Vancomycin Last Dose Time 0000 Microbiology 08/06/19 Blood Culture - Preliminary, Resulted NO GROWTH AFTER 2 DAYS 08/05/19 Fecal Leukocyte Stain - Final, Complete Medications Current Medications Sodium Chloride 1,000 ml @ 1,000 mls/hr 1X ONCE IV Last administered on 08/04/19at 18:40; Start 08/04/19 at 18:00; Stop 08/04/19 at 18:59; Status DC Potassium Bicarbonate (Potassium Effervescent Tablet) 40 meq 1X ONCE PO Last administered on 08/04/19at 19:02; Start 08/04/19 at 18:45; Stop 08/04/19 at 18:47; Status DC Sodium Chloride 1,000 ml @ 1,000 mls/hr 1X ONCE IV Last administered on 08/04/19at 20:35; Start 08/04/19 at 19:30; Stop 08/04/19 at 20:29; Status DC Ondansetron HCl (Zofran) 4 mg PRN Q8HRS PRN IV NAUSEA/VOMITING; Start 08/04/19 at 19:30; Stop 08/04/19 at 20:26; Status DC Acetaminophen (Tylenol) 650 mg PRN Q4HRS PRN PO FEVER > 100.3'F; Start 08/04/19 at 19:30; Stop 08/04/19 at 20:26; Status DC Potassium Chloride/Sodium Chloride 1,000 ml @ 75 mls/hr 1X ONCE IV Last administered on 08/04/19at 21:56; Start 08/04/19 at 21:00; Stop 08/05/19 at 10:19; Status DC Sodium Chloride 1,000 ml @ 1,000 mls/hr 1X ONCE IV Last administered on 08/04/19at 22:01; Start 08/04/19 at 19:30; Stop 08/04/19 at 20:29; Status DC Ceftriaxone Sodium (Rocephin) 1 gm 1X ONCE IVP Last administered on 08/04/19at 20:34; Start 08/04/19 at 19:30; Stop 08/04/19 at 19:31; Status DC Azithromycin 250 ml @ 250 mls/hr 1X ONCE IV Last administered on 08/04/19at 19:30; Start 08/04/19 at 19:30; Stop 08/04/19 at 20:29; Status DC Cefepime HCl (Maxipime) 1 gm Q8HRS IVP ; Start 08/04/19 at 22:00; Stop 08/04/19 at 20:18; Status DC Sodium Chloride 1,000 ml @ 2,340 mls/hr Q26M IV ; Start 08/04/19 at 20:30; Stop 08/04/19 at 21:30; Status DC Sodium Chloride 500 ml @ 1,000 mls/hr PRN Q30MIN PRN IV SEE COMMENTS; Start 08/04/19 at 21:30 Cefepime HCl (Maxipime) 2 gm Q8HRS IVP Last administered on 08/06/19at 13:58; Start 08/04/19 at 22:00; Stop 08/06/19 at 15:03; Status DC Hydralazine HCl (Apresoline Inj) 10 mg PRN Q4HRS PRN IVP ELEVATED BP, SEE COMMENTS Last administered on 08/05/19at 13:17; Start 08/04/19 at 20:30 Sodium Chloride (Normal Saline Flush) 3 ml QSHIFT PRN IV AFTER MEDS AND BLOOD DRAWS; Start 08/04/19 at 20:30 Sodium Chloride 1,000 ml @ 100 mls/hr Q10H IV Last administered on 08/08/19at 09:39; Start 08/05/19 at 11:00 Ondansetron HCl (Zofran) 4 mg PRN Q4HRS PRN IV NAUSEA/VOMITING; Start 08/04/19 at 20:30 Acetaminophen (Tylenol) 650 mg PRN Q4HRS PRN PO TEMP OVER 100.4F OR MILD PAIN Last administered on 08/05/19at 11:41; Start 08/04/19 at 20:30 Al Hydroxide/Mg Hydroxide (Mylanta Plus Xs) 30 ml PRN DAILY PRN PO HEARTBURN / GAS; Start 08/04/19 at 20:30 Clonidine HCl (Catapres) 0.1 mg PRN Q6HRS PRN PO SBP>160 OR DBP>90 Last administered on 08/05/19at 11:41; Start 08/04/19 at 20:30 Sodium Monofluorophosphate (Fleet Adult) 133 ml PRN DAILY PRN [place] CONSTIPATION; Start 08/04/19 at 20:30 Docusate Sodium (Colace) 100 mg PRN BID PRN PO HARD STOOLS; Start 08/04/19 at 20:30 Albuterol Sulfate (Ventolin Neb Soln) 2.5 mg PRN Q4HRS PRN NEB SHORTNESS OF BREATH; Start 08/04/19 at 20:30 Guaifenesin (Robitussin) 200 mg PRN Q4HRS PRN PO COUGH; Start 08/04/19 at 20:30 Enoxaparin Sodium (Lovenox 40mg Syringe) 40 mg Q24H SQ Last administered on 08/06/19at 20:37; Start 08/04/19 at 21:00 Vancomycin HCl 250 ml @ 250 mls/hr 1X ONCE IV Last administered on 08/05/19at 00:57; Start 08/04/19 at 21:00; Stop 08/04/19 at 21:59; Status DC Potassium Bicarbonate (Potassium Effervescent Tablet) 40 meq 1X ONCE PO Last administered on 08/05/19at 09:15; Start 08/05/19 at 07:30; Stop 08/05/19 at 07: 31; Status DC Potassium Bicarbonate (Potassium Effervescent Tablet) 20 meq 1X ONCE PO Last administered on 08/05/19at 11:15; Start 08/05/19 at 09:30; Stop 08/05/19 at 09:31; Status DC Vancomycin HCl 1 gm/Sodium Chloride 250 ml @ 250 mls/hr Q12H IV ; Start 08/05/19 at 12:00; Status UNV Vancomycin HCl (Vanco Per Pharmacy) 1 each PRN DAILY PRN MC SEE COMMENTS Last administered on 08/06/19at 11:32; Start 08/05/19 at 12:00; Stop 08/06/19 at 11:49; Status DC Vancomycin HCl 1.25 gm/Sodium Chloride 250 ml @ 167 mls/hr Q12H IV ; Start 08/05/19 at 12:30; Stop 08/05/19 at 12:01; Status DC Vancomycin HCl (Vancomycin Trough Level) 1 each 1X ONCE MC ; Start 08/07/19 at 00:00; Stop 08/06/19 at 11:48; Status DC Vancomycin HCl 1.25 gm/Sodium Chloride 250 ml @ 167 mls/hr Q12H IV Last administered on 08/06/19at 11:19; Start 08/05/19 at 12:30; Stop 08/06/19 at 11:47; Status DC Enoxaparin Sodium (Lovenox 40mg Syringe) 40 mg Q24H SQ ; Start 08/05/19 at 14:45; Status UNV Lorazepam (Ativan) 1 mg PRN Q8HRS PRN PO ANXIETY / AGITATION Last administered on 08/05/19at 15:15; Start 08/05/19 at 15:15; Stop 08/05/19 at 20:06; Status DC Lactobacillus Rhamnosus (Culturelle) 1 cap BID PO Last administered on 08/08/19at 09:39; Start 08/05/19 at 21:00 Metoprolol Tartrate (Lopressor Vial) 5 mg PRN Q5MIN PRN IVP TACHYCARDIA Last administered on 08/05/19at 17:33; Start 08/05/19 at 17:30 Lorazepam (Ativan) 1 mg PRN Q4HRS PRN PO ANXIETY / AGITATION Last administered on 08/05/19at 20:37; Start 08/05/19 at 20:15 Nicotine (Nicoderm Cq 21mg) 1 patch DAILY TD Last administered on 08/08/19at 09:39; Start 08/05/19 at 20:30 Lorazepam (Ativan Inj) 2 mg PRN Q1HR PRN IV For CIWA 8-14 Last administered on 08/06/19at 02:50; Start 08/05/19 at 22:30 Lorazepam (Ativan) 4 mg PRN Q1HR PRN PO For CIWA 8-14; Start 08/06/19 at 02:30 Haloperidol Lactate (Haldol Inj) 5 mg PRN Q4HRS PRN IVP Hallucinatns,Confusn,Delirium Last administered on 08/07/19at 10:39; Start 08/06/19 at 02:30 Diphenhydramine HCl (Benadryl) 25 mg PRN Q15MIN PRN IVP EPS symptoms 2'Haldol admin Last administered on 08/06/19at 02:50; Start 08/06/19 at 02:30 Ziprasidone (Geodon Im) 20 mg 1X ONCE IM Last administered on 08/06/19at 04:31; Start 08/06/19 at 03:30; Stop 08/06/19 at 03:31; Status DC Thiamine HCl 100 mg/Dextrose 51 ml @ 102 mls/hr DAILY IV Last administered on 08/06/19at 08:05; Start 08/06/19 at 03:30; Stop 08/07/19 at 09:52; Status DC Lorazepam (Ativan Inj) 4 mg PRN Q1HR PRN IV For CIWA 15 or greater Last administered on 08/07/19at 16:23; Start 08/06/19 at 03:15 Potassium Chloride/Water 100 ml @ 50 mls/hr 1X ONCE IV Last administered on 08/06/19at 20:38; Start 08/06/19 at 20:15; Stop 08/06/19 at 22:14; Status DC Potassium Chloride/Water 100 ml @ 50 mls/hr 1X ONCE IV Last administered on 08/06/19at 22:39; Start 08/06/19 at 22:15; Stop 08/07/19 at 00:14; Status DC Magnesium Sulfate 50 ml @ 25 mls/hr 1X ONCE IV Last administered on 08/06/19at 20:37; Start 08/06/19 at 20:15; Stop 08/06/19 at 22:14; Status DC Clonidine HCl (Catapres) 0.2 mg Q8HRS PO Last administered on 08/07/19at 14:56; Start 08/06/19 at 22:00 Multivitamins 10 ml/Thiamine HCl 100 mg/Folic Acid 1 mg/Sodium Chloride 1,011.2 ml @ 0 mls/hr DAILY IV Last administered on 08/08/19at 09:38; Start 08/07/19 at 09:00 Vancomycin HCl (Vanco Per Pharmacy) 1 each PRN DAILY PRN MC SEE COMMENTS Last administered on 08/08/19at 12:16; Start 08/07/19 at 08:00; Stop 08/08/19 at 13:00; Status DC Vancomycin HCl 1 gm/Sodium Chloride 250 ml @ 250 mls/hr Q8H IV Last administered on 08/08/19at 00:36; Start 08/07/19 at 08:00; Stop 08/08/19 at 08:20; Status DC Vancomycin HCl (Vancomycin Trough Level) 1 each 1X ONCE MC ; Start 08/08/19 at 07:30; Stop 08/08/19 at 07:31; Status DC Vancomycin HCl 1.5 gm/Sodium Chloride 500 ml @ 250 mls/hr Q8H IV ; Start 08/08/19 at 09:00; Stop 08/08/19 at 09:35; Status DC Vancomycin HCl (Vancomycin Trough Level) 1 each 1X ONCE MC ; Start 08/09/19 at 08:30; Stop 08/09/19 at 08:31; Status Cancel Lactulose (Lactulose) 20 gm TID PO ; Start 08/08/19 at 14:00 Vitals/I & O Vital Sign - Last 24 Hours 08/07/19 08/07/19 08/07/19 08/07/19 14:56 15:05 19:00 19:59 Temp 97.5 97.8 97.5 97.8 Pulse 117 81 102 Resp 18 18 B/P (MAP) 137/86 147/97 (114) 141/99 (113) Pulse Ox 99 98 O2 Delivery Room Air Room Air Room Air 08/07/19 08/08/19 08/08/19 08/08/19 23:30 02:35 07:00 08:00 Temp 97.7 97.9 97.9 97.7 97.9 97.9 Pulse 92 100 96 Resp 18 18 18 B/P (MAP) 141/93 (109) 140/86 (104) 146/92 (110) Pulse Ox 98 98 98 O2 Delivery Room Air Room Air Room Air Room Air 08/08/19 11:00 Temp 97.8 97.8 Pulse 98 Resp 18 B/P (MAP) 161/109 (126) Pulse Ox 98 O2 Delivery Room Air Intake and Output 08/07/19 08/07/19 08/08/19 15:00 23:00 07:00 Intake Total 600 ml 200 ml Output Total 350 ml 900 ml Balance 250 ml -700 ml DONAVON JENNINGS MD August 08, 2019 13:55
[2019-08-08] MEDS: LACTULOSE 20 GM/30 ML SOLUTION. PO SCH ×2 (14:00→19:31)
[2019-08-08 15:00] VITALS: BP 169/89
[2019-08-08 18:50] VITALS: BP 146/102
[2019-08-08] MEDS: ENOXAPARIN 40 MG/0.4 ML SYRINGE. SQ SCH (20:01)
[2019-08-08] MEDS: LORazepam 1 MG TABLET PO PRN (20:02)
[2019-08-08 22:18] VITALS: BP 130/93
[2019-08-09] VITALS (7 sets, daily range): BP systolic 113–144; BP diastolic 78–98
[2019-08-09] MEDS: IV NORMAL SALINE 1000ML BAG 1,000 ML IV SCH ×2 (05:00→15:00)
[2019-08-09] MEDS: cloNIDine HCL 0.2 MG TABLET PO SCH ×3 (06:00→20:24)
[2019-08-09] MEDS: LACTOBACILLUS RHAMNOSUS GG 1 CAPSULE. PO SCH ×2 (08:37→20:12)
[2019-08-09] MEDS: LACTULOSE 20 GM/30 ML SOLUTION. PO SCH ×3 (08:37→20:21)
--- NOTE | 2019-08-09 08:41 | PDOC ---
Infectious Disease Note Subjective: Subjective 1:1 observation More alert today has some tremors but improving denies any complaints No fever, vomiting or diarrhea cough or sob Vital Signs: Vital Signs Vital Signs Date Time Temp Pulse Resp B/P (MAP) Pulse Ox O2 Delivery O2 Flow Rate FiO2 08/09/19 07:03 98.1 71 16 121/84 (96) 96 Room Air 98.1 Physical Exam: PHYSICAL EXAM GENERAL: alert awake Heent no thrush Neck supple LUNGS: Clear, nonlabored CV: S1 S2 ABD: Nondistended , soft, bowel sounds present EXT: No edema [employer] alert awake, grossly nonfocal, tremors on outstretched hands Medications: Inpatient Meds: Current Medications Medications (Trade) Dose Ordered Sig/Cris Start Time Stop Time Status Last Admin Dose Admin Acetaminophen (Tylenol) 650 mg PRN Q4HRS PRN 08/04/19 20:30 08/05/19 11:41 650 MG Al Hydroxide/Mg Hydroxide (Mylanta Plus Xs) 30 ml PRN DAILY PRN 08/04/19 20:30 Albuterol Sulfate (Ventolin Neb Soln) 2.5 mg PRN Q4HRS PRN 08/04/19 20:30 Azithromycin 250 ml @ 250 mls/hr 1X ONCE 08/04/19 19:30 08/04/19 20:29 DC 08/04/19 19:30 250 MLS/HR Cefepime HCl (Maxipime) 2 gm Q8HRS 08/04/19 22:00 08/06/19 15:03 DC 08/06/19 13:58 2 GM Ceftriaxone Sodium (Rocephin) 1 gm 1X ONCE 08/04/19 19:30 08/04/19 19:31 DC 08/04/19 20:34 1 GM Clonidine HCl (Catapres) 0.2 mg Q8HRS 08/06/19 22:00 08/08/19 20:02 0.2 MG Diphenhydramine HCl (Benadryl) 25 mg PRN Q15MIN PRN 08/06/19 02:30 08/06/19 02:50 25 MG Docusate Sodium (Colace) 100 mg PRN BID PRN 08/04/19 20:30 Enoxaparin Sodium (Lovenox 40mg Syringe) 40 mg Q24H 5/22/20 14:45 UNV Guaifenesin (Robitussin) 200 mg PRN Q4HRS PRN 08/04/19 20:30 Haloperidol Lactate (Haldol Inj) 5 mg PRN Q4HRS PRN 08/06/19 02:30 08/07/19 10:39 5 MG Hydralazine HCl (Apresoline Inj) 10 mg PRN Q4HRS PRN 08/04/19 20:30 08/05/19 13:17 10 MG Lactobacillus Rhamnosus (Culturelle) 1 cap BID 08/05/19 21:00 08/09/19 08:37 1 CAP Lactulose (Lactulose) 20 gm TID 08/08/19 14:00 08/09/19 08:37 20 GM Lorazepam (Ativan Inj) 4 mg PRN Q1HR PRN 08/06/19 03:15 08/07/19 16:23 4 MG Lorazepam (Ativan) 4 mg PRN Q1HR PRN 08/06/19 02:30 Magnesium Sulfate 50 ml @ 25 mls/hr 1X ONCE 08/06/19 20:15 08/06/19 22:14 DC 08/06/19 20:37 25 MLS/HR Metoprolol Tartrate (Lopressor Vial) 5 mg PRN Q5MIN PRN 08/05/19 17:30 08/05/19 17:33 5 MG Multivitamins 10 ml/Thiamine HCl 100 mg/Folic Acid 1 mg/Sodium Chloride 1,011.2 ml @ 0 mls/hr DAILY 08/07/19 09:00 08/08/19 09:38 100 MLS/HR Nicotine (Nicoderm Cq 21mg) 1 patch DAILY 08/05/19 20:30 08/08/19 09:39 1 PATCH Nicotine Polacrilex (Nicorette Gum) 1 each PRN Q1HR PRN 08/08/19 22:00 Ondansetron HCl (Zofran) 4 mg PRN Q4HRS PRN 08/04/19 20:30 Potassium Bicarbonate (Potassium Effervescent Tablet) 20 meq 1X ONCE 08/05/19 09:30 08/05/19 09:31 DC 08/05/19 11:15 20 MEQ Potassium Chloride/Sodium Chloride 1,000 ml @ 75 mls/hr 1X ONCE 08/04/19 21:00 08/05/19 10:19 DC 08/04/19 21:56 75 MLS/HR Potassium Chloride/Water 100 ml @ 50 mls/hr 1X ONCE 08/06/19 22:15 08/07/19 00:14 DC 08/06/19 22:39 50 MLS/HR Sodium Monofluorophosphate (Fleet Adult) 133 ml PRN DAILY PRN 08/04/19 20:30 Sodium Chloride 1,000 ml @ 100 mls/hr Q10H 08/05/19 11:00 08/08/19 09:39 100 MLS/HR Sodium Chloride (Normal Saline Flush) 3 ml QSHIFT PRN 08/04/19 20:30 Thiamine HCl 100 mg/Dextrose 51 ml @ 102 mls/hr DAILY 08/06/19 03:30 08/07/19 09:52 DC 08/06/19 08:05 102 MLS/HR Vancomycin HCl (Vanco Per Pharmacy) 1 each PRN DAILY PRN 08/07/19 08:00 08/08/19 13:00 DC 08/08/19 12:16 1 EACH Vancomycin HCl (Vancomycin Trough Level) 1 each 1X ONCE 08/09/19 08:30 08/09/19 08:31 Cancel Vancomycin HCl 1.25 gm/Sodium Chloride 250 ml @ 167 mls/hr Q12H 08/05/19 12:30 08/06/19 11:47 DC 08/06/19 11:19 167 MLS/HR Vancomycin HCl 1.5 gm/Sodium Chloride 500 ml @ 250 mls/hr Q8H 08/08/19 09:00 08/08/19 09:35 DC Vancomycin HCl 1 gm/Sodium Chloride 250 ml @ 250 mls/hr Q8H 08/07/19 08:00 08/08/19 08:20 DC 08/08/19 00:36 250 MLS/HR Ziprasidone (Geodon Im) 20 mg 1X ONCE 08/06/19 03:30 08/06/19 03:31 DC 08/06/19 04:31 20 MG Labs: Lab Laboratory Tests Test 08/09/19 03:30 Creatinine 0.7 mg/dL (0.7-1.3) Estimated GFR (Cockcroft-Gault) 123.1 Objective: Assessment: Alcohol dependence Alcoholic liver disease Paranoia/encephalopathy, improving History of nausea and vomiting improved Diarrhea present on admission. C. diff & Giardia negative Abnormal liver function test; abnormal ultrasound report, alcoholic liver disease, improving Anemia and thrombocytopenia Lactic acidosis, now resolved. Staph hominis bacteremia 1/4 bottles, likely contaminant from 08/03. Now reported 2 of 4 bottles. Rhabdomyolysis. Hypokalemia. Plan: Plan of Care Monitor off antibiotic Off vancomycin on 08/08/2019 COVID-19 neg, 08/03 Monitor labs and cultures Maintain aspiration precautions Undergoing treatment for alcohol withdrawal Supportive care. D/w nursing ZAK BREEN MD August 09, 2019 08:41
--- NOTE | 2019-08-09 08:49 | PDOC ---
PROGRESS NOTES Assessment Problems Medical Problems: (1) AMS (altered mental status) Status: Acute (2) Cough Status: Acute (3) Hypokalemia Status: Acute (4) Person under investigation for COVID-19 Status: Acute (5) Rhabdomyolysis Status: Acute (6) Sepsis Status: Acute (7) Shortness of breath Status: Acute Alcoholism, hepatic encephalopathy, better, note elevated ammonia level today Rhabdomyolysis, continues to have elevated CPK level Medical issues: fevers, macrocytic anemia with thrombocytopenia, lactic acidosis which resolved, elevated CPK, hypokalemia, transaminitis, hepatomegaly, hepatic steatosis, elevated d-dimer Plan Alcohol withdrawal protocol including sedatives and thiamine. No additional neurological studies such as electroencephalogram or lumbar puncture are required. I admonished the patient to cease drinking alcohol as he has had severe damage to his liver. Discontinue 1:1 nursing Psychiatric assessment team Physical therapy Subjective Feels better Objective Vital Signs Date Time Temp Pulse Resp B/P (MAP) Pulse Ox O2 Delivery O2 Flow Rate FiO2 08/09/19 07:03 98.1 71 16 121/84 (96) 96 Room Air 98.1 Intake and Output 08/09/19 07:00 Intake Total 1800 ml Output Total 3520 ml Balance -1720 ml Intake Oral 1800 ml Output Urine Total 3520 ml # Bowel Movements 3 PHYSICAL EXAM Alert. Oriented to time, place and person. Still seems to be in denial about his alcoholism and liver injury PERRL. EOMI. CN: no focal findings. Muscle tone: normal. Muscle strength: 5/5 DTR: 1+ Plantar reflex: Flexor Gait: not examined in bed. Sensory exam: no abnormal findings. No cerebellar signs elicited. Mild tremulousness Review of Relevant I have reviewed the following items bonnie (where applicable) has been applied. Labs Laboratory Tests Test 08/07/19 11:30 08/07/19 12:35 08/08/19 07:14 08/09/19 03:30 Erythrocyte Sedimentation Rate 57 (0-15) Fibrinogen 702 mg/dL (200-440) Iron Level 53 ug/dL (65-175) Total Iron Binding Capacity 200 ug/dL (250-450) Iron Saturation 27 % (15-34) Hepatitis A IgM Antibody Nonreactive (Nonreactive) Hepatitis B Surface Antigen Nonreactive (Nonreactive) Hepatitis B Core IgM Antibody Nonreactive (Nonreactive) Hepatitis C IgG Antibody Nonreactive (Nonreactive) Lactic Acid Level 0.8 mmol/L (0.4-2.0) White Blood Count 5.6 x10^3/uL (4.0-11.0) Red Blood Count 3.59 x10^6/uL (4.30-5.70) Hemoglobin 12.7 g/dL (13.0-17.5) Hematocrit 37.1 % (39.0-53.0) Mean Corpuscular Volume 103 fL (79-100) Mean Corpuscular Hemoglobin 36 pg (25-35) Mean Corpuscular Hemoglobin Concent 34 g/dL (31-37) Red Cell Distribution Width 12.8 % (11.5-14.5) Platelet Count 152 x10^3/uL (140-400) Neutrophils (%) (Auto) 54 % (31-73) Lymphocytes (%) (Auto) 19 % (24-48) Monocytes (%) (Auto) 19 % (0-9) Eosinophils (%) (Auto) 7 % (0-3) Basophils (%) (Auto) 1 % (0-3) Neutrophils # (Auto) 3.0 x10^3/uL (1.8-7.7) Lymphocytes # (Auto) 1.0 x10^3/uL (1.0-4.8) Monocytes # (Auto) 1.1 x10^3/uL (0.0-1.1) Eosinophils # (Auto) 0.4 x10^3/uL (0.0-0.7) Basophils # (Auto) 0.1 x10^3/uL (0.0-0.2) Sodium Level 139 mmol/L (136-145) Potassium Level 3.2 mmol/L (3.5-5.1) Chloride Level 104 mmol/L (98-107) Carbon Dioxide Level 24 mmol/L (21-32) Anion Gap 11 (6-14) Blood Urea Nitrogen 12 mg/dL (8-26) Creatinine 0.8 mg/dL (0.7-1.3) 0.7 mg/dL (0.7-1.3) Estimated GFR (Cockcroft-Gault) 105.5 123.1 BUN/Creatinine Ratio 15 (6-20) Glucose Level 106 mg/dL (70-99) Calcium Level 8.0 mg/dL (8.5-10.1) Total Bilirubin 0.5 mg/dL (0.2-1.0) Aspartate Amino Transf (AST/SGOT) 97 U/L (15-37) Alanine Aminotransferase (ALT/SGPT) 80 U/L (16-63) Alkaline Phosphatase 79 U/L (46-116) Ammonia 41 mcmol/L (11-34) Creatine Kinase 1660 U/L (39-308) Total Protein 6.7 g/dL (6.4-8.2) Albumin 2.7 g/dL (3.4-5.0) Albumin/Globulin Ratio 0.7 (1.0-1.7) Vancomycin Level Trough 7.7 mcg/mL (10.0-20.0) Vancomycin Last Dose Date 08/08/19 Vancomycin Last Dose Time 0000 HIV (1&2) Antibody Screen Nonreactive (Nonreactive) Laboratory Tests Test 08/09/19 03:30 Creatinine 0.7 mg/dL (0.7-1.3) Estimated GFR (Cockcroft-Gault) 123.1 Microbiology 08/06/19 Blood Culture - Preliminary, Resulted NO GROWTH AFTER 3 DAYS 08/05/19 Fecal Leukocyte Stain - Final, Complete Medications Current Medications Sodium Chloride 1,000 ml @ 1,000 mls/hr 1X ONCE IV Last administered on 08/04/19at 18:40; Start 08/04/19 at 18:00; Stop 08/04/19 at 18:59; Status DC Potassium Bicarbonate (Potassium Effervescent Tablet) 40 meq 1X ONCE PO Last administered on 08/04/19at 19:02; Start 08/04/19 at 18:45; Stop 08/04/19 at 18:47; Status DC Sodium Chloride 1,000 ml @ 1,000 mls/hr 1X ONCE IV Last administered on 08/04/19at 20:35; Start 08/04/19 at 19:30; Stop 08/04/19 at 20:29; Status DC Ondansetron HCl (Zofran) 4 mg PRN Q8HRS PRN IV NAUSEA/VOMITING; Start 08/04/19 at 19:30; Stop 08/04/19 at 20:26; Status DC Acetaminophen (Tylenol) 650 mg PRN Q4HRS PRN PO FEVER > 100.3'F; Start 08/04/19 at 19:30; Stop 08/04/19 at 20:26; Status DC Potassium Chloride/Sodium Chloride 1,000 ml @ 75 mls/hr 1X ONCE IV Last administered on 08/04/19at 21:56; Start 08/04/19 at 21:00; Stop 08/05/19 at 10:19; Status DC Sodium Chloride 1,000 ml @ 1,000 mls/hr 1X ONCE IV Last administered on 08/04/19at 22:01; Start 08/04/19 at 19:30; Stop 08/04/19 at 20:29; Status DC Ceftriaxone Sodium (Rocephin) 1 gm 1X ONCE IVP Last administered on 08/04/19at 20:34; Start 08/04/19 at 19:30; Stop 08/04/19 at 19:31; Status DC Azithromycin 250 ml @ 250 mls/hr 1X ONCE IV Last administered on 08/04/19at 19:30; Start 08/04/19 at 19:30; Stop 08/04/19 at 20:29; Status DC Cefepime HCl (Maxipime) 1 gm Q8HRS IVP ; Start 08/04/19 at 22:00; Stop 08/04/19 at 20:18; Status DC Sodium Chloride 1,000 ml @ 2,340 mls/hr Q26M IV ; Start 08/04/19 at 20:30; Stop 08/04/19 at 21:30; Status DC Sodium Chloride 500 ml @ 1,000 mls/hr PRN Q30MIN PRN IV SEE COMMENTS; Start 08/04/19 at 21:30 Cefepime HCl (Maxipime) 2 gm Q8HRS IVP Last administered on 08/06/19at 13:58; Start 08/04/19 at 22:00; Stop 08/06/19 at 15:03; Status DC Hydralazine HCl (Apresoline Inj) 10 mg PRN Q4HRS PRN IVP ELEVATED BP, SEE COMMENTS Last administered on 08/05/19at 13:17; Start 08/04/19 at 20:30 Sodium Chloride (Normal Saline Flush) 3 ml QSHIFT PRN IV AFTER MEDS AND BLOOD DRAWS; Start 08/04/19 at 20:30 Sodium Chloride 1,000 ml @ 100 mls/hr Q10H IV Last administered on 08/08/19 09:39; Start 08/05/19 at 11:00 Ondansetron HCl (Zofran) 4 mg PRN Q4HRS PRN IV NAUSEA/VOMITING; Start 08/04/19 at 20:30 Acetaminophen (Tylenol) 650 mg PRN Q4HRS PRN PO TEMP OVER 100.4F OR MILD PAIN Last administered on 08/05/19at 11:41; Start 08/04/19 at 20:30 Al Hydroxide/Mg Hydroxide (Mylanta Plus Xs) 30 ml PRN DAILY PRN PO HEARTBURN / GAS; Start 08/04/19 at 20:30 Clonidine HCl (Catapres) 0.1 mg PRN Q6HRS PRN PO SBP>160 OR DBP>90 Last administered on 08/05/19at 11:41; Start 08/04/19 at 20:30 Sodium Monofluorophosphate (Fleet Adult) 133 ml PRN DAILY PRN MA CONSTIPATION; Start 08/04/19 at 20:30 Docusate Sodium (Colace) 100 mg PRN BID PRN PO HARD STOOLS; Start 08/04/19 at 20:30 Albuterol Sulfate (Ventolin Neb Soln) 2.5 mg PRN Q4HRS PRN NEB SHORTNESS OF BREATH; Start 08/04/19 at 20:30 Guaifenesin (Robitussin) 200 mg PRN Q4HRS PRN PO COUGH; Start 08/04/19 at 20:30 Enoxaparin Sodium (Lovenox 40mg Syringe) 40 mg Q24H SQ Last administered on 08/08/19at 20:01; Start 08/04/19 at 21:00 Vancomycin HCl 250 ml @ 250 mls/hr 1X ONCE IV Last administered on 08/05/19at 00:57; Start 08/04/19 at 21:00; Stop 08/04/19 at 21:59; Status DC Potassium Bicarbonate (Potassium Effervescent Tablet) 40 meq 1X ONCE PO Last administered on 08/05/19at 09:15; Start 08/05/19 at 07:30; Stop 08/05/19 at 07:31; Status DC Potassium Bicarbonate (Potassium Effervescent Tablet) 20 meq 1X ONCE PO Last administered on 08/05/19at 11:15; Start 08/05/19 at 09:30; Stop 08/05/19 at 09:31; Status DC Vancomycin HCl 1 gm/Sodium Chloride 250 ml @ 250 mls/hr Q12H IV ; Start 08/05/19 at 12:00; Status UNV Vancomycin HCl (Vanco Per Pharmacy) 1 each PRN DAILY PRN MC SEE COMMENTS Last administered on 08/06/19at 11:32; Start 08/05/19 at 12:00; Stop 08/06/19 at 11:49; Status DC Vancomycin HCl 1.25 gm/Sodium Chloride 250 ml @ 167 mls/hr Q12H IV ; Start 08/05/19 at 12:30; Stop 08/05/19 at 12:01; Status DC Vancomycin HCl (Vancomycin Trough Level) 1 each 1X ONCE MC ; Start 08/07/19 at 00:00; Stop 08/06/19 at 11:48; Status DC Vancomycin HCl 1.25 gm/Sodium Chloride 250 ml @ 167 mls/hr Q12H IV Last administered on 08/06/19at 11:19; Start 08/05/19 at 12:30; Stop 08/06/19 at 11:47; Status DC Enoxaparin Sodium (Lovenox 40mg Syringe) 40 mg Q24H SQ ; Start 08/05/19 at 14:45; Status UNV Lorazepam (Ativan) 1 mg PRN Q8HRS PRN PO ANXIETY / AGITATION Last administered on 08/05/19at 15:15; Start 08/05/19 at 15:15; Stop 08/05/19 at 20:06; Status DC Lactobacillus Rhamnosus (Culturelle) 1 cap BID PO Last administered on at 08:37; Start 08/05/19 at 21:00 Metoprolol Tartrate (Lopressor Vial) 5 mg PRN Q5MIN PRN IVP TACHYCARDIA Last administered on 08/05/19at 17:33; Start 08/05/19 at 17:30 Lorazepam (Ativan) 1 mg PRN Q4HRS PRN PO ANXIETY / AGITATION Last administered on 08/08/19at 20:02; Start 08/05/19 at 20:15 Nicotine (Nicoderm Cq 21mg) 1 patch DAILY TD Last administered on 08/08/19at 09:39; Start 08/05/19 at 20:30 Lorazepam (Ativan Inj) 2 mg PRN Q1HR PRN IV For CIWA 8-14 Last administered on 08/06/19at 02:50; Start 08/05/19 at 22:30 Lorazepam (Ativan) 4 mg PRN Q1HR PRN PO For CIWA 8-14; Start 08/06/19 at 02:30 Haloperidol Lactate (Haldol Inj) 5 mg PRN Q4HRS PRN IVP Hallucinatns,Confusn,Delirium Last administered on 08/07/19at 10:39; Start 08/06/19 at 02:30 Diphenhydramine HCl (Benadryl) 25 mg PRN Q15MIN PRN IVP EPS symptoms 2'Haldol admin Last administered on 08/06/19at 02:50; Start 08/06/19 at 02:30 Ziprasidone (Geodon Im) 20 mg 1X ONCE IM Last administered on 08/06/19at 04:31; Start 08/06/19 at 03:30; Stop 08/06/19 at 03:31; Status DC Thiamine HCl 100 mg/Dextrose 51 ml @ 102 mls/hr DAILY IV Last administered on 08/06/19at 08:05; Start 08/06/19 at 03:30; Stop 08/07/19 at 09:52; Status DC Lorazepam (Ativan Inj) 4 mg PRN Q1HR PRN IV For CIWA 15 or greater Last admini stered on 08/07/19at 16:23; Start 08/06/19 at 03:15 Potassium Chloride/Water 100 ml @ 50 mls/hr 1X ONCE IV Last administered on 08/06/19at 20:38; Start 08/06/19 at 20:15; Stop 08/06/19 at 22:14; Status DC Potassium Chloride/Water 100 ml @ 50 mls/hr 1X ONCE IV Last administered on 08/06/19at 22:39; Start 08/06/19 at 22:15; Stop 08/07/19 at 00:14; Status DC Magnesium Sulfate 50 ml @ 25 mls/hr 1X ONCE IV Last administered on 08/06/19at 20:37; Start 08/06/19 at 20:15; Stop 08/06/19 at 22:14; Status DC Clonidine HCl (Catapres) 0.2 mg Q8HRS PO Last administered on 08/08/19at 20:02; Start 08/06/19 at 22:00 Multivitamins 10 ml/Thiamine HCl 100 mg/Folic Acid 1 mg/Sodium Chloride 1,011.2 ml @ 0 mls/hr DAILY IV Last administered on 08/08/19at 09:38; Start 08/07/19 at 09:00 Vancomycin HCl (Vanco Per Pharmacy) 1 each PRN DAILY PRN MC SEE COMMENTS Last administered on 08/08/19at 12:16; Start 08/07/19 at 08:00; Stop 08/08/19 at 13:00; Status DC Vancomycin HCl 1 gm/Sodium Chloride 250 ml @ 250 mls/hr Q8H IV Last a dministered on 08/08/19at 00:36; Start 08/07/19 at 08:00; Stop 08/08/19 at 08:20; Status DC Vancomycin HCl (Vancomycin Trough Level) 1 each 1X ONCE MC ; Start 08/08/19 at 07:30; Stop 08/08/19 at 07:31; Status DC Vancomycin HCl 1.5 gm/Sodium Chloride 500 ml @ 250 mls/hr Q8H IV ; Start 08/08/19 at 09:00; Stop 08/08/19 at 09:35; Status DC Vancomycin HCl (Vancomycin Trough Level) 1 each 1X ONCE MC ; Start 08/09/19 at 08:30; Stop 08/09/19 at 08:31; Status Cancel Lactulose (Lactulose) 20 gm TID PO Last administered on 08/09/19at 08:37; Start 08/08/19 at 14:00 Nicotine Polacrilex (Nicorette Gum) 1 each PRN Q1HR PRN BC SMOKING CESSATION; Start 08/08/19 at 22:00 Vitals/I & O Vital Sign - Last 24 Hours 08/08/19 08/08/19 08/08/19 08/08/19 11:00 14:54 15:00 18:50 Temp 97.8 97.9 98.8 97.8 97.9 98.8 Pulse 98 99 99 84 Resp 18 18 18 B/P (MAP) 161/109 (126) 169/89 169/89 (115) 146/102 (117) Pulse Ox 98 99 98 O2 Delivery Room Air Room Air Room Air 08/08/19 08/08/19 08/08/19 08/09/19 20:00 20:02 22:18 02:53 Temp 98.3 98.1 98.3 98.1 Pulse 84 80 78 Resp 18 18 B/P (MAP) 146/102 130/93 (105) 113/78 (90) Pulse Ox 98 98 O2 Delivery Room Air Room Air Room Air 08/09/19 08/09/19 05:15 07:03 Temp 98.1 98.1 Pulse 78 71 Resp 16 B/P (MAP) 127/84 (98) 121/84 (96) Pulse Ox 96 O2 Delivery Room Air Intake and Output 08/08/19 08/08/19 08/09/19 15:00 23:00 07:00 Intake Total 1200 ml 600 ml 0 ml Output Total 1120 ml 1500 ml 900 ml Balance 80 ml -900 ml -900 ml DONAVON JENNINGS MD August 09, 2019 08:49
[2019-08-09] MEDS: MULTIVIT INFUSN,ADULT 4,VIT K 10 ML, THIAMINE INJ 100 MG, FOLIC ACID INJ 1 MG in IV NOR... IV SCH (09:45)
[2019-08-09] MEDS: NICOTINE 21MG PATCH. TD SCH (09:45)
--- NOTE | 2019-08-09 09:51 | PDOC ---
PROGRESS NOTES Chief Complaint Chief Complaint IMPRESSION Altered mental status hx severe alcohol abuse ACUTE METABOLIC ENCEPHALOPATHY Positive blood culture? contaminent Febrile illness etiology undetermined his COVID 19 is negative. Blood culture 1/4 bottles is positive for Gram-positive cocci in clusters.SECOND BOTTLE OF THIS SET IS NOW POSITIVE, ALSO WITh GRAM POSITIVE COCCI IN CLUSTERS. Nausea, vomiting, diarrhea. seems to have subsided, will continue to monitor Macrocytic anemia WITH THROMBOCYTOPENIA elevated lactic acid which is resolved, porbably secondary to emesis and poor oral intake with moderate to severe dehydration Elevated CPK secondary to dehydration and retching effort Hypokalemia secondary to emesis and diarrhea transaminitis sec to ETOH likely Hepatomegaly and hepatic steatosis. ELEVATED D-DIMER 08/06 drinks 2 pints a day of vodka, denies tick bites, or exposure to deers, rabbits, has not hunted since he was a child Plan: replace electrolytes, banana bag Supportive measures Follow results of blood cultures cont iv vancomycin IV fluid resuscitation 1:1 nursing DVT prophylaxis with Lovenox GI CONSULT NEUROLOGY CONSULT CARDIOLOGY CONSULT ECHO CPK B12 38 min pt exam, chart review, > 50% of time spent with exam, chart review, pt care coordination History of Present Illness History of Present Illness Mr Raymond is a 43 yo M w/ no PMHx comes to the ED with multiple complaints. He had not been feeling well for the last 3 weeks with nausea, vomiting, diarrhea, cough, shortness of breath, some intermittent fever and chills. He has been quarantined at home for about 3 weeks and has been wondering that he may have caught up something at work. He feels weak. He was found to have a fever of 99.6. White count of 10, hemoglobin of 14.2, hematocrit 42, platelets of 104. Potassium of 2.9, sodium of 137, creatinine of 1.1. Lactate of 14.5, ferritin 1689, bilirubin 0.8, AST 186, ALT 128, alkaline phosphatase 106. CK 1184, albumin 3.5, lipase 359. Procalcitonin 0.23. Ammonia 32. The patient got a dose of azithromycin, was started on cefepime. ID consult has been requested for antibiotic management. Neurology for confusion. Blood culture 1/4 bottles is positive for Gram-positive cocci in clusters. The patient underwent a head CT for altered mental status, which did not show any acute intracranial process. Chest x-ray showed no acute cardiopulmonary process. Abdominal imaging concerning for chronic pancreatitis and liver disease. 08/06: No acute events reported overnight, case discussed with nursing staff patient in no acute distress no complaints during my visit. 08/07: Bowel movement x2 this morning. More alert today. He is shaking, weak. He tells me in the same sentence he was drinking 2 pints per day of hard alcohol, then tells me it has been 2 weeks, then notes it has been a month since he has had a drink. He notes his appetite has improved. Afebrile. Afebrile overnight. More alert today. No shaking. Eating and drinking nearly 100%. No cough or SOB. Feeling stronger today. K 3.3. Mg 1.8. Vitals Vitals Vital Signs Date Time Temp Pulse Resp B/P (MAP) Pulse Ox O2 Delivery O2 Flow Rate FiO2 08/09/19 07:03 98.1 71 16 121/84 (96) 96 Room Air 98.1 Physical Exam Physical Exam GENERAL: Resting quietly, thinks he is at home, known current year LUNGS: Clear, nonlabored CV: S1 S2 ABD: Nondistended EXT: No edema + confusion and hallucination General: mild distress Heart: Other (Regular rhythm rate of 96) Lungs: Clear Abdomen: Normal bowel sounds, Soft Extremities: No cyanosis, No edema, No tenderness/swelling Skin: No rashes Labs LABS Laboratory Tests Test 08/09/19 03:30 Creatinine 0.7 mg/dL (0.7-1.3) Estimated GFR (Cockcroft-Gault) 123.1 Assessment and Plan Assessmemt and Plan Problems Medical Problems: (1) AMS (altered mental status) Status: Acute (2) Cough Status: Acute (3) Hypokalemia Status: Acute (4) Person under investigation for COVID-19 Status: Acute (5) Rhabdomyolysis Status: Acute (6) Sepsis Status: Acute (7) Shortness of breath Status: Acute Comment Review of Relevant I have reviewed the following items bonnie (where applicable) has been applied. Labs Laboratory Tests Test 08/07/19 11:30 08/07/19 12:35 08/08/19 07:14 08/09/19 03:30 Erythrocyte Sedimentation Rate 57 (0-15) Fibrinogen 702 mg/dL (200-440) Iron Level 53 ug/dL (65-175) Total Iron Binding Capacity 200 ug/dL (250-450) Iron Saturation 27 % (15-34) Hepatitis A IgM Antibody Nonreactive (Nonreactive) Hepatitis B Surface Antigen Nonreactive (Nonreactive) Hepatitis B Core IgM Antibody Nonreactive (Nonreactive) Hepatitis C IgG Antibody Nonreactive (Nonreactive) Lactic Acid Level 0.8 mmol/L (0.4-2.0) White Blood Count 5.6 x10^3/uL (4.0-11.0) Red Blood Count 3.59 x10^6/uL (4.30-5.70) Hemoglobin 12.7 g/dL (13.0-17.5) Hematocrit 37.1 % (39.0-53.0) Mean Corpuscular Volume 103 fL (79-100) Mean Corpuscular Hemoglobin 36 pg (25-35) Mean Corpuscular Hemoglobin Concent 34 g/dL (31-37) Red Cell Distribution Width 12.8 % (11.5-14.5) Platelet Count 152 x10^3/uL (140-400) Neutrophils (%) (Auto) 54 % (31-73) Lymphocytes (%) (Auto) 19 % (24-48) Monocytes (%) (Auto) 19 % (0-9) Eosinophils (%) (Auto) 7 % (0-3) Basophils (%) (Auto) 1 % (0-3) Neutrophils # (Auto) 3.0 x10^3/uL (1.8-7.7) Lymphocytes # (Auto) 1.0 x10^3/uL (1.0-4.8) Monocytes # (Auto) 1.1 x10^3/uL (0.0-1.1) Eosinophils # (Auto) 0.4 x10^3/uL (0.0-0.7) Basophils # (Auto) 0.1 x10^3/uL (0.0-0.2) Sodium Level 139 mmol/L (136-145) Potassium Level 3.2 mmol/L (3.5-5.1) Chloride Level 104 mmol/L (98-107) Carbon Dioxide Level 24 mmol/L (21-32) Anion Gap 11 (6-14) Blood Urea Nitrogen 12 mg/dL (8-26) Creatinine 0.8 mg/dL (0.7-1.3) 0.7 mg/dL (0.7-1.3) Estimated GFR (Cockcroft-Gault) 105.5 123.1 BUN/Creatinine Ratio 15 (6-20) Glucose Level 106 mg/dL (70-99) Calcium Level 8.0 mg/dL (8.5-10.1) Total Bilirubin 0.5 mg/dL (0.2-1.0) Aspartate Amino Transf (AST/SGOT) 97 U/L (15-37) Alanine Aminotransferase (ALT/SGPT) 80 U/L (16-63) Alkaline Phosphatase 79 U/L (46-116) Ammonia 41 mcmol/L (11-34) Creatine Kinase 1660 U/L (39-308) Total Protein 6.7 g/dL (6.4-8.2) Albumin 2.7 g/dL (3.4-5.0) Albumin/Globulin Ratio 0.7 (1.0-1.7) Vancomycin Level Trough 7.7 mcg/mL (10.0-20.0) Vancomycin Last Dose Date 08/08/19 Vancomycin Last Dose Time 0000 HIV (1&2) Antibody Screen Nonreactive (Nonreactive) Laboratory Tests Test 08/09/19 03:30 Creatinine 0.7 mg/dL (0.7-1.3) Estimated GFR (Cockcroft-Gault) 123.1 Microbiology 08/06/19 Blood Culture - Preliminary, Resulted NO GROWTH AFTER 3 DAYS 08/05/19 Fecal Leukocyte Stain - Final, Complete Medications Current Medications Sodium Chloride 1,000 ml @ 1,000 mls/hr 1X ONCE IV Last administered on 08/04/19at 18:40; Start 08/04/19 at 18:00; Stop 08/04/19 at 18:59; Status DC Potassium Bicarbonate (Potassium Effervescent Tablet) 40 meq 1X ONCE PO Last administered on 08/04/19at 19:02; Start 08/04/19 at 18:45; Stop 08/04/19 at 18:47; Status DC Sodium Chloride 1,000 ml @ 1,000 mls/hr 1X ONCE IV Last administered on 08/04/19at 20:35; Start 08/04/19 at 19:30; Stop 08/04/19 at 20:29; Status DC Ondansetron HCl (Zofran) 4 mg PRN Q8HRS PRN IV NAUSEA/VOMITING; Start 08/04/19 at 19:30; Stop 08/04/19 at 20:26; Status DC Acetaminophen (Tylenol) 650 mg PRN Q4HRS PRN PO FEVER > 100.3'F; Start 08/04/19 at 19:30; Stop 08/04/19 at 20:26; Status DC Potassium Chloride/Sodium Chloride 1,000 ml @ 75 mls/hr 1X ONCE IV Last administered on 08/04/19at 21:56; Start 08/04/19 at 21:00; Stop 08/05/19 at 10:19; Status DC Sodium Chloride 1,000 ml @ 1,000 mls/hr 1X ONCE IV Last administered on 08/04/19at 22:01; Start 08/04/19 at 19:30; Stop 08/04/19 at 20:29; Status DC Ceftriaxone Sodium (Rocephin) 1 gm 1X ONCE IVP Last administered on 08/04/19at 20:34; Start 08/04/19 at 19:30; Stop 08/04/19 at 19:31; Status DC Azithromycin 250 ml @ 250 mls/hr 1X ONCE IV Last administered on 08/04/19at 19:30; Start 08/04/19 at 19:30; Stop 08/04/19 at 20:29; Status DC Cefepime HCl (Maxipime) 1 gm Q8HRS IVP ; Start 08/04/19 at 22:00; Stop 08/04/19 at 20:18; Status DC Sodium Chloride 1,000 ml @ 2,340 mls/hr Q26M IV ; Start 08/04/19 at 20:30; Stop 08/04/19 at 21:30; Status DC Sodium Chloride 500 ml @ 1,000 mls/hr PRN Q30MIN PRN IV SEE COMMENTS; Start 08/04/19 at 21:30 Cefepime HCl (Maxipime) 2 gm Q8HRS IVP Last administered on 08/06/19at 13:58; Start 08/04/19 at 22:00; Stop 08/06/19 at 15:03; Status DC Hydralazine HCl (Apresoline Inj) 10 mg PRN Q4HRS PRN IVP ELEVATED BP, SEE COMMENTS Last administered on 08/05/19 13:17; Start 08/04/19 at 20:30 Sodium Chloride (Normal Saline Flush) 3 ml QSHIFT PRN IV AFTER MEDS AND BLOOD DRAWS; Start 08/04/19 at 20:30 Sodium Chloride 1,000 ml @ 100 mls/hr Q10H IV Last administered on 08/08/19 09:39; Start 08/05/19 at 11:00 Ondansetron HCl (Zofran) 4 mg PRN Q4HRS PRN IV NAUSEA/VOMITING; Start 08/04/19 at 20:30 Acetaminophen (Tylenol) 650 mg PRN Q4HRS PRN PO TEMP OVER 100.4F OR MILD PAIN Last administered on 08/05/19 11:41; Start 08/04/19 at 20:30 Al Hydroxide/Mg Hydroxide (Mylanta Plus Xs) 30 ml PRN DAILY PRN PO HEARTBURN / GAS; Start 08/04/19 at 20:30 Clonidine HCl (Catapres) 0.1 mg PRN Q6HRS PRN PO SBP>160 OR DBP>90 Last administered on 08/05/19at 11:41; Start 08/04/19 at 20:30 Sodium Monofluorophosphate (Fleet Adult) [address] CONSTIPATION; Start 08/04/19 at 20:30 Docusate Sodium (Colace) 100 mg PRN BID PRN PO HARD STOOLS; Start 08/04/19 at 20:30 Albuterol Sulfate (Ventolin Neb Soln) 2.5 mg PRN Q4HRS PRN NEB SHORTNESS OF BREATH; Start 08/04/19 at 20:30 Guaifenesin (Robitussin) 200 mg PRN Q4HRS PRN PO COUGH; Start 08/04/19 at 20:30 Enoxaparin Sodium (Lovenox 40mg Syringe) 40 mg Q24H SQ Last administered on 08/08/19 20:01; Start 08/04/19 at 21:00 Vancomycin HCl 250 ml @ 250 mls/hr 1X ONCE IV Last administered on 08/05/19 00:57; Start 08/04/19 at 21:00; Stop 08/04/19 at 21:59; Status DC Potassium Bicarbonate (Potassium Effervescent Tablet) 40 meq 1X ONCE PO Last administered on 5/22/20at 09:15; Start 08/05/19 at 07:30; Stop 08/05/19 at 07:31; Status DC Potassium Bicarbonate (Potassium Effervescent Tablet) 20 meq 1X ONCE PO Last administered on 08/05/19at 11:15; Start 08/05/19 at 09:30; Stop 08/05/19 at 09:31; Status DC Vancomycin HCl 1 gm/Sodium Chloride 250 ml @ 250 mls/hr Q12H IV ; Start 08/05/19 at 12:00; Status UNV Vancomycin HCl (Vanco Per Pharmacy) 1 each PRN DAILY PRN MC SEE COMMENTS Last administered on 08/06/19at 11:32; Start 08/05/19 at 12:00; Stop 08/06/19 at 11:49; Status DC Vancomycin HCl 1.25 gm/Sodium Chloride 250 ml @ 167 mls/hr Q12H IV ; Start 08/05/19 at 12:30; Stop 08/05/19 at 12:01; Status DC Vancomycin HCl (Vancomycin Trough Level) 1 each 1X ONCE MC ; Start 08/07/19 at 00:00; Stop 08/06/19 at 11:48; Status DC Vancomycin HCl 1.25 gm/Sodium Chloride 250 ml @ 167 mls/hr Q12H IV Last administered on 08/06/19at 11:19; Start 08/05/19 at 12:30; Stop 08/06/19 at 11:47; Status DC Enoxaparin Sodium (Lovenox 40mg Syringe) 40 mg Q24H SQ ; Start 08/05/19 at 14:45; Status UNV Lorazepam (Ativan) 1 mg PRN Q8HRS PRN PO ANXIETY / AGITATION Last administered on 08/05/19at 15:15; Start 08/05/19 at 15:15; Stop 08/05/19 at 20:06; Status DC Lactobacillus Rhamnosus (Culturelle) 1 cap BID PO Last administered on 08/08at 08:37; Start 08/05/19 at 21:00 Metoprolol Tartrate (Lopressor Vial) 5 mg PRN Q5MIN PRN IVP TACHYCARDIA Last administered on 08/05/19at 17:33; Start 08/05/19 at 17:30 Lorazepam (Ativan) 1 mg PRN Q4HRS PRN PO ANXIETY / AGITATION Last administered on 08/08/19at 20:02; Start 08/05/19 at 20:15 Nicotine (Nicoderm Cq 21mg) 1 patch DAILY TD Last administered on 08/09/19at 09:45; Start 08/05/19 at 20:30 Lorazepam (Ativan Inj) 2 mg PRN Q1HR PRN IV For CIWA 8-14 Last administered on 08/06/19at 02:50; Start 08/05/19 at 22:30 Lorazepam (Ativan) 4 mg PRN Q1HR PRN PO For CIWA 8-14; Start 08/06/19 at 02:30 Haloperidol Lactate (Haldol Inj) 5 mg PRN Q4HRS PRN IVP Hallucinatns,Confusn,Delirium Last administered on 08/07/19at 10:39; Start 08/06/19 at 02:30 Diphenhydramine HCl (Benadryl) 25 mg PRN Q15MIN PRN IVP EPS symptoms 2'Haldol admin Last administered on 08/06/19at 02:50; Start 08/06/19 at 02:30 Ziprasidone (Geodon Im) 20 mg 1X ONCE IM Last administered on 08/06/19at 04:31; Start 08/06/19 at 03:30; Stop 08/06/19 at 03:31; Status DC Thiamine HCl 100 mg/Dextrose 51 ml @ 102 mls/hr DAILY IV Last administered on 08/06/19at 08:05; Start 08/06/19 at 03:30; Stop 08/07/19 at 09:52; Status DC Lorazepam (Ativan Inj) 4 mg PRN Q1HR PRN IV For CIWA 15 or greater Last administered on 08/07/19at 16:23; Start 08/06/19 at 03:15 Potassium Chloride/Water 100 ml @ 50 mls/hr 1X ONCE IV Last administered on 08/06/19at 20:38; Start 08/06/19 at 20:15; Stop 08/06/19 at 22:14; Status DC Potassium Chloride/Water 100 ml @ 50 mls/hr 1X ONCE IV Last administered on 08/06/19at 22:39; Start 08/06/19 at 22:15; Stop 08/07/19 at 00:14; Status DC Magnesium Sulfate 50 ml @ 25 mls/hr 1X ONCE IV Last administered on 08/06/19at 20:37; Start 08/06/19 at 20:15; Stop 08/06/19 at 22:14; Status DC Clonidine HCl (Catapres) 0.2 mg Q8HRS PO Last administered on 08/08/19at 20:02; Start 08/06/19 at 22:00 Multivitamins 10 ml/Thiamine HCl 100 mg/Folic Acid 1 mg/Sodium Chloride 1,011.2 ml @ 0 mls/hr DAILY IV Last administered on 08/09/19at 09:45; Start 08/07/19 at 09:00 Vancomycin HCl (Vanco Per Pharmacy) 1 each PRN DAILY PRN MC SEE COMMENTS Last administered on 08/08/19at 12:16; Start 08/07/19 at 08:00; Stop 08/08/19 at 13:00; Status DC Vancomycin HCl 1 gm/Sodium Chloride 250 ml @ 250 mls/hr Q8H IV Last adm inistered on 08/08/19at 00:36; Start 08/07/19 at 08:00; Stop 08/08/19 at 08:20; Status DC Vancomycin HCl (Vancomycin Trough Level) 1 each 1X ONCE MC ; Start 08/08/19 at 07:30; Stop 08/08/19 at 07:31; Status DC Vancomycin HCl 1.5 gm/Sodium Chloride 500 ml @ 250 mls/hr Q8H IV ; Start 08/08/19 at 09:00; Stop 08/08/19 at 09:35; Status DC Vancomycin HCl (Vancomycin Trough Level) 1 each 1X ONCE MC ; Start 08/09/19 at 08:30; Stop 08/09/19 at 08:31; Status Cancel Lactulose (Lactulose) 20 gm TID PO Last administered on 08/09/19at 08:37; Start 08/08/19 at 14:00 Nicotine Polacrilex (Nicorette Gum) 1 each PRN Q1HR PRN BC SMOKING CESSATION; Start 08/08/19 at 22:00 Vitals/I & O Vital Sign - Last 24 Hours 08/08/19 08/08/19 08/08/19 08/08/19 11:00 14:54 15:00 18:50 Temp 97.8 97.9 98.8 97.8 97.9 98.8 Pulse 98 99 99 84 Resp 18 18 18 B/P (MAP) 161/109 (126) 169/89 169/89 (115) 146/102 (117) Pulse Ox 98 99 98 O2 Delivery Room Air Room Air Room Air 08/08/19 08/08/19 08/08/19 08/09/19 20:00 20:02 22:18 02:53 Temp 98.3 98.1 98.3 98.1 Pulse 84 80 78 Resp 18 18 B/P (MAP) 146/102 130/93 (105) 113/78 (90) Pulse Ox 98 98 O2 Delivery Room Air Room Air Room Air 08/09/19 08/09/19 05:15 07:03 Temp 98.1 98.1 Pulse 78 71 Resp 16 B/P (MAP) 127/84 (98) 121/84 (96) Pulse Ox 96 O2 Delivery Room Air Intake and Output 08/08/19 08/08/19 08/09/19 15:00 23:00 07:00 Intake Total 1200 ml 600 ml 0 ml Output Total 1120 ml 1500 ml 900 ml Balance 80 ml -900 ml -900 ml JERRY ACEVES MD August 09, 2019 09:51
[2019-08-09 10:09] LABS: CALCIUM 7.9 mg/dL (8.5-10.1); CREATININE 0.7 mg/dL (0.7-1.3); GFR 123.1; POTASSIUM 3.3 mmol/L (3.5-5.1)
--- NOTE | 2019-08-09 11:13 | PDOC ---
G I PROGRESS NOTE Subjective No GI complaints. Doesn't think he drinks that much. Physical Exam Lungs clear. RRR Abdomen soft, not tender. Review of Relevant I have reviewed the following items bonnie (where applicable) has been applied. Labs Laboratory Tests Test 08/07/19 11:30 08/07/19 12:35 08/08/19 07:14 08/09/19 03:30 Erythrocyte Sedimentation Rate 57 (0-15) Fibrinogen 702 mg/dL (200-440) Iron Level 53 ug/dL (65-175) Total Iron Binding Capacity 200 ug/dL (250-450) Iron Saturation 27 % (15-34) Hepatitis A IgM Antibody Nonreactive (Nonreactive) Hepatitis B Surface Antigen Nonreactive (Nonreactive) Hepatitis B Core IgM Antibody Nonreactive (Nonreactive) Hepatitis C IgG Antibody Nonreactive (Nonreactive) Lactic Acid Level 0.8 mmol/L (0.4-2.0) White Blood Count 5.6 x10^3/uL (4.0-11.0) Red Blood Count 3.59 x10^6/uL (4.30-5.70) Hemoglobin 12.7 g/dL (13.0-17.5) Hematocrit 37.1 % (39.0-53.0) Mean Corpuscular Volume 103 fL (79-100) Mean Corpuscular Hemoglobin 36 pg (25-35) Mean Corpuscular Hemoglobin Concent 34 g/dL (31-37) Red Cell Distribution Width 12.8 % (11.5-14.5) Platelet Count 152 x10^3/uL (140-400) Neutrophils (%) (Auto) 54 % (31-73) Lymphocytes (%) (Auto) 19 % (24-48) Monocytes (%) (Auto) 19 % (0-9) Eosinophils (%) (Auto) 7 % (0-3) Basophils (%) (Auto) 1 % (0-3) Neutrophils # (Auto) 3.0 x10^3/uL (1.8-7.7) Lymphocytes # (Auto) 1.0 x10^3/uL (1.0-4.8) Monocytes # (Auto) 1.1 x10^3/uL (0.0-1.1) Eosinophils # (Auto) 0.4 x10^3/uL (0.0-0.7) Basophils # (Auto) 0.1 x10^3/uL (0.0-0.2) Sodium Level 139 mmol/L (136-145) 140 mmol/L (136-145) Potassium Level 3.2 mmol/L (3.5-5.1) 3.3 mmol/L (3.5-5.1) Chloride Level 104 mmol/L (98-107) 104 mmol/L (98-107) Carbon Dioxide Level 24 mmol/L (21-32) 25 mmol/L (21-32) Anion Gap 11 (6-14) 11 (6-14) Blood Urea Nitrogen 12 mg/dL (8-26) 7 mg/dL (8-26) Creatinine 0.8 mg/dL (0.7-1.3) 0.7 mg/dL (0.7-1.3) Estimated GFR (Cockcroft-Gault) 105.5 123.1 BUN/Creatinine Ratio 15 (6-20) Glucose Level 106 mg/dL (70-99) 100 mg/dL (70-99) Calcium Level 8.0 mg/dL (8.5-10.1) 7.9 mg/dL (8.5-10.1) Total Bilirubin 0.5 mg/dL (0.2-1.0) Aspartate Amino Transf (AST/SGOT) 97 U/L (15-37) Alanine Aminotransferase (ALT/SGPT) 80 U/L (16-63) Alkaline Phosphatase 79 U/L (46-116) Ammonia 41 mcmol/L (11-34) Creatine Kinase 1660 U/L (39-308) Total Protein 6.7 g/dL (6.4-8.2) Albumin 2.7 g/dL (3.4-5.0) Albumin/Globulin Ratio 0.7 (1.0-1.7) Vancomycin Level Trough 7.7 mcg/mL (10.0-20.0) Vancomycin Last Dose Date 08/08/19 Vancomycin Last Dose Time 0000 HIV (1&2) Antibody Screen Nonreactive (Nonreactive) Magnesium Level 1.8 mg/dL (1.8-2.4) Laboratory Tests Test 08/09/19 03:30 Sodium Level 140 mmol/L (136-145) Potassium Level 3.3 mmol/L (3.5-5.1) Chloride Level 104 mmol/L (98-107) Carbon Dioxide Level 25 mmol/L (21-32) Anion Gap 11 (6-14) Blood Urea Nitrogen 7 mg/dL (8-26) Creatinine 0.7 mg/dL (0.7-1.3) Estimated GFR (Cockcroft-Gault) 123.1 Glucose Level 100 mg/dL (70-99) Calcium Level 7.9 mg/dL (8.5-10.1) Magnesium Level 1.8 mg/dL (1.8-2.4) Microbiology 08/06/19 Blood Culture - Preliminary, Resulted NO GROWTH AFTER 3 DAYS 08/05/19 Fecal Leukocyte Stain - Final, Complete Hepatitis markers negative. Iron profile c/w ACD. Vitals/I & O Vital Sign - Last 24 Hours 08/08/19 08/08/19 08/08/19 08/08/19 14:54 15:00 18:50 20:00 Temp 97.9 98.8 97.9 98.8 Pulse 99 99 84 Resp 18 18 B/P (MAP) 169/89 169/89 (115) 146/102 (117) Pulse Ox 99 98 O2 Delivery Room Air Room Air Room Air 08/08/19 08/08/19 08/09/19 08/09/19 20:02 22:18 02:53 05:15 Temp 98.3 98.1 98.3 98.1 Pulse 84 80 78 78 Resp 18 18 B/P (MAP) 146/102 130/93 (105) 113/78 (90) 127/84 (98) Pulse Ox 98 98 O2 Delivery Room Air Room Air 08/09/19 08/09/19 08/09/19 07:03 08:00 11:02 Temp 98.1 98.4 98.1 98.4 Pulse 71 80 Resp 16 B/P (MAP) 121/84 (96) 135/95 (108) Pulse Ox 96 96 O2 Delivery Room Air Room Air Room Air Intake and Output 08/08/19 08/08/19 08/09/19 15:00 23:00 07:00 Intake Total 1200 ml 600 ml 0 ml Output Total 1120 ml 1500 ml 900 ml Balance 80 ml -900 ml -900 ml Problem List Problems Medical Problems: (1) AMS (altered mental status) Status: Acute (2) Cough Status: Acute (3) Hypokalemia Status: Acute (4) Person under investigation for COVID-19 Status: Acute (5) Rhabdomyolysis Status: Acute (6) Sepsis Status: Acute (7) Shortness of breath Status: Acute Assessment Likely alcoholic liver disease. Plan of Care Note Advised to stop drinking. Continue other. Hemodynamically unstable?: No Is patient in severe pain?: No Is NPO status required?: No JULIUS TIWARI MD August 09, 2019 11:13
[2019-08-09] MEDS ORDERED: POTASSIUM CHLORIDE 20 MEQ TABLET.ER. PO ONE (13:15)
[2019-08-09] MEDS ORDERED: MAGNESIUM SULFATE 2GM 50 ML IV ONE (13:30)
--- NOTE | 2019-08-09 13:39 | NUR ---
SS following up with discharge planning. SS reviewed pt chart and discussed with pt RN. Pt is from home with family and is currently on room air. PT/OT ordered. PAT team referral made due to ETOH. Pt reported to pt RN that he drinks vodka heavily. Pt COVID19 negative. Aurelio from PAT team coming to meet with pt. SS will continue to follow for discharge planning.
[2019-08-09] MEDS: POTASSIUM CHLORIDE 10MEQ 100 ML IV SCH ×2 (14:28→16:15)
[2019-08-09] MEDS: LORazepam 1 MG TABLET PO PRN ×2 (14:43→20:12)
--- NOTE | 2019-08-09 15:24 | PDOC ---
KELLY RAMIREZ DIALYSIS CHIEF EQUIPMENT TECHNICIAN 08/09/19 1523: CARDIO Progress Notes Date and Time Date of Service 08/09/19 Time of Evaluation 1315 Subjective Subjective: No Chest Pain, No shortness of breath, No Palpitations Vitals Vitals Vital Signs Date Time Temp Pulse Resp B/P (MAP) Pulse Ox O2 Delivery O2 Flow Rate FiO2 08/09/19 14:27 85 155/95 08/09/19 11:02 98.4 96 Room Air 98.4 08/09/19 07:03 16 Weight Weight [ ] Input and Output Intake and Output Intake and Output 08/09/19 07:00 Intake Total 1800 ml Output Total 3520 ml Balance -1720 ml Intake Oral 1800 ml Output Urine Total 3520 ml # Bowel Movements 3 Laboratory Labs Laboratory Tests Test 08/09/19 03:30 Sodium Level 140 mmol/L (136-145) Potassium Level 3.3 mmol/L (3.5-5.1) Chloride Level 104 mmol/L (98-107) Carbon Dioxide Level 25 mmol/L (21-32) Anion Gap 11 (6-14) Blood Urea Nitrogen 7 mg/dL (8-26) Creatinine 0.7 mg/dL (0.7-1.3) Estimated GFR (Cockcroft-Gault) 123.1 Glucose Level 100 mg/dL (70-99) Calcium Level 7.9 mg/dL (8.5-10.1) Magnesium Level 1.8 mg/dL (1.8-2.4) Microbiology Micro Microbiology 08/06/19 Blood Culture - Preliminary, Resulted NO GROWTH AFTER 3 DAYS 08/05/19 Fecal Leukocyte Stain - Final, Complete Physical Exam HEENT: Neck Supple W Full Motion Chest: Symmetric LUNGS: Clear to Auscultation Heart: S1S2, RRR (SR) Abdomen: Soft N/T Extremities: No Edema Neurology: alert, follow commands Assessment Assessment 1. Metabolic, hepatic encephalopathy; mentation improved 2. ETOH abuse, elevated LFTs, cirrhosis 3. Fevers, staph bacteremia; as per ID 4. Sinus tachycardia, physiologic. Improved. Echo pending. Supportive care from a CV standpoint. 5. Thrombocytopenia; improved 6. Nausea/vomiting, hypokalemia; replaced 7. Rhabdomyolysis; better with IVF FLOR HICKEY MD 08/09/19 1609: CARDIO Progress Notes Assessment Assessment Patient seen and examined ETOH abuse, elevated LFTs, cirrhosis Fevers, staph bacteremia; as per ID Sinus tachycardia, physiologic. Improved. Echo pending. Supportive care from a CV standpoint. Rhabdomyolysis. Continues to improve. KELLY RAMIREZ APRN August 09, 2019 15:23 FLOR HICKEY MD August 09, 2019 16:09
[2019-08-09] MEDS: NICOTINE POLACRILEX 2MG GUM PACKAGE of 12. BC PRN ×3 (17:47→22:38)
[2019-08-09] MEDS: cloNIDine HCL 0.1 MG TABLET PO PRN (20:12)
[2019-08-09] MEDS: ENOXAPARIN 40 MG/0.4 ML SYRINGE. SQ SCH (20:20)
[2019-08-10] MEDS: IV NORMAL SALINE 1000ML BAG 1,000 ML IV SCH (01:00)
[2019-08-10 03:00] VITALS: BP 129/86
[2019-08-10 04:13] LABS: CREATININE 0.8 mg/dL (0.7-1.3); GFR 105.5
[2019-08-10] MEDS: cloNIDine HCL 0.2 MG TABLET PO SCH (06:00)
[2019-08-10 07:34] VITALS: BP 129/78
--- NOTE | 2019-08-10 08:06 | PDOC ---
PROGRESS NOTES Chief Complaint Chief Complaint A/P: Altered mental status hx severe alcohol abuse ACUTE METABOLIC ENCEPHALOPATHY Positive blood culture? contaminent Febrile illness etiology undetermined his COVID 19 is negative. Blood culture 1/4 bottles is positive for Gram-positive cocci in clusters.SECOND BOTTLE OF THIS SET IS NOW POSITIVE, ALSO WITh GRAM POSITIVE COCCI IN CLUSTERS. Nausea, vomiting, diarrhea. seems to have subsided, will continue to monitor Macrocytic anemia WITH THROMBOCYTOPENIA elevated lactic acid which is resolved, porbably secondary to emesis and poor oral intake with moderate to severe dehydration Elevated CPK secondary to dehydration and retching effort Hypokalemia secondary to emesis and diarrhea transaminitis sec to ETOH likely Hepatomegaly and hepatic steatosis. ELEVATED D-DIMER Plan: replace electrolytes, banana bag Supportive measures Follow results of blood cultures cont iv vancomycin IV fluid resuscitation DVT prophylaxis with Lovenox GI CONSULT NEUROLOGY CONSULT CARDIOLOGY CONSULT ECHO CPK B12 38 min pt exam, chart review, > 50% of time spent with exam, chart review, pt care coordination History of Present Illness History of Present Illness Mr Raymond is a 43 yo M w/ no PMHx comes to the ED with multiple complaints. He had not been feeling well for the last 3 weeks with nausea, vomiting, diarrhea, cough, shortness of breath, some intermittent fever and chills. He has been quarantined at home for about 3 weeks and has been wondering that he may have caught up something at work. He feels weak. He was found to have a fever of 99.6. White count of 10, hemoglobin of 14.2, hematocrit 42, platelets of 104. Potassium of 2.9, sodium of 137, creatinine of 1.1. Lactate of 14.5, ferritin 1689, bilirubin 0.8, AST 186, ALT 128, alkaline phosphatase 106. CK 1184, albumin 3.5, lipase 359. Procalcitonin 0.23. Ammonia 32. The patient got a dose of azithromycin, was started on cefepime. ID consult has been requested for antibiotic management. Neurology for confusion. Blood culture 1/4 bottles is positive for Gram-positive cocci in clusters. The patient underwent a head CT for altered mental status, which did not show any acute intracranial process. Chest x-ray showed no acute cardiopulmonary process. Abdominal imaging concerning for chronic pancreatitis and liver disease. 08/06: No acute events reported overnight, case discussed with nursing staff patient in no acute distress no complaints during my visit. Drinks 2 pints a day of vodka, denies tick bites, or exposure to deers, rabbits, has not hunted since he was a child 08/07: Bowel movement x2 this morning. More alert today. He is shaking, weak. He tells me in the same sentence he was drinking 2 pints per day of hard alcohol, then tells me it has been 2 weeks, then notes it has been a month since he has had a drink. He notes his appetite has improved. 07/18/25: Afebrile overnight. More alert today. No shaking. Eating and drinking nearly 100%. No cough or SOB. Feeling stronger today. K 3.3. Mg 1.8. Afebrile overnight. Staph hominis on blood cultures, sensitive to doxy. He is very anxious to have a cigarette and leave. Labs stable. 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, grossly nonfocal, tremors on outstretched hands General: mild distress Heart: Other (Regular rhythm rate of 96) Lungs: Clear Abdomen: Normal bowel sounds, Soft Extremities: No cyanosis, No edema, No tenderness/swelling Skin: No rashes Labs LABS Laboratory Tests Test 08/10/19 03:09 Creatinine 0.8 mg/dL (0.7-1.3) Estimated GFR (Cockcroft-Gault) 105.5 Assessment and Plan Assessmemt and Plan Problems Medical Problems: (1) AMS (altered mental status) Status: Acute (2) Cough Status: Acute (3) Hypokalemia Status: Acute (4) Person under investigation for COVID-19 Status: Acute (5) Rhabdomyolysis Status: Acute (6) Sepsis Status: Acute (7) Shortness of breath Status: Acute Comment Review of Relevant I have reviewed the following items bonnie (where applicable) has been applied. Labs Laboratory Tests Test 08/09/19 03:30 08/10/19 03:09 Sodium Level 140 mmol/L (136-145) Potassium Level 3.3 mmol/L (3.5-5.1) Chloride Level 104 mmol/L (98-107) Carbon Dioxide Level 25 mmol/L (21-32) Anion Gap 11 (6-14) Blood Urea Nitrogen 7 mg/dL (8-26) Creatinine 0.7 mg/dL (0.7-1.3) 0.8 mg/dL (0.7-1.3) Estimated GFR (Cockcroft-Gault) 123.1 105.5 Glucose Level 100 mg/dL (70-99) Calcium Level 7.9 mg/dL (8.5-10.1) Magnesium Level 1.8 mg/dL (1.8-2.4) Laboratory Tests Test 08/10/19 03:09 Creatinine 0.8 mg/dL (0.7-1.3) Estimated GFR (Cockcroft-Gault) 105.5 Microbiology 08/06/19 Blood Culture - Preliminary, Resulted NO GROWTH AFTER 4 DAYS 08/05/19 Fecal Leukocyte Stain - Final, Complete Medications Current Medications Sodium Chloride 1,000 ml @ 1,000 mls/hr 1X ONCE IV Last administered on 08/04/19at 18:40; Start 08/04/19 at 18:00; Stop 08/04/19 at 18:59; Status DC Potassium Bicarbonate (Potassium Effervescent Tablet) 40 meq 1X ONCE PO Last administered on 08/04/19at 19:02; Start 08/04/19 at 18:45; Stop 08/04/19 at 18:47; Status DC Sodium Chloride 1,000 ml @ 1,000 mls/hr 1X ONCE IV Last administered on 08/04/19at 20:35; Start 08/04/19 at 19:30; Stop 08/04/19 at 20:29; Status DC Ondansetron HCl (Zofran) 4 mg PRN Q8HRS PRN IV NAUSEA/VOMITING; Start 08/04/19 at 19:30; Stop 08/04/19 at 20:26; Status DC Acetaminophen (Tylenol) 650 mg PRN Q4HRS PRN PO FEVER > 100.3'F; Start 08/04/19 at 19:30; Stop 08/04/19 at 20:26; Status DC Potassium Chloride/Sodium Chloride 1,000 ml @ 75 mls/hr 1X ONCE IV Last administered on 08/04/19at 21:56; Start 08/04/19 at 21:00; Stop 08/05/19 at 10:19; Status DC Sodium Chloride 1,000 ml @ 1,000 mls/hr 1X ONCE IV Last administered on 08/04/19at 22:01; Start 08/04/19 at 19:30; Stop 08/04/19 at 20:29; Status DC Ceftriaxone Sodium (Rocephin) 1 gm 1X ONCE IVP Last administered on 08/04/19at 20:34; Start 08/04/19 at 19:30; Stop 08/04/19 at 19:31; Status DC Azithromycin 250 ml @ 250 mls/hr 1X ONCE IV Last administered on 08/04/19at 19:30; Start 08/04/19 at 19:30; Stop 08/04/19 at 20:29; Status DC Cefepime HCl (Maxipime) 1 gm Q8HRS IVP ; Start 08/04/19 at 22:00; Stop 08/04/19 at 20:18; Status DC Sodium Chloride 1,000 ml @ 2,340 mls/hr Q26M IV ; Start 08/04/19 at 20:30; Stop 08/04/19 at 21:30; Status DC Sodium Chloride 500 ml @ 1,000 mls/hr PRN Q30MIN PRN IV SEE COMMENTS; Start 08/04/19 at 21:30 Cefepime HCl (Maxipime) 2 gm Q8HRS IVP Last administered on 08/06/19at 13:58; Start 08/04/19 at 22:00; Stop 08/06/19 at 15:03; Status DC Hydralazine HCl (Apresoline Inj) 10 mg PRN Q4HRS PRN IVP ELEVATED BP, SEE COMMENTS Last administered on 08/05/19at 13:17; Start 08/04/19 at 20:30 Sodium Chloride (Normal Saline Flush) 3 ml QSHIFT PRN IV AFTER MEDS AND BLOOD DRAWS; Start 08/04/19 at 20:30 Sodium Chloride 1,000 ml @ 100 mls/hr Q10H IV Last administered on 08/08/19at 09:39; Start 5/22/20 at 11:00 Ondansetron HCl (Zofran) 4 mg PRN Q4HRS PRN IV NAUSEA/VOMITING; Start 08/04/19 at 20:30 Acetaminophen (Tylenol) 650 mg PRN Q4HRS PRN PO TEMP OVER 100.4F OR MILD PAIN Last administered on 08/05/19at 11:41; Start 08/04/19 at 20:30 Al Hydroxide/Mg Hydroxide (Mylanta Plus Xs) 30 ml PRN DAILY PRN PO HEARTBURN / GAS; Start 08/04/19 at 20:30 Clonidine HCl (Catapres) 0.1 mg PRN Q6HRS PRN PO SBP>160 OR DBP>90 Last administered on 08/09/19at 20:12; Start 08/04/19 at 20:30 Sodium Monofluorophosphate (Fleet Adult) 133 ml PRN DAILY PRN [place] CONSTIPATION; Start 08/04/19 at 20:30 Docusate Sodium (Colace) 100 mg PRN BID PRN PO HARD STOOLS; Start 08/04/19 at 20:30 Albuterol Sulfate (Ventolin Neb Soln) 2.5 mg PRN Q4HRS PRN NEB SHORTNESS OF BREATH; Start 08/04/19 at 20:30 Guaifenesin (Robitussin) 200 mg PRN Q4HRS PRN PO COUGH; Start 08/04/19 at 20:30 Enoxaparin Sodium (Lovenox 40mg Syringe) 40 mg Q24H SQ Last administered on 08/08/19at 20:01; Start 08/04/19 at 21:00 Vancomycin HCl 250 ml @ 250 mls/hr 1X ONCE IV Last administered on 08/05/19at 00:57; Start 08/04/19 at 21:00; Stop 08/04/19 at 21:59; Status DC Potassium Bicarbonate (Potassium Effervescent Tablet) 40 meq 1X ONCE PO Last administered on 08/05/19at 09:15; Start 08/05/19 at 07:30; Stop 08/05/19 at 07:31; Status DC Potassium Bicarbonate (Potassium Effervescent Tablet) 20 meq 1X ONCE PO Last administered on 08/05/19at 11:15; Start 08/05/19 at 09:30; Stop 08/05/19 at 09:31; Status DC Vancomycin HCl 1 gm/Sodium Chloride 250 ml @ 250 mls/hr Q12H IV ; Start 08/05/19 at 12:00; Status UNV Vancomycin HCl (Vanco Per Pharmacy) 1 each PRN DAILY PRN MC SEE COMMENTS Last administered on 08/06/19at 11:32; Start 08/05/19 at 12:00; Stop 08/06/19 at 11:49; Status DC Vancomycin HCl 1.25 gm/Sodium Chloride 250 ml @ 167 mls/hr Q12H IV ; Start 08/05/19 at 12:30; Stop 08/05/19 at 12:01; Status DC Vancomycin HCl (Vancomycin Trough Level) 1 each 1X ONCE MC ; Start 08/07/19 at 00:00; Stop 08/06/19 at 11:48; Status DC Vancomycin HCl 1.25 gm/Sodium Chloride 250 ml @ 167 mls/hr Q12H IV Last administered on 08/06/19at 11:19; Start 08/05/19 at 12:30; Stop 08/06/19 at 11:47; Status DC Enoxaparin Sodium (Lovenox 40mg Syringe) 40 mg Q24H SQ ; Start 08/05/19 at 14:45; Status UNV Lorazepam (Ativan) 1 mg PRN Q8HRS PRN PO ANXIETY / AGITATION Last administered on 08/05/19at 15:15; Start 08/05/19 at 15:15; Stop 08/05/19 at 20:06; Status DC Lactobacillus Rhamnosus (Culturelle) 1 cap BID PO Last administered on 08/09/19at 20:12; Start 08/05/19 at 21:00 Metoprolol Tartrate (Lopressor Vial) 5 mg PRN Q5MIN PRN IVP TACHYCARDIA Last administered on 08/05/19at 17:33; Start 08/05/19 at 17:30 Lorazepam (Ativan) 1 mg PRN Q4HRS PRN PO ANXIETY / AGITATION Last administered on 08/09/19at 20:12; Start 08/05/19 at 20:15 Nicotine (Nicoderm Cq 21mg) 1 patch DAILY TD Last administered on 08/09/19at 09:45; Start 08/05/19 at 20:30 Lorazepam (Ativan Inj) 2 mg PRN Q1HR PRN IV For CIWA 8-14 Last administered on 08/06/19at 02:50; Start 08/05/19 at 22:30 Lorazepam (Ativan) 4 mg PRN Q1HR PRN PO For CIWA 8-14; Start 08/06/19 at 02:30 Haloperidol Lactate (Haldol Inj) 5 mg PRN Q4HRS PRN IVP Hallucinatns,Confusn,Delirium Last administered on 08/07/19at 10:39; Start 08/06/19 at 02:30 Diphenhydramine HCl (Benadryl) 25 mg PRN Q15MIN PRN IVP EPS symptoms 2'Haldol admin Last administered on 08/06/19at 02:50; Start 08/06/19 at 02:30 Ziprasidone (Geodon Im) 20 mg 1X ONCE IM Last administered on 08/06/19 04:31; Start 08/06/19 at 03:30; Stop 08/06/19 at 03:31; Status DC Thiamine HCl 100 mg/Dextrose 51 ml @ 102 mls/hr DAILY IV Last administered on 08/06/19at 08:05; Start 08/06/19 at 03:30; Stop 08/07/19 at 09:52; Status DC Lorazepam (Ativan Inj) 4 mg PRN Q1HR PRN IV For CIWA 15 or greater Last administered on 08/07/19at 16:23; Start 08/06/19 at 03:15 Potassium Chloride/Water 100 ml @ 50 mls/hr 1X ONCE IV Last administered on 08/06/19at 20:38; Start 08/06/19 at 20:15; Stop 08/06/19 at 22:14; Status DC Potassium Chloride/Water 100 ml @ 50 mls/hr 1X ONCE IV Last administered on 08/06/19at 22:39; Start 08/06/19 at 22:15; Stop 08/07/19 at 00:14; Status DC Magnesium Sulfate 50 ml @ 25 mls/hr 1X ONCE IV Last administered on 08/06/19at 20:37; Start 08/06/19 at 20:15; Stop 08/06/19 at 22:14; Status DC Clonidine HCl (Catapres) 0.2 mg Q8HRS PO Last administered on 08/09/19at 20:24; Start 08/06/19 at 22:00 Multivitamins 10 ml/Thiamine HCl 100 mg/Folic Acid 1 mg/Sodium Chloride 1,011.2 ml @ 0 mls/hr DAILY IV Last administered on 08/09/19at 09:45; Start 08/07/19 at 09:00; Stop 08/11/19 at 09:01 Vancomycin HCl (Vanco Per Pharmacy) 1 each PRN DAILY PRN MC SEE COMMENTS Last administered on 08/08/19at 12:16; Start 08/07/19 at 08:00; Stop 08/08/19 at 13:00; Status DC Vancomycin HCl 1 gm/Sodium Chloride 250 ml @ 250 mls/hr Q8H IV Last administered on 08/08/19at 00:36; Start 08/07/19 at 08:00; Stop 08/08/19 at 08:20; Status DC Vancomycin HCl (Vancomycin Trough Level) 1 each 1X ONCE MC ; Start 08/08/19 at 07:30; Stop 08/08/19 at 07:31; Status DC Vancomycin HCl 1.5 gm/Sodium Chloride 500 ml @ 250 mls/hr Q8H IV ; Start 08/08/19 at 09:00; Stop 08/08/19 at 09:35; Status DC Vancomycin HCl (Vancomycin Trough Level) 1 each 1X ONCE MC ; Start 08/09/19 at 08:30; Stop 08/09/19 at 08:31; Status Cancel Lactulose (Lactulose) 20 gm TID PO Last administered on 08/09/19at 14:26; Start 08/08/19 at 14:00 Nicotine Polacrilex (Nicorette Gum) 1 each PRN Q1HR PRN BC SMOKING CESSATION Last administered on 08/09/19at 22:38; Start 08/08/19 at 22:00 Potassium Chloride/Water 100 ml @ 100 mls/hr Q1H IV Last administered on 08/09/19at 16:15; Start 08/09/19 at 13:30; Stop 08/09/19 at 15:29; Status DC Potassium Chloride (Klor-Con) 40 meq 1X ONCE PO Last administered on 08/09/19at 14:25; Start 08/09/19 at 13:15; Stop 08/09/19 at 13:17; Status DC Magnesium Sulfate 50 ml @ 25 mls/hr 1X ONCE IV Last administered on 08/09/19at 17:40; Start 08/09/19 at 13:30; Stop 08/09/19 at 15:29; Status DC Folic Acid (Folic Acid) 1 mg DAILY PO ; Start 08/12/19 at 09:00 Multivitamins (Thera M Plus) 1 tab DAILY PO ; Start 08/12/19 at 09:00 Thiamine Mononitrate (Vitamin B-1) 100 mg DAILY PO ; Start 08/12/19 at 09:00 Vitals/I & O Vital Sign - Last 24 Hours 08/09/19 08/09/19 08/09/19 08/09/19 11:02 14:27 15:00 19:00 Temp 98.4 98.0 97.7 98.4 98.0 97.7 Pulse 80 85 84 86 Resp 18 18 B/P (MAP) 135/95 (108) 155/95 127/80 (96) 144/98 (113) Pulse Ox 96 98 98 O2 Delivery Room Air Room Air Room Air 08/09/19 08/09/19 08/09/19 08/09/19 19:49 20:12 20:24 23:00 Temp 98.4 98.4 Pulse 86 86 83 Resp 18 B/P (MAP) 144/98 144/98 131/83 (99) Pulse Ox 98 O2 Delivery Room Air Room Air 08/10/19 08/10/19 08/10/19 03:00 06:00 07:34 Temp 98.6 98.7 98.6 98.7 Pulse 84 84 84 Resp 18 18 B/P (MAP) 129/86 (100) 129/86 129/78 (95) Pulse Ox 98 99 O2 Delivery Room Air Room Air Intake and Output 08/09/19 08/09/19 08/10/19 15:00 23:00 07:00 Intake Total 1040 ml 600 ml 100 ml Output Total 400 ml Balance 640 ml 600 ml 100 ml Hemodynamically unstable?: No Is patient in severe pain?: No Is NPO status required?: No JERRY ACEVES MD August 10, 2019 08:06
[2019-08-10] MEDS: NICOTINE 21MG PATCH. TD SCH (08:12)
[2019-08-10] MEDS: LORazepam 1 MG TABLET PO PRN (08:13)
[2019-08-10] MEDS: LACTOBACILLUS RHAMNOSUS GG 1 CAPSULE. PO SCH (08:14)
[2019-08-10] MEDS: LACTULOSE 20 GM/30 ML SOLUTION. PO SCH (08:14)
[2019-08-10 08:24] LABS: CREATININE 0.8 mg/dL (0.7-1.3); GFR 105.5; MAGNESIUM 2.1 mg/dL (1.8-2.4); POTASSIUM 4.2 mmol/L (3.5-5.1)
--- NOTE | 2019-08-10 08:33 | PDOC ---
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, grossly nonfocal, tremors on outstretched hands Medications: Inpatient Meds: Current Medications Medications (Trade) Dose Ordered Sig/Cris Start Time Stop Time Status Last Admin Dose Admin Acetaminophen (Tylenol) 650 mg PRN Q4HRS PRN 08/04/19 20:30 08/05/19 11:41 650 MG Al Hydroxide/Mg Hydroxide (Mylanta Plus Xs) 30 ml PRN DAILY PRN 08/04/19 20:30 Albuterol Sulfate (Ventolin Neb Soln) 2.5 mg PRN Q4HRS PRN 08/04/19 20:30 Azithromycin 250 ml @ 250 mls/hr 1X ONCE 08/04/19 19:30 08/04/19 20:29 DC 08/04/19 19:30 250 MLS/HR Cefepime HCl (Maxipime) 2 gm Q8HRS 08/04/19 22:00 08/06/19 15:03 DC 08/06/19 13:58 2 GM Ceftriaxone Sodium (Rocephin) 1 gm 1X ONCE 08/04/19 19:30 08/04/19 19:31 DC 08/04/19 20:34 1 GM Clonidine HCl (Catapres) 0.2 mg Q8HRS 08/06/19 22:00 08/09/19 20:24 0.2 MG Diphenhydramine HCl (Benadryl) 25 mg PRN Q15MIN PRN 08/06/19 02:30 08/06/19 02:50 25 MG Docusate Sodium (Colace) 100 mg PRN BID PRN 08/04/19 20:30 Enoxaparin Sodium (Lovenox 40mg Syringe) 40 mg Q24H 08/05/19 14:45 UNV Folic Acid (Folic Acid) 1 mg DAILY 08/12/19 09:00 Guaifenesin (Robitussin) 200 mg PRN Q4HRS PRN 08/04/19 20:30 Haloperidol Lactate (Haldol Inj) 5 mg PRN Q4HRS PRN 08/06/19 02:30 08/07/19 10:39 5 MG Hydralazine HCl (Apresoline Inj) 10 mg PRN Q4HRS PRN 08/04/19 20:30 08/05/19 13:17 10 MG Lactobacillus Rhamnosus (Culturelle) 1 cap BID 08/05/19 21:00 08/10/19 08:14 1 CAP Lactulose (Lactulose) 20 gm TID 08/08/19 14:00 08/10/19 08:14 20 GM Lorazepam (Ativan Inj) 4 mg PRN Q1HR PRN 08/06/19 03:15 08/07/19 16:23 4 MG Lorazepam (Ativan) 4 mg PRN Q1HR PRN 08/06/19 02:30 Magnesium Sulfate 50 ml @ 25 mls/hr 1X ONCE 08/09/19 13:30 08/09/19 15:29 DC 08/09/19 17:40 25 MLS/HR Metoprolol Tartrate (Lopressor Vial) 5 mg PRN Q5MIN PRN 08/05/19 17:30 08/05/19 17:33 5 MG Multivitamins (Thera M Plus) 1 tab DAILY 08/12/19 09:00 Multivitamins 10 ml/Thiamine HCl 100 mg/Folic Acid 1 mg/Sodium Chloride 1,011.2 ml @ 0 mls/hr DAILY 08/07/19 09:00 08/11/19 09:01 08/09/19 09:45 100 MLS/HR Nicotine (Nicoderm Cq 21mg) 1 patch DAILY 08/05/19 20:30 08/10/19 08:12 1 PATCH Nicotine Polacrilex (Nicorette Gum) 1 each PRN Q1HR PRN 08/08/19 22:00 08/09/19 22:38 1 EACH Ondansetron HCl (Zofran) 4 mg PRN Q4HRS PRN 08/04/19 20:30 Potassium Bicarbonate (Potassium Effervescent Tablet) 20 meq 1X ONCE 08/05/19 09:30 08/05/19 09:31 DC 08/05/19 11:15 20 MEQ Potassium Chloride/Sodium Chloride 1,000 ml @ 75 mls/hr 1X ONCE 08/04/19 21:00 08/05/19 10:19 DC 08/04/19 21:56 75 MLS/HR Potassium Chloride/Water 100 ml @ 100 mls/hr Q1H 08/09/19 13:30 08/09/19 15:29 DC 08/09/19 16:15 100 MLS/HR Potassium Chloride (Klor-Con) 40 meq 1X ONCE 08/09/19 13:15 08/09/19 13:17 DC 08/09/19 14:25 40 MEQ Sodium Monofluorophosphate (Fleet Adult) 133 ml PRN DAILY PRN 08/04/19 20:30 Sodium Chloride 1,000 ml @ 100 mls/hr Q10H 08/05/19 11:00 08/08/19 09:39 100 MLS/HR Sodium Chloride (Normal Saline Flush) 3 ml QSHIFT PRN 08/04/19 20:30 Thiamine Mononitrate (Vitamin B-1) 100 mg DAILY 08/12/19 09:00 Thiamine HCl 100 mg/Dextrose 51 ml @ 102 mls/hr DAILY 08/06/19 03:30 08/07/19 09:52 DC 08/06/19 08:05 102 MLS/HR Vancomycin HCl (Vanco Per Pharmacy) 1 each PRN DAILY PRN 08/07/19 08:00 08/08/19 13:00 DC 08/08/19 12:16 1 EACH Vancomycin HCl (Vancomycin Trough Level) 1 each 1X ONCE 08/09/19 08:30 08/09/19 08:31 Cancel Vancomycin HCl 1.25 gm/Sodium Chloride 250 ml @ 167 mls/hr Q12H 08/05/19 12:30 08/06/19 11:47 DC 08/06/19 11:19 167 MLS/HR Vancomycin HCl 1.5 gm/Sodium Chloride 500 ml @ 250 mls/hr Q8H 08/08/19 09:00 08/08/19 09:35 DC Vancomycin HCl 1 gm/Sodium Chloride 250 ml @ 250 mls/hr Q8H 08/07/19 08:00 08/08/19 08:20 DC 08/08/19 00:36 250 MLS/HR Ziprasidone (Geodon Im) 20 mg 1X ONCE 08/06/19 03:30 08/06/19 03:31 DC 08/06/19 04:31 20 MG Labs: Lab Laboratory Tests Test 08/10/19 03:09 Sodium Level 140 mmol/L (136-145) Potassium Level 4.2 mmol/L (3.5-5.1) Chloride Level 104 mmol/L (98-107) Carbon Dioxide Level 27 mmol/L (21-32) Anion Gap 9 (6-14) Blood Urea Nitrogen 12 mg/dL (8-26) Creatinine 0.8 mg/dL (0.7-1.3) Estimated GFR (Cockcroft-Gault) 105.5 Glucose Level 104 mg/dL (70-99) Calcium Level 8.0 mg/dL (8.5-10.1) Magnesium Level 2.1 mg/dL (1.8-2.4) Objective: Assessment: Alcohol dependence Alcoholic liver disease Paranoia/encephalopathy, improving History of nausea and vomiting improved Diarrhea present on admission. C. diff & Giardia negative Abnormal liver function test; abnormal ultrasound report, alcoholic liver disease, improving Anemia and thrombocytopenia Lactic acidosis, now resolved. Staph hominis bacteremia 1/4 bottles, likely contaminant from 08/03. Now reported 2 of 4 bottles. Rhabdomyolysis. Hypokalemia. Plan: Plan of Care Monitor off antibiotic Maintain aspiration precautions D/w nursing ZAK BREEN MD August 10, 2019 08:33
--- NOTE | 2019-08-10 08:48 | PDOC ---
PROGRESS NOTES Assessment Problems Medical Problems: (1) AMS (altered mental status) Status: Acute (2) Cough Status: Acute (3) Hypokalemia Status: Acute (4) Person under investigation for COVID-19 Status: Acute (5) Rhabdomyolysis Status: Acute (6) Sepsis Status: Acute (7) Shortness of breath Status: Acute Alcoholism, hepatic encephalopathy, resolved Rhabdomyolysis, CPK level 1550 on 08/07, was continuing to fall Medical issues: fevers, macrocytic anemia with thrombocytopenia, lactic acidosis which resolved, elevated CPK, hypokalemia, transaminitis, hepatomegaly, hepatic steatosis, elevated d-dimer Plan Okay for discharge Remove IV per patient request, he refuses further IV fluid PAT team consult requested, pending I Subjective Wants to go home, refuses further IV Objective Vital Signs Date Time Temp Pulse Resp B/P (MAP) Pulse Ox O2 Delivery O2 Flow Rate FiO2 08/10/19 07:34 98.7 84 18 129/78 (95) 99 Room Air 98.7 Intake and Output 08/10/19 07:00 Intake Total 1740 ml Output Total 400 ml Balance 1340 ml Intake Oral 1540 ml IV Total 200 ml Output Urine Total 400 ml # Voids 7 # Bowel Movements 2 PHYSICAL EXAM Alert. Oriented to time, place and person. PERRL. EOMI. CN: no focal findings. Muscle tone: normal. Muscle strength: 5/5 DTR: 1+ Plantar reflex: Flexor Gait: normal. Sensory exam: no abnormal findings. No cerebellar signs elicited. No tremulousness Review of Relevant I have reviewed the following items bonnie (where applicable) has been applied. Labs Laboratory Tests Test 08/09/19 03:30 08/10/19 03:09 Sodium Level 140 mmol/L (136-145) 140 mmol/L (136-145) Potassium Level 3.3 mmol/L (3.5-5.1) 4.2 mmol/L (3.5-5.1) Chloride Level 104 mmol/L (98-107) 104 mmol/L (98-107) Carbon Dioxide Level 25 mmol/L (21-32) 27 mmol/L (21-32) Anion Gap 11 (6-14) 9 (6-14) Blood Urea Nitrogen 7 mg/dL (8-26) 12 mg/dL (8-26) Creatinine 0.7 mg/dL (0.7-1.3) 0.8 mg/dL (0.7-1.3) Estimated GFR (Cockcroft-Gault) 123.1 105.5 Glucose Level 100 mg/dL (70-99) 104 mg/dL (70-99) Calcium Level 7.9 mg/dL (8.5-10.1) 8.0 mg/dL (8.5-10.1) Magnesium Level 1.8 mg/dL (1.8-2.4) 2.1 mg/dL (1.8-2.4) Laboratory Tests Test 08/10/19 03:09 Sodium Level 140 mmol/L (136-145) Potassium Level 4.2 mmol/L (3.5-5.1) Chloride Level 104 mmol/L (98-107) Carbon Dioxide Level 27 mmol/L (21-32) Anion Gap 9 (6-14) Blood Urea Nitrogen 12 mg/dL (8-26) Creatinine 0.8 mg/dL (0.7-1.3) Estimated GFR (Cockcroft-Gault) 105.5 Glucose Level 104 mg/dL (70-99) Calcium Level 8.0 mg/dL (8.5-10.1) Magnesium Level 2.1 mg/dL (1.8-2.4) Microbiology 08/06/19 Blood Culture - Preliminary, Resulted NO GROWTH AFTER 4 DAYS 08/05/19 Fecal Leukocyte Stain - Final, Complete Medications Current Medications Sodium Chloride 1,000 ml @ 1,000 mls/hr 1X ONCE IV Last administered on 08/04/19at 18:40; Start 08/04/19 at 18:00; Stop 08/04/19 at 18:59; Status DC Potassium Bicarbonate (Potassium Effervescent Tablet) 40 meq 1X ONCE PO Last administered on 08/04/19at 19:02; Start 08/04/19 at 18:45; Stop 08/04/19 at 18:47; Status DC Sodium Chloride 1,000 ml @ 1,000 mls/hr 1X ONCE IV Last administered on 08/04/19at 20:35; Start 08/04/19 at 19:30; Stop 08/04/19 at 20:29; Status DC Ondansetron HCl (Zofran) 4 mg PRN Q8HRS PRN IV NAUSEA/VOMITING; Start 08/04/19 at 19:30; Stop 08/04/19 at 20:26; Status DC Acetaminophen (Tylenol) 650 mg PRN Q4HRS PRN PO FEVER > 100.3'F; Start 08/04/19 at 19:30; Stop 08/04/19 at 20:26; Status DC Potassium Chloride/Sodium Chloride 1,000 ml @ 75 mls/hr 1X ONCE IV Last administered on 08/04/19at 21:56; Start 08/04/19 at 21:00; Stop 08/05/19 at 10:19; Status DC Sodium Chloride 1,000 ml @ 1,000 mls/hr 1X ONCE IV Last administered on 08/04/19at 22:01; Start 08/04/19 at 19:30; Stop 08/04/19 at 20:29; Status DC Ceftriaxone Sodium (Rocephin) 1 gm 1X ONCE IVP Last administered on 08/04/19at 20:34; Start 08/04/19 at 19:30; Stop 08/04/19 at 19:31; Status DC Azithromycin 250 ml @ 250 mls/hr 1X ONCE IV Last administered on 08/04/19at 19:30; Start 08/04/19 at 19:30; Stop 08/04/19 at 20:29; Status DC Cefepime HCl (Maxipime) 1 gm Q8HRS IVP ; Start 08/04/19 at 22:00; Stop 08/04/19 at 20:18; Status DC Sodium Chloride 1,000 ml @ 2,340 mls/hr Q26M IV ; Start 08/04/19 at 20:30; Stop 08/04/19 at 21:30; Status DC Sodium Chloride 500 ml @ 1,000 mls/hr PRN Q30MIN PRN IV SEE COMMENTS; Start 08/04/19 at 21:30 Cefepime HCl (Maxipime) 2 gm Q8HRS IVP Last administered on 08/06/19at 13:58; Start 08/04/19 at 22:00; Stop 08/06/19 at 15:03; Status DC Hydralazine HCl (Apresoline Inj) 10 mg PRN Q4HRS PRN IVP ELEVATED BP, SEE COMMENTS Last administered on 08/05/19at 13:17; Start 08/04/19 at 20:30 Sodium Chloride (Normal Saline Flush) 3 ml QSHIFT PRN IV AFTER MEDS AND BLOOD DRAWS; Start 08/04/19 at 20:30 Sodium Chloride 1,000 ml @ 100 mls/hr Q10H IV Last administered on 08/08/19at 09:39; Start 08/05/19 at 11:00 Ondansetron HCl (Zofran) 4 mg PRN Q4HRS PRN IV NAUSEA/VOMITING; Start 08/04/19 at 20:30 Acetaminophen (Tylenol) 650 mg PRN Q4HRS PRN PO TEMP OVER 100.4F OR MILD PAIN Last administered on 08/05/19at 11:41; Start 08/04/19 at 20:30 Al Hydroxide/Mg Hydroxide (Mylanta Plus Xs) 30 ml PRN DAILY PRN PO HEARTBURN / GAS; Start 08/04/19 at 20:30 Clonidine HCl (Catapres) 0.1 mg PRN Q6HRS PRN PO SBP>160 OR DBP>90 Last administered on 08/09/19at 20:12; Start 08/04/19 at 20:30 Sodium Monofluorophosphate (Fleet Adult) 133 ml PRN DAILY PRN [place] CONSTIPATION; Start 08/04/19 at 20:30 Docusate Sodium (Colace) 100 mg PRN BID PRN PO HARD STOOLS; Start 08/04/19 at 20:30 Albuterol Sulfate (Ventolin Neb Soln) 2.5 mg PRN Q4HRS PRN NEB SHORTNESS OF BREATH; Start 08/04/19 at 20:30 Guaifenesin (Robitussin) 200 mg PRN Q4HRS PRN PO COUGH; Start 08/04/19 at 20:30 Enoxaparin Sodium (Lovenox 40mg Syringe) 40 mg Q24H SQ Last administered on 08/08/19at 20:01; Start 08/04/19 at 21:00 Vancomycin HCl 250 ml @ 250 mls/hr 1X ONCE IV Last administered on 08/05/19at 00:57; Start 08/04/19 at 21:00; Stop 08/04/19 at 21:59; Status DC Potassium Bicarbonate (Potassium Effervescent Tablet) 40 meq 1X ONCE PO Last administered on 08/05/19at 09:15; Start 08/05/19 at 07:30; Stop 08/05/19 at 07 :31; Status DC Potassium Bicarbonate (Potassium Effervescent Tablet) 20 meq 1X ONCE PO Last administered on 08/05/19at 11:15; Start 08/05/19 at 09:30; Stop 08/05/19 at 09:31; Status DC Vancomycin HCl 1 gm/Sodium Chloride 250 ml @ 250 mls/hr Q12H IV ; Start 08/05/19 at 12:00; Status UNV Vancomycin HCl (Vanco Per Pharmacy) 1 each PRN DAILY PRN MC SEE COMMENTS Last administered on 08/06/19at 11:32; Start 08/05/19 at 12:00; Stop 08/06/19 at 11:49; Status DC Vancomycin HCl 1.25 gm/Sodium Chloride 250 ml @ 167 mls/hr Q12H IV ; Start 08/05/19 at 12:30; Stop 08/05/19 at 12:01; Status DC Vancomycin HCl (Vancomycin Trough Level) 1 each 1X ONCE MC ; Start 08/07/19 at 00:00; Stop 08/06/19 at 11:48; Status DC Vancomycin HCl 1.25 gm/Sodium Chloride 250 ml @ 167 mls/hr Q12H IV Last administered on 08/06/19at 11:19; Start 08/05/19 at 12:30; Stop 08/06/19 at 11:47; Status DC Enoxaparin Sodium (Lovenox 40mg Syringe) 40 mg Q24H SQ ; Start 08/05/19 at 14:45; Status UNV Lorazepam (Ativan) 1 mg PRN Q8HRS PRN PO ANXIETY / AGITATION Last administered on 08/05/19at 15:15; Start 08/05/19 at 15:15; Stop 08/05/19 at 20:06; Status DC Lactobacillus Rhamnosus (Culturelle) 1 cap BID PO Last administered on 08/10/19at 08:14; Start 08/05/19 at 21:00 Metoprolol Tartrate (Lopressor Vial) 5 mg PRN Q5MIN PRN IVP TACHYCARDIA Last administered on 08/05/19at 17:33; Start 08/05/19 at 17:30 Lorazepam (Ativan) 1 mg PRN Q4HRS PRN PO ANXIETY / AGITATION Last administered on 08/10/19at 08:13; Start 08/05/19 at 20:15 Nicotine (Nicoderm Cq 21mg) 1 patch DAILY TD Last administered on 08/10/19at 08:12; Start 08/05/19 at 20:30 Lorazepam (Ativan Inj) 2 mg PRN Q1HR PRN IV For CIWA 8-14 Last administered on 08/06/19at 02:50; Start 08/05/19 at 22:30 Lorazepam (Ativan) 4 mg PRN Q1HR PRN PO For CIWA 8-14; Start 08/06/19 at 02:30 Haloperidol Lactate (Haldol Inj) 5 mg PRN Q4HRS PRN IVP Hallucinatns,Confusn,Delirium Last administered on 08/07/19at 10:39; Start 08/06/19 at 02:30 Diphenhydramine HCl (Benadryl) 25 mg PRN Q15MIN PRN IVP EPS symptoms 2'Haldol admin Last administered on 08/06/19at 02:50; Start 08/06/19 at 02:30 Ziprasidone (Geodon Im) 20 mg 1X ONCE IM Last administered on 08/06/19at 04:31; Start 08/06/19 at 03:30; Stop 08/06/19 at 03:31; Status DC Thiamine HCl 100 mg/Dextrose 51 ml @ 102 mls/hr DAILY IV Last administered on 08/06/19at 08:05; Start 08/06/19 at 03:30; Stop 08/07/19 at 09:52; Status DC Lorazepam (Ativan Inj) 4 mg PRN Q1HR PRN IV For CIWA 15 or greater Last administered on 08/07/19at 16:23; Start 08/06/19 at 03:15 Potassium Chloride/Water 100 ml @ 50 mls/hr 1X ONCE IV Last administered on 08/06/19at 20:38; Start 08/06/19 at 20:15; Stop 08/06/19 at 22:14; Status DC Potassium Chloride/Water 100 ml @ 50 mls/hr 1X ONCE IV Last administered on 08/06/19at 22:39; Start 08/06/19 at 22:15; Stop 08/07/19 at 00:14; Status DC Magnesium Sulfate 50 ml @ 25 mls/hr 1X ONCE IV Last administered on 08/06/19at 20:37; Start 08/06/19 at 20:15; Stop 08/06/19 at 22:14; Status DC Clonidine HCl (Catapres) 0.2 mg Q8HRS PO Last administered on 08/09/19at 20:24; Start 08/06/19 at 22:00 Multivitamins 10 ml/Thiamine HCl 100 mg/Folic Acid 1 mg/Sodium Chloride 1,011.2 ml @ 0 mls/hr DAILY IV Last administered on 08/09/19at 09:45; Start 08/07/19 at 09:00; Stop 08/11/19 at 09:01 Vancomycin HCl (Vanco Per Pharmacy) 1 each PRN DAILY PRN MC SEE COMMENTS Last administered on 08/08/19at 12:16; Start 08/07/19 at 08:00; Stop 08/08/19 at 13:00; Status DC Vancomycin HCl 1 gm/Sodium Chloride 250 ml @ 250 mls/hr Q8H IV Last administered on 08/08/19at 00:36; Start 08/07/19 at 08:00; Stop 08/08/19 at 08:20; Status DC Vancomycin HCl (Vancomycin Trough Level) 1 each 1X ONCE MC ; Start 08/08/19 at 07:30; Stop 08/08/19 at 07:31; Status DC Vancomycin HCl 1.5 gm/Sodium Chloride 500 ml @ 250 mls/hr Q8H IV ; Start 08/08/19 at 09:00; Stop 08/08/19 at 09:35; Status DC Vancomycin HCl (Vancomycin Trough Level) 1 each 1X ONCE MC ; Start 08/09/19 at 08:30; Stop 08/09/19 at 08:31; Status Cancel Lactulose (Lactulose) 20 gm TID PO Last administered on 08/10/19at 08:14; Start 08/08/19 at 14:00 Nicotine Polacrilex (Nicorette Gum) 1 each PRN Q1HR PRN BC SMOKING CESSATION Last administered on 08/09/19at 22:38; Start 08/08/19 at 22:00 Potassium Chloride/Water 100 ml @ 100 mls/hr Q1H IV Last administered on 08/09/19at 16:15; Start 08/09/19 at 13:30; Stop 08/09/19 at 15:29; Status DC Potassium Chloride (Klor-Con) 40 meq 1X ONCE PO Last administered on 08/09/19at 14:25; Start 08/09/19 at 13:15; Stop 08/09/19 at 13:17; Status DC Magnesium Sulfate 50 ml @ 25 mls/hr 1X ONCE IV Last administered on 08/09/19at 17:40; Start 08/09/19 at 13:30; Stop 08/09/19 at 15:29; Status DC Folic Acid (Folic Acid) 1 mg DAILY PO ; Start 08/12/19 at 09:00 Multivitamins (Thera M Plus) 1 tab DAILY PO ; Start 08/12/19 at 09:00 Thiamine Mononitrate (Vitamin B-1) 100 mg DAILY PO ; Start 08/12/19 at 09:00 Vitals/I & O Vital Sign - Last 24 Hours 08/09/19 08/09/19 08/09/19 08/09/19 11:02 14:27 15:00 19:00 Temp 98.4 98.0 97.7 98.4 98.0 97.7 Pulse 80 85 84 86 Resp 18 18 B/P (MAP) 135/95 (108) 155/95 127/80 (96) 144/98 (113) Pulse Ox 96 98 98 O2 Delivery Room Air Room Air Room Air 08/09/19 08/09/19 08/09/19 08/09/19 19:49 20:12 20:24 23:00 Temp 98.4 98.4 Pulse 86 86 83 Resp 18 B/P (MAP) 144/98 144/98 131/83 (99) Pulse Ox 98 O2 Delivery Room Air Room Air 08/10/19 08/10/19 08/10/19 03:00 06:00 07:34 Temp 98.6 98.7 98.6 98.7 Pulse 84 84 84 Resp 18 18 B/P (MAP) 129/86 (100) 129/86 129/78 (95) Pulse Ox 98 99 O2 Delivery Room Air Room Air Intake and Output 08/09/19 08/09/19 08/10/19 15:00 23:00 07:00 Intake Total 1040 ml 600 ml 100 ml Output Total 400 ml Balance 640 ml 600 ml 100 ml DONAVON JENNINGS MD August 10, 2019 08:48
--- NOTE | 2019-08-10 10:47 | PDOC ---
CARDIO Progress Notes Date and Time Date of Service 08/10/19 Time of Evaluation 1045 Subjective Subjective: No Chest Pain, No shortness of breath, No Palpitations, Other (dressed, ready to go home ) Vitals Vitals Vital Signs Date Time Temp Pulse Resp B/P (MAP) Pulse Ox O2 Delivery O2 Flow Rate FiO2 08/10/19 08:00 Room Air 08/10/19 07:34 98.7 84 18 129/78 (95) 99 98.7 Weight Weight [ ] Input and Output Intake and Output Intake and Output 08/10/19 07:00 Intake Total 1740 ml Output Total 400 ml Balance 1340 ml Intake Oral 1540 ml IV Total 200 ml Output Urine Total 400 ml # Voids 7 # Bowel Movements 2 Laboratory Labs Laboratory Tests Test 08/10/19 03:09 Sodium Level 140 mmol/L (136-145) Potassium Level 4.2 mmol/L (3.5-5.1) Chloride Level 104 mmol/L (98-107) Carbon Dioxide Level 27 mmol/L (21-32) Anion Gap 9 (6-14) Blood Urea Nitrogen 12 mg/dL (8-26) Creatinine 0.8 mg/dL (0.7-1.3) Estimated GFR (Cockcroft-Gault) 105.5 Glucose Level 104 mg/dL (70-99) Calcium Level 8.0 mg/dL (8.5-10.1) Magnesium Level 2.1 mg/dL (1.8-2.4) Microbiology Micro Microbiology 08/06/19 Blood Culture - Preliminary, Resulted NO GROWTH AFTER 4 DAYS 08/05/19 Fecal Leukocyte Stain - Final, Complete Physical Exam HEENT: Neck Supple W Full Motion Chest: Symmetric LUNGS: Clear to Auscultation Heart: S1S2, RRR (off tele, heart tones regular) Abdomen: Soft N/T Extremities: No Edema Neurology: alert, oriented, follow commands Assessment Assessment 1. Metabolic, hepatic encephalopathy; mentation improved 2. ETOH abuse, elevated LFTs, cirrhosis. discussed/encouraged ETOH cessation. 3. Fevers, staph bacteremia; as per ID 4. Sinus tachycardia, physiologic. Improved. Supportive care from a CV standpoint. 5. Thrombocytopenia; improved 6. Nausea/vomiting, hypokalemia; replaced 7. Rhabdomyolysis; better with IVF KELLY RAMIREZ APRN August 10, 2019 10:47
--- NOTE | 2019-08-10 10:56 | PDOC ---
G I PROGRESS NOTE Subjective No GI complaints. Physical Exam Abdomen benign. Review of Relevant I have reviewed the following items bonnie (where applicable) has been applied. Labs Laboratory Tests Test 08/09/19 03:30 08/10/19 03:09 Sodium Level 140 mmol/L (136-145) 140 mmol/L (136-145) Potassium Level 3.3 mmol/L (3.5-5.1) 4.2 mmol/L (3.5-5.1) Chloride Level 104 mmol/L (98-107) 104 mmol/L (98-107) Carbon Dioxide Level 25 mmol/L (21-32) 27 mmol/L (21-32) Anion Gap 11 (6-14) 9 (6-14) Blood Urea Nitrogen 7 mg/dL (8-26) 12 mg/dL (8-26) Creatinine 0.7 mg/dL (0.7-1.3) 0.8 mg/dL (0.7-1.3) Estimated GFR (Cockcroft-Gault) 123.1 105.5 Glucose Level 100 mg/dL (70-99) 104 mg/dL (70-99) Calcium Level 7.9 mg/dL (8.5-10.1) 8.0 mg/dL (8.5-10.1) Magnesium Level 1.8 mg/dL (1.8-2.4) 2.1 mg/dL (1.8-2.4) Laboratory Tests Test 08/10/19 03:09 Sodium Level 140 mmol/L (136-145) Potassium Level 4.2 mmol/L (3.5-5.1) Chloride Level 104 mmol/L (98-107) Carbon Dioxide Level 27 mmol/L (21-32) Anion Gap 9 (6-14) Blood Urea Nitrogen 12 mg/dL (8-26) Creatinine 0.8 mg/dL (0.7-1.3) Estimated GFR (Cockcroft-Gault) 105.5 Glucose Level 104 mg/dL (70-99) Calcium Level 8.0 mg/dL (8.5-10.1) Magnesium Level 2.1 mg/dL (1.8-2.4) Microbiology 08/06/19 Blood Culture - Preliminary, Resulted NO GROWTH AFTER 4 DAYS 08/05/19 Fecal Leukocyte Stain - Final, Complete Vitals/I & O Vital Sign - Last 24 Hours 08/09/19 08/09/19 08/09/19 08/09/19 11:02 14:27 15:00 19:00 Temp 98.4 98.0 97.7 98.4 98.0 97.7 Pulse 80 85 84 86 Resp 18 18 B/P (MAP) 135/95 (108) 155/95 127/80 (96) 144/98 (113) Pulse Ox 96 98 98 O2 Delivery Room Air Room Air Room Air 08/09/19 08/09/19 08/09/19 08/09/19 19:49 20:12 20:24 23:00 Temp 98.4 98.4 Pulse 86 86 83 Resp 18 B/P (MAP) 144/98 144/98 131/83 (99) Pulse Ox 98 O2 Delivery Room Air Room Air 08/10/19 08/10/19 08/10/19 08/10/19 03:00 06:00 07:34 08:00 Temp 98.6 98.7 98.6 98.7 Pulse 84 84 84 Resp 18 18 B/P (MAP) 129/86 (100) 129/86 129/78 (95) Pulse Ox 98 99 O2 Delivery Room Air Room Air Room Air Intake and Output 08/09/19 08/09/19 08/10/19 15:00 23:00 07:00 Intake Total 1040 ml 600 ml 100 ml Output Total 400 ml Balance 640 ml 600 ml 100 ml Problem List Problems Medical Problems: (1) AMS (altered mental status) Status: Acute (2) Cough Status: Acute (3) Hypokalemia Status: Acute (4) Person under investigation for COVID-19 Status: Acute (5) Rhabdomyolysis Status: Acute (6) Sepsis Status: Acute (7) Shortness of breath Status: Acute Assessment Alcoholic liver disease, at least steatosis. No strong clinical evidence for established cirrhosis. Plan of Care Note Again admonished to stop drinking. Hemodynamically unstable?: No Is patient in severe pain?: No Is NPO status required?: No JULIUS TIWARI MD August 10, 2019 10:56
[2019-08-10] MEDS ORDERED: DOXYCYCLINE HYCLATE 100 MG TABLET PO SCH (11:00)
[2019-08-10 11:01] VITALS: BP 118/86
[2019-08-10] MEDS ORDERED: DOXY100T PO (11:02)
--- NOTE | 2019-08-10 11:06 | PDOC3 ---
Discharge Summary Visit Information Date of Admission: August 04, 2019 Date of Discharge: August 10, 2019 Admitting Diagnosis: Acute rhabdomyolysis Final Diagnosis Problems Medical Problems: (1) AMS (altered mental status) Status: Acute (2) Cough Status: Acute (3) Hypokalemia Status: Acute (4) Person under investigation for COVID-19 Status: Acute (5) Rhabdomyolysis Status: Acute (6) Sepsis Status: Acute (7) Shortness of breath Status: Acute Brief Hospital Course Allergies Allergies Coded Allergies Type Severity Reaction Last Updated Verified No Known Drug Allergies 08/04/19 No Vital Signs Vital Signs Date Time Temp Pulse Resp B/P (MAP) Pulse Ox O2 Delivery O2 Flow Rate FiO2 08/10/19 08:00 Room Air 08/10/19 07:34 98.7 84 18 129/78 (95) 99 98.7 Lab Results Laboratory Tests Test 08/09/19 03:30 08/10/19 03:09 Sodium Level 140 mmol/L (136-145) 140 mmol/L (136-145) Potassium Level 3.3 mmol/L (3.5-5.1) 4.2 mmol/L (3.5-5.1) Chloride Level 104 mmol/L (98-107) 104 mmol/L (98-107) Carbon Dioxide Level 25 mmol/L (21-32) 27 mmol/L (21-32) Anion Gap 11 (6-14) 9 (6-14) Blood Urea Nitrogen 7 mg/dL (8-26) 12 mg/dL (8-26) Creatinine 0.7 mg/dL (0.7-1.3) 0.8 mg/dL (0.7-1.3) Estimated GFR (Cockcroft-Gault) 123.1 105.5 Glucose Level 100 mg/dL (70-99) 104 mg/dL (70-99) Calcium Level 7.9 mg/dL (8.5-10.1) 8.0 mg/dL (8.5-10.1) Magnesium Level 1.8 mg/dL (1.8-2.4) 2.1 mg/dL (1.8-2.4) Laboratory Tests Test 08/10/19 03:09 Sodium Level 140 mmol/L (136-145) Potassium Level 4.2 mmol/L (3.5-5.1) Chloride Level 104 mmol/L (98-107) Carbon Dioxide Level 27 mmol/L (21-32) Anion Gap 9 (6-14) Blood Urea Nitrogen 12 mg/dL (8-26) Creatinine 0.8 mg/dL (0.7-1.3) Estimated GFR (Cockcroft-Gault) 105.5 Glucose Level 104 mg/dL (70-99) Calcium Level 8.0 mg/dL (8.5-10.1) Magnesium Level 2.1 mg/dL (1.8-2.4) Brief Hospital Course Mr Raymond is a 43 yo M w/ no PMHx comes to the ED with multiple complaints. He had not been feeling well for the last 3 weeks with nausea, vomiting, diarrhea, cough, shortness of breath, some intermittent fever and chills. He has been quarantined at home for about 3 weeks and has been wondering that he may have caught up something at work. He feels weak. He was found to have a fever of 99.6. White count of 10, hemoglobin of 14.2, hematocrit 42, platelets of 104. Potassium of 2.9, sodium of 137, creatinine of 1.1. Lactate of 14.5, ferritin 1689, bilirubin 0.8, AST 186, ALT 128, alkaline phosphatase 106. CK 1184, albumin 3.5, lipase 359. Procalcitonin 0.23. Ammonia 32. The patient got a dose of azithromycin, was started on cefepime. ID consult has been requested for antibiotic management. Neurology for confusion. Blood culture 1/4 bottles is positive for Gram-positive cocci in clusters. The patient underwent a head CT for altered mental status, which did not show any acute intracranial process. Chest x-ray showed no acute cardiopulmonary process. Abdominal imaging concerning for chronic pancreatitis and liver disease. 08/06: No acute events reported overnight, case discussed with nursing staff patient in no acute distress no complaints during my visit. Drinks 2 pints a day of vodka, denies tick bites, or exposure to deers, rabbits, has not hunted since he was a child 08/07: Bowel movement x2 this morning. More alert today. He is shaking, weak. He tells me in the same sentence he was drinking 2 pints per day of hard alcohol, then tells me it has been 2 weeks, then notes it has been a month since he has had a drink. He notes his appetite has improved. 07/18/25: Afebrile overnight. More alert today. No shaking. Eating and drinking nearly 100%. No cough or SOB. Feeling stronger today. K 3.3. Mg 1.8. Afebrile overnight. Staph hominis on blood cultures, sensitive to doxy. He is very anxious to have a cigarette and leave. Labs stable. Consults: Neurology, ID, GI, Cardiology Problem list: Altered mental status hx severe alcohol abuse ACUTE METABOLIC ENCEPHALOPATHY Positive blood culture? contaminent Febrile illness etiology undetermined his COVID 19 is negative. Blood culture 1/4 bottles is positive for Gram-positive cocci in clusters.SECOND BOTTLE OF THIS SET IS NOW POSITIVE, ALSO WITh GRAM POSITIVE COCCI IN CLUSTERS. Nausea, vomiting, diarrhea. seems to have subsided, will continue to monitor Macrocytic anemia WITH THROMBOCYTOPENIA elevated lactic acid which is resolved, porbably secondary to emesis and poor oral intake with moderate to severe dehydration Elevated CPK secondary to dehydration and retching effort Hypokalemia secondary to emesis and diarrhea transaminitis sec to ETOH likely Hepatomegaly and hepatic steatosis. ELEVATED D-DIMER 38 min pt exam, chart review, > 50% of time spent with exam, chart review, pt care coordination Discharge Information Condition at Discharge: Improved Follow Up: Weeks (1) Disposition/Orders: D/C to Home Scheduled Doxycycline Hyclate (Doxycycline Hyclate) 100 Mg Tablet, 100 MG PO BID for Staph infection for 10 Days, #20 Prescribed by: JERRY ACEVES MD on 08/10/19 1102 Hemodynamically unstable?: No Is patient in severe pain?: No Is NPO status required?: No JERRY ACEVES MD August 10, 2019 11:06
--- NOTE | 2019-08-10 11:20 | NUR ---
PT DISCHARGED TO HOME WITH SELF CARE. DISCHARGE TEACHING DONE AND PT VERBALIZED UNDERSTANDING. SCRIPT GIVEN FOR DOXYCYCLINE AND FIRST DOSE GIVEN PRIOR TO DISCHARGE. PT PICKED UP BY FATHER.
[2019-08-12] MEDS ORDERED: FOLIC ACID 1 MG TABLET. PO SCH (09:00)
[2019-08-12] MEDS ORDERED: THIAMINE 100 MG TABLET. PO SCH (09:00)
[2019-08-12] MEDS ORDERED: MULTIVITAMIN with MINERAL TABLET. PO SCH (09:00)
== END 2019-08-10 11:20 | disposition home or self-care (01) | DRG 871 ==
LOC: ER 17:36 → ED HOLD 19:00 → 6 SOUTH 21:35
PROVIDERS: ADMIT Family Medicine; ATTEND Family Medicine
DX: A41.2 Sepsis due to unspecified staphylococcus (principal); G93.41 Metabolic encephalopathy; E87.2 Acidosis; M62.82 Rhabdomyolysis; D53.9 Nutritional anemia, unspecified; D69.6 Thrombocytopenia, unspecified; D75.89 Other specified diseases of blood and blood-forming organs; E86.0 Dehydration; E87.6 Hypokalemia; F10.20 Alcohol dependence, uncomplicated; F17.200 Nicotine dependence, unspecified, uncomplicated; K70.40 Alcoholic hepatic failure without coma; K74.60 Unspecified cirrhosis of liver; K76.0 Fatty (change of) liver, not elsewhere classified; F32.9 Major depressive disorder, single episode, unspecified; F41.9 Anxiety disorder, unspecified; K21.9 Gastro-esophageal reflux disease without esophagitis; Z20.828 Contact with and (suspected) exposure to other viral communicable diseases; R19.7 Diarrhea, unspecified; F22 Delusional disorders
CPT/HCPCS: 36415; 70450; 71045; 76700; 80048; 80053; 80202; 80307; 81001; 82140; 82550; 82553; 82565; 82607; 82728; 82977; 83540; 83550; 83605; 83690; 83735; 83880; 84132; 84145; 84443; 84484; 85007; 85025; 85379; 85384; 85610; 85651; 85730; 86000; 86140; 86703; 86705; 86709; 86803; 87040; 87205; 87328; 87329; 87340; 87493; 93005; 94760; 96361; 96365; 96366; 96368; 96375; 99285; J0360; J0456; J0692; J0696; J1200; J1630; J1650; J2060; J3370; J3411; J3475; J3480; J3486; J3490; J7030; J7050; J7060; G0378; U0003-CS

== ENCOUNTER 2019-08-23 22:29 | Emergency (ER) | payer SELFPAY ==
[~2019-08-23] VITALS: Ht 180.3 cm; Wt 73.0 kg
[~2019-08-23 22:29] MED LIST: DOXY100T PO
[2019-08-23] MEDS ORDERED: IV NORMAL SALINE 1000ML BAG 1,000 ML IV ONE (22:45)
--- NOTE | 2019-08-23 22:47 | PHYS DOC ---
Past Medical History Past Medical History: No Pertinent History Past Surgical History: No Surgical History Smoking Status: Never Smoker Alcohol Use: Occasionally General Adult EDM: Chief Complaint: WITHDRAWL HPI: HPI: Patient is a 43 year old male who presents indicating that he has been falling out at home. He states that he is not sure why he is passing out. Family had indicated that patient is withdrawing from drugs or alcohol but patient denies using drugs or alcohol and states that he is just weak and feels dehydrated. Patient is very adamant that he has not drank any alcohol in over a month. Patient understands the dangers of alcohol withdrawal seizures and still insists that he has not had any alcohol to drink in over a month. [] Review of Systems: Review of Systems: Constitutional: Denies fever or chills. [] Respiratory: Denies cough or shortness of breath. [] Cardiovascular: Denies chest pain or edema. [] GI: Denies abdominal pain, nausea, vomiting or diarrhea. [] Neurologic: Denies headache, focal weakness or sensory changes. Complains of syncope [] A full 10 point review of systems has been reviewed and is otherwise negative. Heart Score: Risk Factors: Risk Factors: DM, Current or recent (<one month) smoker, HTN, HLP, family history of CAD, obesity. Risk Scores: Score 0 - 3: 2.5% MACE over next 6 weeks - Discharge Home Score 4 - 6: 20.3% MACE over next 6 weeks - Admit for Clinical Observation Score 7 - 10: 72.7% MACE over next 6 weeks - Early Invasive Strategies Current Medications: Current Medications Medications (Trade) Dose Ordered Sig/Cris Start Time Stop Time Status Last Admin Dose Admin Sodium Chloride 1,000 ml @ 1,000 mls/hr 1X ONCE 08/23/19 22:45 08/23/19 23:44 UNV Allergies: Allergies: Allergies Coded Allergies Type Severity Reaction Last Updated Verified No Known Drug Allergies 08/04/19 No Physical Exam: PE: Constitutional: Well developed, well nourished, no acute distress, non-toxic appearance. [] HENT: Normocephalic, atraumatic, bilateral external ears normal, oropharynx moist, no oral exudates, nose normal. [] Eyes: PERRLA, EOMI, conjunctiva normal, no discharge. [] Neck: Normal range of motion, no tenderness, supple, no stridor. [] Cardiovascular: Mildly tachycardic rate with regular rhythm [] Lungs & Thorax: Bilateral breath sounds clear to auscultation [] Abdomen: Bowel sounds normal, soft, no tenderness. [] Skin: Warm, dry, no erythema, no rash. [] Extremities: No tenderness, no cyanosis, no clubbing, ROM intact, no edema. [] Neurologic: Alert and oriented X 3, no focal deficits noted. [] EKG: EKG: [] Radiology/Procedures: Radiology/Procedures: [] Course & Med Decision Making: Course & Med Decision Making Pertinent Labs and Imaging studies reviewed. (See chart for details) [] Dragon Disclaimer: Dragon Disclaimer: This electronic medical record was generated, in whole or in part, using a voice recognition dictation system. Departure Departure Impression: Primary Impression: Vasovagal syncope Additional Impressions: Hypomagnesemia Methamphetamine abuse Disposition: HOME, SELF-CARE Condition: STABLE Referrals: UNKNOWN PCP NAME (PCP) Patient Instructions: Hypomagnesemia, Syncope Justicifation of Admission Dx: Justifications for Admission: Justification of Admission Dx: N/A OSIEL BRADLEY Jr. DO Aug 23, 2019 22:47
[2019-08-23 22:54] LABS: BASO # 0.1 x10^3/uL (0.0-0.2); BASO % 1 % (0-3); EOS % 0 % (0-3); HEMATOCRIT 42.8 % (39.0-53.0); LYMPH # 0.8 x10^3/uL (1.0-4.8); LYMPH % 8 % (24-48); MEAN CORPUSCULAR HEMOGLOBIN 36 pg (25-35); MEAN CORPUSCULAR HGB CONC 35 g/dL (31-37); MEAN CORPUSCULAR VOLUME 103 fL (79-100); MONO # 0.7 x10^3/uL (0.0-1.1); MONO % 7 % (0-9); NEUT % 84 % (31-73); PLATELET COUNT 137 x10^3/uL (140-400); RED BLOOD COUNT 4.17 x10^6/uL (4.30-5.70); RED CELL DISTRIBUTION WIDTH 13.5 % (11.5-14.5); WHITE BLOOD COUNT 9.6 x10^3/uL (4.0-11.0)
[2019-08-23 23:03] LABS: PROTHROMBIN TIME PATIENT 12.5 SEC (11.7-14.0)
[2019-08-23 23:05] LABS: CALCIUM 9.7 mg/dL (8.5-10.1); CREATININE 1.2 mg/dL (0.7-1.3); GFR 66.1; POTASSIUM 3.2 mmol/L (3.5-5.1)
[2019-08-23 23:10] LABS: ALBUMIN 4.2 g/dL (3.4-5.0); DIRECT BILIRUBIN 0.3 mg/dL (0.0-0.2); MAGNESIUM 1.1 mg/dL (1.8-2.4); TOTAL BILIRUBIN 1.1 mg/dL (0.2-1.0); TOTAL PROTEIN 8.5 g/dL (6.4-8.2)
[2019-08-23 23:36] LABS: BILIRUBIN,URINE NEGATIVE (NEG); CLARITY,URINE CLEAR; COLOR,URINE AMBER; NITRITE,URINE NEGATIVE (NEG); PH,URINE 8.5 (<5.0-8.0); PROTEIN,URINE >=300 mg/dL (NEG-TRACE); UROBILINOGEN,URINE 0.2 mg/dL (0.2 mg/dL)
[2019-08-23 23:42] LABS: SQUAMOUS EPITHELIAL CELL,UR FEW /LPF
[2019-08-23 23:43] LABS: BACTERIA,URINE 0 /HPF (0-FEW); WBC,URINE RARE /HPF (0-4)
[2019-08-23 23:44] LABS: AMPHETAMINE/METHAMPHETAMINE POS (NEG); BARBITURATES NEG (NEG); BENZODIAZEPINES NEG (NEG); CANNABINOIDS NEG (NEG); COCAINE NEG (NEG); METHADONE NEG (NEG); OPIATES NEG (NEG); PHENCYCLIDINE NEG (NEG)
[2019-08-24] MEDS ORDERED: POTASSIUM CHLORIDE 20 MEQ TABLET.ER. PO ONE (01:30)
[2019-08-24] MEDS ORDERED: MAGNESIUM SULFATE 2GM 50 ML IV ONE (01:30)
[2019-08-24 03:21] VITALS: BP 158/94
--- NOTE | 2019-08-24 06:25 | EKG ---
[facility] [address] [place] [address] Test Date: 2019-08-23 Test Time: 22:47:09 Pat Name: ZHAO MCLEAN Department: Room: Gender: M Pony [employer] Finisher: : 1975 Requested By: OSIEL BRADLEY Order Number: [id number] Reading MD: Gonzalo Montes Measurements Intervals Moore Rate: 108 P: -117 KS: 116 QRS: 78 QRSD: 78 T: 66 QT: 328 QTc: 443 Interpretive Statements SINUS TACHYCARDIA Electronically Signed On 08-26-2019 16:19:45 CDT by Gonzalo Montes
== END 2019-08-24 03:30 | disposition home or self-care (01) ==
LOC: ER 22:29
DX: R55 Syncope and collapse (principal); E83.42 Hypomagnesemia; F15.10 Other stimulant abuse, uncomplicated; E86.0 Dehydration; R53.1 Weakness
CPT/HCPCS: 36415; 80048; 80076; 80307; 81001; 83735; 85025; 85610; 85730; 93005; 96361; 96365; 99285; G0480; J3475; J7030